=== PATIENT | male | born 1945 | race Two or more races ===

== ENCOUNTER → 2016-12-30 11:37 | Emergency (ER) | payer MEDICARE ==
[2016-12-30 12:09] LABS: Hematocrit 31 % (42-52); Hemoglobin 9.9 g/dl (14.0-18.0); Mean Corpuscular HGB Conc 32 g/dl (31-36); Mean Corpuscular Hemoglobin 28 pg (27-31); Mean Corpuscular Volume 88 fL (80-94); Mean Platelet Volume 11 um3 (7.4-10.4); Red Cell Distribution Width 17 % (10.5-15); White Blood Count 4.7 10^3/ul (3.5-10.8)
[2016-12-30 12:26] LABS: Albumin 3.7 g/dL (3.2-5.2); BUN/Creatinine Ratio 15.7 (8-20); Calcium 8.8 mg/dL (8.6-10.3); EGFR African American 40.1 (>60); EGFR Non-African American 31.2 (>60); Globulin 3.2 g/dL (2-4); Potassium 4.9 mmol/L (3.5-5.0); Total Bilirubin 0.6 mg/dL (0.2-1.0); Total Protein 6.9 g/dL (6.4-8.9)
--- NOTE | 2016-12-30 12:27 | RAD ---
HISTORY: Shortness of breath COMPARISONS: November 06, 2016, CT dated March 24, 2016 VIEWS: 2: Frontal dual-energy and lateral views of the chest. FINDINGS: CARDIOMEDIASTINAL SILHOUETTE: The cardiomediastinal silhouette is normal. MARYBETH: The marybeth are normal. PLEURA: The costophrenic angles are sharp. No pleural abnormalities are noted. LUNG PARENCHYMA: There is hyperinflation with flattening of the diaphragm and expansion of the AP diameter of the chest. ABDOMEN: The upper abdomen is clear. There is no subphrenic gas. BONES AND SOFT TISSUES: No bone or soft tissue abnormalities are noted. OTHER: None. IMPRESSION: HYPERINFLATION, CONSISTENT WITH COPD. NO ACTIVE CARDIOPULMONARY DISEASE.
[2016-12-30 12:54] LABS: C Reactive Protein 11.79 mg/L (< 5.00)
[2016-12-30 15:37] VITALS: BP 132/67
--- NOTE | 2016-12-31 17:51 | ED ---
Nilton Collier Aidan, scribed for Lauri Singh MD on 12/30/16 at 1212 . Shortness of Breath - HPI Summary HPI Summary: 71 y/o male presents to the ED with a complaint of acute, constant moderate SOB on light exertion that began 4-5 days ago and worsened today. Associated symptoms include bilateral lower extremity edema. Additionally, 2 days ago he made many BMs. Pt denies any CP, cough, fevers, chills, abdominal pain, nausea, or vomiting. - History of Current Complaint Chief Complaint: EDShortnessOfBreath Time Seen by Provider: 12/30/16 11:46 Hx Obtained From: Patient Onset/Duration: Sudden Onset, Lasting Days, Still Present, Worse Since - today Timing: Constant - during mild exertion, as light as bending over or standing up Current Severity: Mild Dyspnea At: Exertion - very light exertion Aggrevating Factors: Nothing - unknown Alleviating Factors: Nothing - unknown Associated Signs & Symptoms: Edema - bilateral lower extremity edema, 2 days ago , pt made many BMs - Risk Factors Pulmonary Embolism: Smoking Cardiac: Smoking, Hypertension - Allergy/Home Medications Allergies/Adverse Reactions: Allergies Allergy/AdvReac Type Severity Reaction Status Date / Time Cephalexin [From Keflex] Allergy Mild Rash Verified 12/30/16 11:39 Ciprofloxacin [From Cipro] Allergy Mild Rash Verified 12/30/16 11:39 Oxaprozin [From Daypro] Allergy Rash Verified 12/30/16 11:39 PMH/Surg Hx/FS Hx/Imm Hx Endocrine/Hematology History: Denies: Hx Diabetes, Hx Systemic Lupus Erythematosus Cardiovascular History: Reports: Hx Angina - not currently, Hx Hypercholesterolemia, Hx Hypertension, Hx Valvular Heart Disease, Other Cardiovascular Problems/Disorders - cardiac stents Denies: Hx Congestive Heart Failure, Hx Pacemaker/ICD Respiratory History: Reports: Hx Sleep Apnea, Other Respiratory Problems/ Disorders Denies: Hx Asthma GI History: Reports: Hx Hiatal Hernia, Hx Jaundice, Other GI Disorders - ,hx constipation History: Reports: Hx Renal Disease - VERY LOW GFR/ RENAL INSUFFIENCEY, Other Problems/Disorders - RECENT BLOOD IN URINE Denies: Hx Dialysis Musculoskeletal History: Denies: Hx Rheumatoid Arthritis Sensory History: Reports: Hx Contacts or Glasses - GLASSES Denies: Hx Cataracts, Hx Glaucoma, Hx Hearing Aid Opthamlomology History: Reports: Hx Contacts or Glasses - GLASSES Denies: Hx Cataracts, Hx Glaucoma Psychiatric History: Denies: Hx Panic Disorder - Cancer History Cancer Type, Location and Year: colon ca -dr caban pt. LYMPH NODE - W/ CHEMO & RADIATION Hx Chemotherapy: Yes Hx Radiation Therapy: Yes - Surgical History Surgery Procedure, Year, and Place: colon cancer dx 8 yrs prior with a partial bowel resection,. partial thyroidectomy benign,. cardiac stents AT [facility]- REPORT IN OTHER FACILTY REPORTS ( [id number]/CM) Hx Anesthesia Reactions: No Infectious Disease History: No Infectious Disease History: Denies: Hx Clostridium Difficile, Hx Hepatitis, Hx Human Immunodeficiency Virus (HIV), Hx of Known/Suspected MRSA, Hx Shingles, Hx Tuberculosis, Hx Known/ Suspected VRE, Hx Known/Suspected VRSA, History Other Infectious Disease, Traveled Outside the [place] in Last 30 Days - Family History Known Family History: Positive: Cardiac Disease - CAD - BROTHER, Other - BLADDER CANCER - FATHER - Social History Occupation: Employed Full-time Lives: With Family Alcohol Use: None Alcohol Amount: 12 WINE/SCOTCH MONTH Hx Substance Use: No Substance Use Type: Reports: None Hx Tobacco Use: Yes Smoking Status (MU): Light Every Day Tobacco Smoker Type: Cigarettes Amount Used/How Often: 1/2 PPD FOR 50 YRS Length of Time of Smoking/Using Tobacco: 50 YRS Have You Smoked in the Last Year: Yes Review of Systems Constitutional: Negative Eyes: Negative ENT: Negative Cardiovascular: Negative Positive: Shortness Of Breath. Negative: Cough Gastrointestinal: Negative Genitourinary: Negative Positive: Edema. Negative: Arthralgia, Myalgia, Decreased ROM Skin: Negative Neurological: Negative Psychological: Normal All Other Systems Reviewed And Are Negative: Yes Physical Exam - Summary Physical Exam Summary: VITAL SIGNS: Reviewed. elderly male with no acute distress GENERAL: Patient is a well-developed and nourished (MALE) who is lying comfortable in the stretcher. Patient is not in any acute respiratory distress. HEAD AND FACE: No signs of trauma. No ecchymosis, hematomas or skull depressions. No sinus tenderness. EYES: PERRLA, EOMI x 2, No injected conjunctiva, no nystagmus. EARS: Hearing grossly intact. Ear canals and tympanic membranes are within normal limits. MOUTH: Oropharynx within normal limits. NECK: Supple, trachea is midline, no adenopathy, no JVD, no carotid bruit, no c- spine tenderness, neck with full ROM. CHEST: Symmetric, no tenderness at palpation LUNGS: Clear to auscultation bilaterally. No wheezing or crackles. CVS: Regular rate and rhythm, S1 and S2 present, no murmurs or gallops appreciated. ABDOMEN: Soft, non-tender. No signs of distention. No rebound no guarding, and no masses palpated. Bowel sounds are normal. EXTREMITIES: FROM in all major joints, no edema, no cyanosis or clubbing. NEURO: Alert and oriented x 3. No acute neurological deficits. Speech is normal and follows commands. SKIN: Dry and warm Vital Signs On Initial Exam: Initial Vitals Temp Pulse Resp BP Pulse Ox 97.5 F 62 18 132/68 100 12/30/16 11:39 12/30/16 11:39 12/30/16 11:39 12/30/16 11:39 12/30/16 11:39 Diagnostics - Vital Signs Vital Signs Temp Pulse Resp BP Pulse Ox 12/30/16 11:39 97.5 F 62 18 132/68 100 - Laboratory Result Diagrams: 12/30/16 12:00 12/30/16 12:00 Lab Statement: Any lab studies that have been ordered have been reviewed, and results considered in the medical decision making process. - Radiology CHEST X-RAY Xray Interpretation: Positive (See Comments) - IMPRESSION: HYPERINFLATION, CONSISTENT WITH COPD. NO ACTIVE CARDIOPULMONARY DISEASE. Radiology Interpretation Completed By: Radiologist - EKG EKG 1147 Cardiac Rate: Bradycardia - 61 BPM EKG Rhythm: Sinus Rhythm EKG Interpretation: SINUS RHYTHM, NO ST ELEVATIONS, NO CHANGES FROM PRIOR EKG ON 12/28/16 Course/Dx - Course Course Of Treatment: 71 y/o male presents with SOB on very light exertion. Labs and imaging reviewed. Troponin was 0.00. Tests results within normal limits except for mild chronic anemia, chronic renal failure, and BNP of 378. D-Dimer was 264. At this time, the patient may be having SOB secondary to chronic anemia, secondary to chronic renal failure since SOB is only on exertion. Chest x-ray doesnt show any pneumonia or bronchitis. I discussed the findings and tests results with the patient and patients nephew who is a avionics electronics technician at [employer]. He does not wish to do a VQ scan since he thinks the symptoms are secondary to chronic anemia. Therefore they want to be discharged home and follow up with nephrology. At this time the patient is A&Ox3 and asymptomatic. Therefore, he will be discharged home with follow up to [facility] cho[facility]. The patient will be diagnosed with dehydration and anemia. - Diagnoses Provider Diagnoses: Dehydration, Anemia Discharge - Discharge Plan Condition: Stable Disposition: HOME Discharge Disposition Comment: Please follow up with nephrology within 3 days. Patient Education Materials: Dehydration (ED), Anemia (ED) Referrals: Yuri Moran MD [Primary Care Provider] - The documentation as recorded by the Nilton marin Aidan accurately reflects the service I personally performed and the decisions made by , Lauri Singh MD.
== END | disposition home or self-care (01) ==
LOC: ED 11:37
DX: E86.0 Dehydration (principal); D64.9 Anemia, unspecified; R06.02 Shortness of breath; R60.0 Localized edema
CPT/HCPCS: 36415; 71020; 80053; 82550; 82553; 83605; 83880; 84484; 85025; 85379; 85730; 86140; 87040; 93005; 99283

== ENCOUNTER 2017-01-18 13:04 | Emergency (ER) | payer MEDICARE ==
[2017-01-18] MEDS ORDERED: Clindamycin 600 MG IVPREMIX(* 600 MG/50 ML SDV IV ONE (13:57)
[2017-01-18 14:35] LABS: Hematocrit 36 % (42-52); Hemoglobin 11.8 g/dl (14.0-18.0); Mean Corpuscular HGB Conc 33 g/dl (31-36); Mean Corpuscular Hemoglobin 29 pg (27-31); Mean Corpuscular Volume 89 fL (80-94); Mean Platelet Volume 10 um3 (7.4-10.4); Red Blood Count 4.02 10^6/ul (4.0-5.4); Red Cell Distribution Width 16 % (10.5-15); White Blood Count 9.4 10^3/ul (3.5-10.8)
[2017-01-18 14:52] LABS: BUN/Creatinine Ratio 15.6 (8-20); Calcium 9.6 mg/dL (8.6-10.3); EGFR African American 46.2 (>60); EGFR Non-African American 35.9 (>60); Globulin 4.1 g/dL (2-4); Potassium 3.9 mmol/L (3.5-5.0); Total Bilirubin 1.3 mg/dL (0.2-1.0); Total Protein 8.1 g/dL (6.4-8.9)
[2017-01-18] MEDS ORDERED: NS 0.9% 1000 ML* 1,000 ML IV ONE (15:04)
[2017-01-18] MEDS ORDERED: Iodixanol* (CONTRAST) 320 MG/ML 100 ML SDV IV ONE (15:17)
--- NOTE | 2017-01-18 15:52 | ED ---
Throat Pain/Nasal Congestion - HPI Summary HPI Summary: 71M w/ PMH of renal insufficiency and colon CA presents with left side dental pain for 3 weeks. He has been on PCN for 10 days and the swelling on the left side of his face has been getting worst and is moving down his neck. He has trismus. He denies any fever, chest pain, SOB, or difficulty swallowing. He states pain in his tooth as at 17-18. He was seen by dentist today and transferred here for antibiotic change. He will have his tooth removed when dental infection is done. He has not been taking anything for pain and does not want anything. He did have CA in his lymph nodes and had radiation in his neck with last dose three years ago so he says his bones are weaker in his jaw. His cancer treatment was done at [facility]. - History of Current Complaint Chief Complaint: EDDentalPain Time Seen by Provider: 01/18/17 13:16 - Allergies/Home Medications Allergies/Adverse Reactions: Allergies Allergy/AdvReac Type Severity Reaction Status Date / Time Cephalexin [From Keflex] Allergy Mild Rash Verified 12/30/16 11:39 Ciprofloxacin [From Cipro] Allergy Mild Rash Verified 12/30/16 11:39 Oxaprozin [From Daypro] Allergy Rash Verified 12/30/16 11:39 PMH/Surg Hx/FS Hx/Imm Hx Endocrine/Hematology History: Denies: Hx Diabetes, Hx Systemic Lupus Erythematosus Cardiovascular History: Reports: Hx Angina - not currently, Hx Hypercholesterolemia, Hx Hypertension, Hx Valvular Heart Disease, Other Cardiovascular Problems/Disorders - cardiac stents Denies: Hx Congestive Heart Failure, Hx Pacemaker/ICD Respiratory History: Reports: Hx Sleep Apnea, Other Respiratory Problems/ Disorders Denies: Hx Asthma GI History: Reports: Hx Hiatal Hernia, Hx Jaundice, Other GI Disorders - ,hx constipation History: Reports: Hx Renal Disease - VERY LOW GFR/ RENAL INSUFFIENCEY, Other Problems/Disorders - RECENT BLOOD IN URINE Denies: Hx Dialysis Musculoskeletal History: Denies: Hx Rheumatoid Arthritis Sensory History: Reports: Hx Contacts or Glasses - GLASSES Denies: Hx Cataracts, Hx Glaucoma, Hx Hearing Aid Opthamlomology History: Reports: Hx Contacts or Glasses - GLASSES Denies: Hx Cataracts, Hx Glaucoma Psychiatric History: Denies: Hx Panic Disorder - Cancer History Cancer Type, Location and Year: colon ca -dr caban pt. LYMPH NODE - W/ CHEMO & RADIATION Hx Chemotherapy: Yes Hx Radiation Therapy: Yes - Surgical History Surgery Procedure, Year, and Place: colon cancer dx 8 yrs prior with a partial bowel resection,. partial thyroidectomy benign,. cardiac stents AT [facility]- REPORT IN OTHER FACILTY REPORTS ( [facility]) Hx Anesthesia Reactions: No Infectious Disease History: No Infectious Disease History: Denies: Hx Clostridium Difficile, Hx Hepatitis, Hx Human Immunodeficiency Virus (HIV), Hx of Known/Suspected MRSA, Hx Shingles, Hx Tuberculosis, Hx Known/ Suspected VRE, Hx Known/Suspected VRSA, History Other Infectious Disease, Traveled Outside the [place] in Last 30 Days - Family History Known Family History: Positive: None, Cardiac Disease - CAD - BROTHER, Other - BLADDER CANCER - FATHER - Social History Alcohol Use: None Alcohol Amount: 12 WINE/SCOTCH MONTH Hx Substance Use: No Substance Use Type: Reports: None Hx Tobacco Use: Yes Smoking Status (MU): Light Every Day Tobacco Smoker Type: Cigarettes Amount Used/How Often: 1/2 PPD FOR 50 YRS Length of Time of Smoking/Using Tobacco: 50 YRS Have You Smoked in the Last Year: Yes Review of Systems Negative: Fever Positive: Dental Pain Negative: Chest Pain Negative: Shortness Of Breath All Other Systems Reviewed And Are Negative: Yes Physical Exam Triage Information Reviewed: Yes Vital Signs On Initial Exam: Initial Vitals Temp Pulse Resp BP Pulse Ox 98.8 F 89 18 157/64 99 01/18/17 13:07 01/18/17 13:07 01/18/17 13:07 01/18/17 13:07 01/18/17 13:07 Vital Signs Reviewed: Yes Appearance: Positive: Well-Appearing Skin: Positive: Warm, Dry Head/Face: Positive: Other - swelling noted to left lower jaw that extends half way down neck Eyes: Positive: Normal, EOMI, JOSTIN, Conjunctiva Clear ENT: Positive: TMs normal, Trismus. Negative: Muffled/hoarse voice Dental: Positive: Percussion Tenderness @ - 17-18, Gross Decay/Caries @ Neck: Positive: Other: - tender along left side of neck Respiratory/Lung Sounds: Positive: Clear to Auscultation, Breath Sounds Present Cardiovascular: Positive: Normal, RRR Diagnostics - Vital Signs Vital Signs Temp Pulse Resp BP Pulse Ox 01/18/17 13:30 98.8 F 89 18 157/64 99 01/18/17 13:07 98.8 F 89 18 157/64 99 - Laboratory Lab Results: Lab Results 01/18/17 01/18/17 01/18/17 Range/Units 14:20 14:20 14:20 WBC 9.4 (3.5-10.8) 10^3/ul RBC 4.02 (4.0-5.4) 10^6/ul Hgb 11.8 L (14.0-18.0) g/dl Hct 36 L (42-52) % MCV 89 (80-94) fL MCH 29 (27-31) pg MCHC 33 (31-36) g/dl RDW 16 H (10.5-15) % Plt Count 156 (150-450) 10^3/ul MPV 10 (7.4-10.4) um3 Neut % (Auto) 82.1 (38-83) % Lymph % (Auto) 7.5 L (25-47) % Butler % (Auto) 10.0 H (1-9) % Eos % (Auto) 0.1 (0-6) % Baso % (Auto) 0.3 (0-2) % Absolute Neuts (auto) 7.7 (1.5-7.7) 10^3/ul Absolute Lymphs (auto) 0.7 L (1.0-4.8) 10^3/ul Absolute Monos (auto) 0.9 H (0-0.8) 10^3/ul Absolute Eos (auto) 0 (0-0.6) 10^3/ul Absolute Basos (auto) 0 (0-0.2) 10^3/ul Absolute Nucleated RBC 0 10^3/ul Nucleated RBC % 0 Sodium 135 (133-145) mmol/L Potassium 3.9 (3.5-5.0) mmol/L Chloride 98 L (101-111) mmol/L Carbon Dioxide 28 (22-32) mmol/L Anion Gap 9 (2-11) mmol/L BUN 29 H (6-24) mg/dL Creatinine 1.86 H (0.67-1.17) mg/dL Est GFR ( Amer) 46.2 (>60) Est GFR (Non-Af Amer) 35.9 (>60) BUN/Creatinine Ratio 15.6 (8-20) Glucose 117 H (70-100) mg/dL Lactic Acid 3.0 H* (0.5-2.0) mmol/L Calcium 9.6 (8.6-10.3) mg/dL Total Bilirubin 1.30 H (0.2-1.0) mg/dL AST 15 (13-39) U/L ALT 10 (7-52) U/L Alkaline Phosphatase 84 (34-104) U/L Total Protein 8.1 (6.4-8.9) g/dL Albumin 4.0 (3.2-5.2) g/dL Globulin 4.1 H (2-4) g/dL Albumin/Globulin Ratio 1.0 (1-3) Result Diagrams: 01/18/17 14:20 01/18/17 14:20 Lab Statement: Any lab studies that have been ordered have been reviewed, and results considered in the medical decision making process. - CT neck CT Interpretation: Positive (See Comments) - IMPRESSION: 1. THERE IS ASYMMETRIC ENLARGEMENT OF THE LEFT MASSETER WITH GAS DENSITY NOTED ALONG THE MANDIBLE, CONSISTENT WITH CELLULITIS EXTENDING FROM AN ODONTOGENIC INFECTION. THERE IS NO DEFINITE LOCULATED FLUID COLLECTION TO SUGGEST SOFT TISSUE ABSCESS. THERE IS ASSOCIATED PERIAPICAL LUCENCY OF THE LEFT MANDIBULAR MOLARS 2. ADDITIONALLY, THERE IS A NONDISPLACED FRACTURE OF THE LEFT MANDIBULAR MOLAR WITH EXTENSION TO THE ALVEOLAR PROCESSES OF THE LAST MANDIBULAR MOLARS. 3. AGAIN NOTED IS ASYMMETRIC MUCOSAL THICKENING OF THE LEFT PIRIFORM SINUS. 4. AGAIN NOTED IS HETEROGENEOUS AND ENLARGED RIGHT THYROID IS SUBSTERNAL EXTENSION CT Interpretation Completed By: Radiologist EENT Course/Dx - Course Course Of Treatment: 71M w/ PMH of renal insufficiency and throat CA presents with left side dental pain for 3 weeks. He has been on PCN for 10 days and the swelling on the left side of his face has been getting worst and is moving down his neck. He has trismus. He denies any fever, chest pain, SOB, or difficulty swallowing. He states pain in his lower left jaw. He was seen by dentist today and transferred here for antibiotic change. He did have CA in his lymph nodes and had radiation with last dose three years ago His cancer treatment was done at [facility]. On exam has trismus and extensive swelling of left side of jaw to half way down neck. CT neck shows cellulitis near mandible no definitive osteomyelitis seen but has fracture of mandibular molar with extension to other molars. spoke with dr ruth recommended speak with ENT as no oral surgery. gave clindamycin 900mg. Spoke with Dr Michaels who is familiar with patient and says patient needs to be transfer as will likely need extensive surgery and no oral surgery on. offered to transfer to [place] where had CA treatment and patient would like to go to [facility]. discussed signing out AMA vs ambulance as family brought it up and patient states would like ambulance. called [facility] and dr Blake accepts transfer - Differential Diagnoses Differential Diagnoses: Dental Abscess, Dhruv's Angina, Other - osteomyelitis - Diagnoses Provider Diagnoses: Dental abscess, Osteomyelitis of jaw - Provider Notifications Discussed Care Of Patient With: dr Michaels Time Discussed With Above Provider: 16:15 - patient has extensive CA history and will be too complicated a surgery for [facility] and no oral surgery coverage so recommends transfer Discharge - Discharge Plan Condition: Stable Disposition: TRANS HIGHER LVL OF CARE FAC Referrals: Yuri Moran MD [Primary Care Provider] - Images - Images Dental: 1 - dental pain
--- NOTE | 2017-01-18 15:52 | RAD ---
HISTORY: Left lower dental abscess with swelling down back COMPARISONS: November 03, 2015 TECHNIQUE: Multiple contiguous axial CT scans were obtained of the neck after the administration of nonionic intravenous contrast, with coronal and sagittal multiplanar reformations. FINDINGS: BRAIN AND ORBITS: The visualized brain and orbits are normal. PARANASAL SINUSES: There is mucosal thickening of the left maxillary sinus SALIVARY GLANDS: The parotid glands, submandibular glands, sublingual glands are normal. NASAL CAVITY/NASOPHARYNX: The nasal cavity and nasopharynx are normal. ORAL CAVITY/OROPHARYNX: There is asymmetric enlargement of the left masseter with gas density noted along the angle of the left mandible. Additionally, there is periapical lucency along the last mandibular molar with cortical disruption. Additionally, there is a nondisplaced fracture of the angle of the mandible extending to the alveoli of the left mandibular molars. There is stable asymmetric mucosal thickening of the left piriform sinus LARYNGEAL APPARATUS/HYPOPHARYNX: The laryngeal apparatus and hypopharynx are normal. UPPER AIRWAY/UPPER ESOPHAGUS: The visualized upper airway and esophagus are normal. LUNG APICES: The lung apices are clear. THYROID GLAND: The left thyroid is absent. Again noted is a heterogeneous and enlarged multinodular right thyroid with substernal extension. This is similar to the previous examination LYMPH NODES: There are scattered small, less than 1 cm short axis, lymph nodes noted along the anterior and posterior cervical chain. There is no lymphadenopathy by size criteria. VASCULATURE: There is calcification of the carotid bifurcations. BONES AND SOFT TISSUES: Degenerative changes are noted of the spine. Note is noted above, there is a nondisplaced fracture through the angle of the left mandible with extension to the alveoli of the last mandibular molars OTHER: None. IMPRESSION: 1. THERE IS ASYMMETRIC ENLARGEMENT OF THE LEFT MASSETER WITH GAS DENSITY NOTED ALONG THE MANDIBLE, CONSISTENT WITH CELLULITIS EXTENDING FROM AN ODONTOGENIC INFECTION. THERE IS NO DEFINITE LOCULATED FLUID COLLECTION TO SUGGEST SOFT TISSUE ABSCESS. THERE IS ASSOCIATED PERIAPICAL LUCENCY OF THE LEFT MANDIBULAR MOLARS 2. ADDITIONALLY, THERE IS A NONDISPLACED FRACTURE OF THE LEFT MANDIBULAR MOLAR WITH EXTENSION TO THE ALVEOLAR PROCESSES OF THE LAST MANDIBULAR MOLARS. 3. AGAIN NOTED IS ASYMMETRIC MUCOSAL THICKENING OF THE LEFT PIRIFORM SINUS. 4. AGAIN NOTED IS HETEROGENEOUS AND ENLARGED RIGHT THYROID IS SUBSTERNAL EXTENSION
[2017-01-18] MEDS ORDERED: Clindamycin 300 MG IVPREMIX(* 300 MG/50 ML SDV IV ONE (16:29)
[2017-01-18 16:43] VITALS: BP 156/69
== END 2017-01-18 17:52 | disposition short-term general hospital (02) ==
LOC: ED 13:04
DX: M86.9 Osteomyelitis, unspecified (principal); K04.7 Periapical abscess without sinus; K08.89 Other specified disorders of teeth and supporting structures
CPT/HCPCS: 36415; 70491; 80053; 83605; 85025; 96365; 99283; Q9967

== ENCOUNTER 2017-02-03 09:06 | Emergency (ER) | payer MEDICARE ==
[2017-02-03 09:13] VITALS: BP 171/67
--- NOTE | 2017-02-03 10:34 | RAD ---
Indication: PICC line removal. Comparison is made with previous exam dated December 30, 2016. 2 views of the chest including dual energy PA views demonstrates no mediastinal shift. Heart is of normal size and configuration. Hyperinflated lung lord are noted. Specifically there is no evidence of a residual PICC line fragment. IMPRESSION: Hyperinflated lung lord with no definite pneumonia.
--- NOTE | 2017-02-03 17:38 | ED ---
Genet Collier Auryana, scribed for Lauri Singh MD on 02/03/17 at 1006 . Complex/Multi-Sys Presentation - HPI Summary HPI Summary: 71 year old male presents to the ED with c/o PICC line removal. Patient reports that this morning when he was removing clothes, the PICC line was accidentally pulled out with it. 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 Patient denies any other problems today. PMHx is significant for lymphoma, HTN, cardiac stents, and colon CA with resection. - History Of Current Complaint Chief Complaint: EDGeneral Time Seen by Provider: 02/03/17 09:56 Hx Obtained From: Patient Onset/Duration: Sudden Onset - this morning, Still Present Timing: Constant Severity Currently: Mild Severity Initially: Mild Location: Negative Associated Signs And Symptoms: Positive: Other - no other c/o aside from accidental PICC removal Related History: Recent Illness - see HPI - Allergies/Home Medications Allergies/Adverse Reactions: Allergies Allergy/AdvReac Type Severity Reaction Status Date / Time Cephalexin [From Keflex] Allergy Mild Rash Verified 02/03/17 09:09 Ciprofloxacin [From Cipro] Allergy Mild Rash Verified 02/03/17 09:09 Oxaprozin [From Daypro] Allergy Rash Verified 02/03/17 09:09 PMH/Surg Hx/FS Hx/Imm Hx Endocrine/Hematology History: Denies: Hx Diabetes, Hx Systemic Lupus Erythematosus Cardiovascular History: Reports: Hx Angina - not currently, Hx Hypercholesterolemia, Hx Hypertension, Hx Valvular Heart Disease, Other Cardiovascular Problems/Disorders - cardiac stents Denies: Hx Congestive Heart Failure, Hx Pacemaker/ICD Respiratory History: Reports: Hx Sleep Apnea, Other Respiratory Problems/ Disorders Denies: Hx Asthma GI History: Reports: Hx Hiatal Hernia, Hx Jaundice, Other GI Disorders - ,hx constipation History: Reports: Hx Renal Disease - VERY LOW GFR/ RENAL INSUFFIENCEY, Other Problems/Disorders - RECENT BLOOD IN URINE Denies: Hx Dialysis Musculoskeletal History: Denies: Hx Rheumatoid Arthritis Sensory History: Reports: Hx Contacts or Glasses - GLASSES Denies: Hx Cataracts, Hx Glaucoma, Hx Hearing Aid Opthamlomology History: Reports: Hx Contacts or Glasses - GLASSES Denies: Hx Cataracts, Hx Glaucoma Psychiatric History: Denies: Hx Panic Disorder - Cancer History Cancer Type, Location and Year: colon ca -dr caban pt. LYMPH NODE - W/ CHEMO & RADIATION Hx Chemotherapy: Yes Hx Radiation Therapy: Yes - Surgical History Surgery Procedure, Year, and Place: colon cancer dx 8 yrs prior with a partial bowel resection,. partial thyroidectomy benign,. cardiac stents AT [facility]- REPORT IN OTHER FACILTY REPORTS ( [facility]/CM) Hx Anesthesia Reactions: No Infectious Disease History: No Infectious Disease History: Denies: Hx Clostridium Difficile, Hx Hepatitis, Hx Human Immunodeficiency Virus (HIV), Hx of Known/Suspected MRSA, Hx Shingles, Hx Tuberculosis, Hx Known/ Suspected VRE, Hx Known/Suspected VRSA, History Other Infectious Disease, Traveled Outside the [place] in Last 30 Days - Family History Known Family History: Positive: Cardiac Disease - CAD - BROTHER, Other - BLADDER CANCER - FATHER - Social History Alcohol Use: None Alcohol Amount: 12 WINE/SCOTCH MONTH Hx Substance Use: No Substance Use Type: Reports: None Hx Tobacco Use: Yes Smoking Status (MU): Light Every Day Tobacco Smoker Type: Cigarettes Amount Used/How Often: 1/2 PPD FOR 50 YRS Length of Time of Smoking/Using Tobacco: 50 YRS Have You Smoked in the Last Year: Yes Review of Systems Constitutional: Negative Negative: Fever Eyes: Negative ENT: Negative Cardiovascular: Negative Respiratory: Negative Gastrointestinal: Negative Genitourinary: Negative Musculoskeletal: Negative Positive: Other - removed PICC line Neurological: Negative Psychological: Normal All Other Systems Reviewed And Are Negative: Yes Physical Exam - Summary Physical Exam Summary: VITAL SIGNS: Reviewed. GENERAL: Patient is a well-developed and nourished male who is lying comfortable in the stretcher. Patient is not in any acute respiratory distress. No signs of pain. HEAD AND FACE: No signs of trauma. No ecchymosis, hematomas or skull depressions. No sinus tenderness. EYES: PERRLA, EOMI x 2, No injected conjunctiva, no nystagmus. EARS: Hearing grossly intact. Ear canals and tympanic membranes are within normal limits. MOUTH: Oropharynx within normal limits. NECK: Supple, trachea is midline, no adenopathy, no JVD, no carotid bruit, no c- spine tenderness, neck with full ROM. CHEST: Symmetric, no tenderness at palpation LUNGS: Clear to auscultation bilaterally. No wheezing or crackles. CVS: Regular rate and rhythm, S1 and S2 present, no murmurs or gallops appreciated. ABDOMEN: Soft, non-tender. No signs of distention. No rebound no guarding, and no masses palpated. Bowel sounds are normal. EXTREMITIES: FROM in all major joints, no edema, no cyanosis or clubbing. NEURO: Alert and oriented x 3. No acute neurological deficits. Speech is normal and follows commands. SKIN: Dry and warm. No signs of bleeding. Triage Information Reviewed: Yes Vital Signs On Initial Exam: Initial Vitals Temp Pulse Resp BP Pulse Ox 97.0 F 78 18 171/67 99 02/03/17 09:09 02/03/17 09:09 02/03/17 09:09 02/03/17 09:09 02/03/17 09:09 Vital Signs Reviewed: Yes Diagnostics - Vital Signs Vital Signs Temp Pulse Resp BP Pulse Ox 02/03/17 09:09 97.0 F 78 18 171/67 99 - Laboratory Lab Statement: Any lab studies that have been ordered have been reviewed, and results considered in the medical decision making process. - Radiology CXR Xray Interpretation: No Acute Changes - IMPRESSION: Hyperinflated lung lord with no definite pneumonia. Radiology Interpretation Completed By: Radiologist Complex Multi-Symp Course/Dx Assessment/Plan: 71 year old male presents to the ED with c/o PICC line removal. Patient reports that this morning when he was removing clothes, the PICC line was accidentally pulled out with it. 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 Patient denies any other problems today. PMHx is significant for lymphoma, HTN, cardiac stents, and colon CA with resection. Patient accidentally removed his picc line for which he gets antibiotic infusion 24 hours per day for jaw osteomyelitis. CXR - IMPRESSION: Hyperinflated lung lord with no definite pneumonia. Troy Cerda charge nurse reports there is no IR for picc line placement. I offered peripheral access for continuation of antibiotics or transfer patient to [facility]. However patient and patients daughter declines. They will drive to [facility] where initially the picc line was placed. Patient will be discharged home with f/u of PMD. - Diagnoses Provider Diagnoses: accidental PICC line removal Discharge - Discharge Plan Condition: Stable Disposition: HOME Patient Education Materials: Peripherally Inserted Central Catheters and Midline Catheters (ED) Referrals: Yuri Moran MD [Medical Doctor] - () Additional Instructions: PLEASE FOLLOW UP AT [facility] FOR REPLACEMENT OF PICC LINE. The documentation as recorded by the Genet marin Auryana accurately reflects the service I personally performed and the decisions made by , Lauri Singh MD.
== END 2017-02-03 11:06 | disposition home or self-care (01) ==
LOC: ED 09:06
DX: Z45.2 Encounter for adjustment and management of vascular access device (principal)
CPT/HCPCS: 71020; 99282

== ENCOUNTER 2017-02-03 21:08 | Emergency (ER) | payer MEDICARE ==
[2017-02-04 01:40] LABS: Hematocrit 29 % (42-52); Hemoglobin 9.6 g/dl (14.0-18.0); Mean Corpuscular HGB Conc 33 g/dl (31-36); Mean Corpuscular Hemoglobin 30 pg (27-31); Mean Corpuscular Volume 89 fL (80-94); Mean Platelet Volume 9 um3 (7.4-10.4); Red Blood Count 3.23 10^6/ul (4.0-5.4); Red Cell Distribution Width 17 % (10.5-15); White Blood Count 5.8 10^3/ul (3.5-10.8)
[2017-02-04 02:11] LABS: BUN/Creatinine Ratio 15.9 (8-20); Calcium 9.2 mg/dL (8.6-10.3); EGFR African American 47.3 (>60); EGFR Non-African American 36.8 (>60); Potassium 4.1 mmol/L (3.5-5.0)
[2017-02-04] MEDS ORDERED: Vancomycin(*) 1,000 MG in NS 0.9% 250 ML* 250 ML IVPB ONE (02:20)
--- NOTE | 2017-02-04 03:15 | ED ---
Shante Collier Rebecca, scribed for Matthew Vega MD on 02/04/17 at 0025 . Complex/Multi-Sys Presentation - HPI Summary HPI Summary: Pt is a 71 y/o M who presents to ED after accidentally removing/losing his PICC line this morning. Associated pain is currently mild, ranked 2/10. Sx aggravated and alleviated by nothing. Pt initially had PICC line put in place to receive Abx to treat osteomyelitis of the jaw. Reports that he consulted with Dr. Singh who advised that he come to [facility] ED where an IV could be put in place. Per pt, he was told this would allow him to receive IV Abx for the next 48 hours as an outpatient, with a new PICC line put in place in 2 days. - History Of Current Complaint Chief Complaint: EDGeneral Time Seen by Provider: 02/04/17 00:16 Hx Obtained From: Patient Onset/Duration: Still Present Severity Initially: Mild Location: Pain At: - PICC line location Aggravating Factor(s): Nothing Alleviating Factor(s): Nothing Associated Signs And Symptoms: Positive: Other - PICC line removed - Allergies/Home Medications Allergies/Adverse Reactions: Allergies Allergy/AdvReac Type Severity Reaction Status Date / Time Cephalexin [From Keflex] Allergy Mild Rash Verified 02/03/17 09:09 Ciprofloxacin [From Cipro] Allergy Mild Rash Verified 02/03/17 09:09 Oxaprozin [From Daypro] Allergy Rash Verified 02/03/17 09:09 PMH/Surg Hx/FS Hx/Imm Hx Endocrine/Hematology History: Denies: Hx Diabetes, Hx Systemic Lupus Erythematosus Cardiovascular History: Reports: Hx Angina - not currently, Hx Hypercholesterolemia, Hx Hypertension, Hx Valvular Heart Disease, Other Cardiovascular Problems/Disorders - cardiac stents Denies: Hx Congestive Heart Failure, Hx Pacemaker/ICD Respiratory History: Reports: Hx Sleep Apnea, Other Respiratory Problems/ Disorders Denies: Hx Asthma GI History: Reports: Hx Hiatal Hernia, Hx Jaundice, Other GI Disorders - ,hx constipation History: Reports: Hx Renal Disease - VERY LOW GFR/ RENAL INSUFFIENCEY, Other Problems/Disorders - RECENT BLOOD IN URINE Denies: Hx Dialysis Musculoskeletal History: Denies: Hx Rheumatoid Arthritis Sensory History: Reports: Hx Contacts or Glasses - GLASSES Denies: Hx Cataracts, Hx Glaucoma, Hx Hearing Aid Opthamlomology History: Reports: Hx Contacts or Glasses - GLASSES Denies: Hx Cataracts, Hx Glaucoma Psychiatric History: Denies: Hx Panic Disorder - Cancer History Cancer Type, Location and Year: colon ca -dr caban pt. LYMPH NODE - W/ CHEMO & RADIATION Hx Chemotherapy: Yes Hx Radiation Therapy: Yes - Surgical History Surgery Procedure, Year, and Place: colon cancer dx 8 yrs prior with a partial bowel resection,. partial thyroidectomy benign,. cardiac stents AT [facility]- REPORT IN OTHER FACILTY REPORTS ( [facility]/CM) Hx Anesthesia Reactions: No Infectious Disease History: Denies: Hx Clostridium Difficile, Hx Hepatitis, Hx Human Immunodeficiency Virus (HIV), Hx of Known/Suspected MRSA, Hx Shingles, Hx Tuberculosis, Hx Known/ Suspected VRE, Hx Known/Suspected VRSA, History Other Infectious Disease, Traveled Outside the in Last 30 Days - Family History Known Family History: Positive: Cardiac Disease - CAD - BROTHER, Other - BLADDER CANCER - FATHER - Social History Alcohol Use: None Alcohol Amount: 12 WINE/SCOTCH MONTH Hx Substance Use: No Substance Use Type: Reports: None Hx Tobacco Use: Yes Smoking Status (MU): Light Every Day Tobacco Smoker Type: Cigarettes Amount Used/How Often: 1/2 PPD FOR 50 YRS Length of Time of Smoking/Using Tobacco: 50 YRS Have You Smoked in the Last Year: Yes Review of Systems Negative: Fever Positive: other - PICC line removal All Other Systems Reviewed And Are Negative: Yes Physical Exam Triage Information Reviewed: Yes Vital Signs On Initial Exam: Initial Vitals Temp Pulse Resp BP Pulse Ox 97.6 F 76 20 124/56 98 02/03/17 21:10 02/03/17 21:10 02/03/17 21:10 02/03/17 21:10 02/03/17 21:10 Vital Signs Reviewed: Yes Appearance: Positive: Well-Appearing - anxious Skin: Positive: Warm Head/Face: Positive: Normal Head/Face Inspection Eyes: Positive: JOSTIN ENT: Positive: Hearing grossly normal Neck: Positive: Supple Respiratory/Lung Sounds: Positive: Clear to Auscultation, Breath Sounds Present Cardiovascular: Positive: RRR Abdomen Description: Positive: Nontender, Soft Bowel Sounds: Positive: Present Musculoskeletal: Positive: Strength/ROM Intact Neurological: Positive: Alert, Oriented to Person Place, Time Psychiatric: Positive: Anxious Diagnostics - Vital Signs Vital Signs Temp Pulse Resp BP Pulse Ox 02/03/17 22:38 97.3 F 67 16 147/60 99 02/03/17 21:10 97.6 F 76 20 124/56 98 - Laboratory Result Diagrams: 02/04/17 01:25 02/04/17 01:25 Lab Statement: Any lab studies that have been ordered have been reviewed, and results considered in the medical decision making process. Re-Evaluation - Re-Evaluation First Eval Comment: after discussion with Dr Singh it was recommended to give pt dose of zosyn and vanco in ED pt then to be d/c home with PICC to be replaced tomorrow Complex Multi-Symp Course/Dx Assessment/Plan: Pt is a 71 y/o M who presents to ED after accidentally removing /losing his PICC line this morning. Associated pain is currently mild, ranked 2/ 10. Reports that he consulted with Dr. Singh who advised that he come to [facility] ED where an IV could be put in place. Per pt, he was told this would allow him to receive IV Abx for the next 48 hours as an outpatient, with a new PICC line put in place in 2 days. Discussed care of pt with Dr. Singh, making him aware of the pt. In the ED course, the pt received Vancomycin and Zosyn. He will be D/C to home with Dx of osteomyelitis and a follow up with Dr. Singh. He understands and agrees. Patient's medications reviewed this visit. - Diagnoses Provider Diagnoses: Osteomyelitis - Physician Notifications Discussed Care Of Patient With: Enrique Singh Time Discussed With Above Provider: 00:43 Instructed by Provider To: Other - Made him aware of the pt, discussing the case. Discharge - Discharge Plan Condition: Stable Disposition: HOME Patient Education Materials: Osteomyelitis (ED) Referrals: Enrique Singh MD [Medical Doctor] - 3 Days The documentation as recorded by the Shante marin Rebecca accurately reflects the service I personally performed and the decisions made by me, Matthew Vega MD.
[2017-02-04 06:21] VITALS: BP 152/57
== END 2017-02-04 06:21 | disposition home or self-care (01) ==
LOC: ED 21:08
DX: M86.9 Osteomyelitis, unspecified (principal)
CPT/HCPCS: 36415; 80048; 85025; 96365; 99283; J2543; J3370

== ENCOUNTER 2017-08-25 13:30 | Emergency (ER) | payer MEDICARE ==
[2017-08-25 13:51] VITALS: BP 191/88
--- NOTE | 2017-08-25 15:10 | UC ---
Dizzy HPI HPI Summary: States he woke up and stood up when he felt he had imbalance during the first several steps for several seconds. Denies falling, states he felt he was veering more to his left. He has previous history of BPPV but denies similarities. 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 partial thyroidectomy benign,. cardiac stents AT [facility]- REPORT IN OTHER FACILTY REPORTS ( [facility]/CM) - Family History Known Family History: Positive: None, Cardiac Disease - CAD - BROTHER, Other - BLADDER CANCER - FATHER - Social History Alcohol Use: None Alcohol Amount: 12 WINE/SCOTCH MONTH Substance Use Type: None Smoking Status (MU): Light Every Day Tobacco Smoker Type: Cigarettes Amount Used/How Often: 1/2 PPD FOR 50 YRS Length of Time of Smoking/Using Tobacco: 50 YRS Have You Smoked in the Last Year: Yes When Did the Patient Quit Smoking/Using Tobacco: August 2013 - Immunization History Most Recent Influenza Vaccination: 04/2013 Most Recent Tetanus Shot: WITHIN PAST 10 YRS Most Recent Pneumonia Vaccination: NONE Review of Systems Constitutional: Negative ENT: Nasal Discharge Respiratory: Negative Cardiovascular: Negative Gastrointestinal: Negative Genitourinary: Negative All Other Systems Reviewed And Are Negative: Yes Physical Exam Triage Information Reviewed: Yes Appearance: Well-Appearing, No Pain Distress Vital Signs: Initial Vital Signs Temp 97.2 F 08/25/17 13:48 Pulse 51 08/25/17 13:48 Resp 16 08/25/17 13:48 BP 191/88 08/25/17 13:48 Pulse Ox 100 08/25/17 13:48 Vital Signs Reviewed: Yes Eye Exam: Normal ENT Exam: Normal Dental Exam: Normal Neck exam: Normal Respiratory Exam: Normal Cardiovascular Exam: Normal Abdominal Exam: Normal Bowel Sounds: Positive: Present Musculoskeletal Exam: Normal Musculoskeletal: Positive: Strength Intact, ROM Intact, No Edema Neurological Exam: Other - romberg negative, CN 2-12 grossly intact, tiptoe/ heel walk wnl Neurological: Positive: Alert, Muscle Tone Normal Psychological: Positive: Normal Response To Family, Age Appropriate Behavior Skin Exam: Normal Dizzy Course/Dx - Differential Dx/Diagnosis Provider Diagnoses: Dizziness. Orthostatic hypotension Discharge - Discharge Plan Condition: Stable Disposition: HOME Patient Education Materials: Dizziness (ED), Lightheadedness (ED) Referrals: Jessica Palma MD [Primary Care Provider] -
== END 2017-08-25 15:20 | disposition home or self-care (01) ==
LOC: UCEAST 13:30
DX: R42 Dizziness and giddiness (principal); I95.1 Orthostatic hypotension; R00.1 Bradycardia, unspecified; M83.8 Other adult osteomalacia; E78.5 Hyperlipidemia, unspecified; I11.9 Hypertensive heart disease without heart failure; Z85.818 Personal history of malignant neoplasm of other sites of lip, oral cavity, and pharynx; Z85.038 Personal history of other malignant neoplasm of large intestine; E89.0 Postprocedural hypothyroidism; Z95.5 Presence of coronary angioplasty implant and graft; Z88.1 Allergy status to other antibiotic agents
CPT/HCPCS: 87502; 93005; 99211; G0463

== ENCOUNTER 2018-11-03 10:24 | Inpatient (IN) | payer MEDICARE ==
--- NOTE | 2018-11-03 10:46 | ED ---
Shortness of Breath - HPI Summary HPI Summary: This patient is a 73 year old M presenting to [facility] accompanied by a male with a chief complaint of worsening SOB since last night. The patient rates the pain 4/10 in severity. Patient reports CP and back pain. The patient had some lung fluid drained, which temporarily helped his symptoms, but they came back. He last had CP today, he had 3 nitros, and the pain has not gone away. He has a broken jaw because of radiation. PMHX cardiac problems, HTN. No PMHx diabetes, blood clots in legs or lungs. RX baby aspirin, Metoprolol. Vitals in the room: HR 69 bpm, BP 139/99. - History of Current Complaint Chief Complaint: EDShortnessOfBreath Time Seen by Provider: 11/03/18 10:40 Hx Obtained From: Patient Onset/Duration: Sudden Onset, Lasting Days Dyspnea At: Rest Associated Signs & Symptoms: Chest Pain Unrelated to Cough - Allergy/Home Medications Allergies/Adverse Reactions: Allergies Allergy/AdvReac Type Severity Reaction Status Date / Time cephalexin [From Keflex] Allergy Rash Verified 11/03/18 10:53 ciprofloxacin [From Cipro] Allergy Rash Verified 11/03/18 10:53 oxaprozin [From Daypro] Allergy Rash Verified 11/03/18 10:53 PMH/Surg Hx/FS Hx/Imm Hx Endocrine/Hematology History: Denies: Hx Diabetes, Hx Systemic Lupus Erythematosus Cardiovascular History: Reports: Hx Angina - not currently, Hx Hypercholesterolemia, Hx Hypertension, Hx Valvular Heart Disease, Other Cardiovascular Problems/Disorders - cardiac stents Denies: Hx Congestive Heart Failure, Hx Pacemaker/ICD Respiratory History: Reports: Hx Sleep Apnea, Other Respiratory Problems/ Disorders Denies: Hx Asthma GI History: Reports: Hx Hiatal Hernia, Hx Jaundice, Other GI Disorders - ,hx constipation History: Reports: Hx Renal Disease - VERY LOW GFR/ RENAL INSUFFIENCEY, Other Problems/Disorders - RECENT BLOOD IN URINE Denies: Hx Dialysis Musculoskeletal History: Denies: Hx Rheumatoid Arthritis Sensory History: Reports: Hx Contacts or Glasses - GLASSES Denies: Hx Cataracts, Hx Glaucoma, Hx Hearing Aid Opthamlomology History: Reports: Hx Contacts or Glasses - GLASSES Denies: Hx Cataracts, Hx Glaucoma Psychiatric History: Denies: Hx Panic Disorder - Cancer History Cancer Type, Location and Year: colon ca -dr caban pt. LYMPH NODE - W/ CHEMO & RADIATION Hx Chemotherapy: Yes Hx Radiation Therapy: Yes - Surgical History Surgery Procedure, Year, and Place: colon cancer dx 8 yrs prior with a partial bowel resection,. partial thyroidectomy benign,. cardiac stents AT [facility]- REPORT IN OTHER FACILTY REPORTS ( [id number]) Hx Anesthesia Reactions: No Infectious Disease History: No Infectious Disease History: Denies: Hx Clostridium Difficile, Hx Hepatitis, Hx Human Immunodeficiency Virus (HIV), Hx of Known/Suspected MRSA, Hx Shingles, Hx Tuberculosis, Hx Known/ Suspected VRE, Hx Known/Suspected VRSA, History Other Infectious Disease, Traveled Outside the [place] in Last 30 Days - Family History Known Family History: Positive: Cardiac Disease - CAD - BROTHER, Other - BLADDER CANCER - FATHER - Social History Alcohol Use: None Alcohol Amount: 12 WINE/SCOTCH MONTH Hx Substance Use: No Substance Use Type: Reports: None Hx Tobacco Use: Yes Smoking Status (MU): Light Every Day Tobacco Smoker Type: Cigarettes Amount Used/How Often: 1/2 PPD FOR 50 YRS Length of Time of Smoking/Using Tobacco: 50 YRS Have You Smoked in the Last Year: Yes Review of Systems Positive: Chest Pain Positive: Shortness Of Breath Positive: Myalgia - back All Other Systems Reviewed And Are Negative: Yes Physical Exam - Summary Physical Exam Summary: GENERAL: Patient is a well-developed and nourished male who is lying comfortable in the stretcher. Patient is not in any acute respiratory distress. HEAD AND FACE: Normocephalic EYES: PERRLA, EOMI x 2. EARS: Hearing grossly intact. MOUTH: Oropharynx within normal limits. NECK: Supple, trachea is midline, no adenopathy, no JVD, no carotid bruit. CHEST: Symmetric, no tenderness at palpation LUNGS: Clear to auscultation bilaterally. Crackles present. CVS: Regular rate and rhythm, S1 and S2 present, no murmurs or gallops appreciated. ABDOMEN: Soft, non-tender. Bowel sounds are normal. No abdominal abnormal pulsations. EXTREMITIES: Full ROM in all major joints, no edema, no cyanosis or clubbing. NEURO: Alert and oriented x 3. No acute neurological deficits. Speech is normal and follows commands. SKIN: Dry and warm Triage Information Reviewed: Yes Vital Signs On Initial Exam: Initial Vitals Temp Pulse Resp BP Pulse Ox 97.5 F 73 22 139/99 97 11/03/18 10:36 11/03/18 10:36 11/03/18 10:36 11/03/18 10:36 11/03/18 10:36 Vital Signs Reviewed: Yes Diagnostics - Vital Signs Vital Signs Temp Pulse Resp BP Pulse Ox 11/03/18 10:36 97.5 F 73 22 139/99 97 - Laboratory Result Diagrams: 11/03/18 10:53 11/03/18 10:53 Lab Statement: Any lab studies that have been ordered have been reviewed, and results considered in the medical decision making process. - Radiology CXR Radiology Interpretation Completed By: Radiologist Summary of Radiographic Findings: 1. MODERATE SIZE RIGHT PLEURAL EFFUSION. 2. COPD. ED physician has reviewed this report - EKG 10:29 Cardiac Rate: NL - 76 bpm EKG Rhythm: Sinus Rhythm Ectopy: PVCs EKG Comparison: No Significant Change - 08/25/17 Summary of EKG Findings: Ischemic changes in inferior leads, ventricular bigeminy 10:46 Cardiac Rate: NL - 65 bpm EKG Rhythm: Sinus Rhythm Ectopy: PVCs Summary of EKG Findings: Ischemic changes in inferior leads, ventricular bigeminy Course/Dx - Course Course Of Treatment: This patient is a 73 year old M presenting to [facility] accompanied by a male with a chief complaint of worsening SOB since last night. The patient rates the pain 4/10 in severity. Patient reports CP and back pain. An EKG reveals NSR 76 bpm, ventricular bigeminy, PVCs, similar to 08/25/17. Second EKG reveals NSR 65 bpm, ventricular bigeminy, PVCs. CXR reveals, per radiologist, 1. MODERATE SIZE RIGHT PLEURAL EFFUSION. 2. COPD. ED physician has reviewed this radiology report. Bloodwork/UA obtained. In the ED course the patient was given Furosemide. We discussed patient care with Dr. Awad, hospitalist, and they recommended admission. - Diagnoses Provider Diagnoses: SOB (shortness of breath), Pleural effusion - Physician Notifications Discussed Care of Patient With: Luke Awad Time Discussed With Above Provider: 12:26 Instructed by Provider To: Admit As Inpatient - Critical Care Time Critical Care Time: 30-74 min Discharge - Sign-Out/Discharge Documenting (check all that apply): Patient Departure - admission Patient Received Moderate/Deep Sedation with Procedure: No - Discharge Plan Condition: Fair Disposition: ADMITTED TO [facility] Referrals: Jessica Palma MD [Primary Care Provider] - - Billing Disposition and Condition Condition: FAIR Disposition: Admitted to [facility] - Attestation Statements Document Initiated by Scribe: Yes Documenting Scribe: Sami Carlson Provider For Whom Scribe is Documenting (Include Credential): Henrique Johnston MD Scribe Attestation: Sami Collier, martínibed for Henrique Johnston MD on 11/03/18 at 1523. Scribe Documentation Reviewed: Yes Provider Attestation: The documentation as recorded by the Sami marin accurately reflects the service I personally performed and the decisions made by Henrique singleton MD Status of Scribe Document: Viewed
[2018-11-03 11:02] LABS: ABS Basophils 0 10^3/ul (0-0.2); ABS Eosinophils 0 10^3/ul (0-0.6); ABS Lymphocytes 0.6 10^3/ul (1.0-4.8); ABS Monocytes 0.4 10^3/ul (0-0.8); ABS Neutrophils 3.7 10^3/ul (1.5-7.7); ABS Nucleated RBC 0 10^3/ul; Hematocrit 37 % (36-46); Hemoglobin 12.1 g/dL (14.0-18.0); Lymphocyte % 12.9 %; Mean Corpuscular HGB Conc 33 g/dL (31-36); Mean Corpuscular Hemoglobin 30 pg (27-31); Mean Corpuscular Volume 91 fL (80-94); Mean Platelet Volume 9.6 fL (7.4-10.4); Nucleated Red Blood Cells % 0; Platelet Count 151 10^3/uL (150-450); Red Cell Distribution Width 15 % (10.5-15); White Blood Count 4.8 10^3/uL (3.5-10.8)
[2018-11-03 11:14] LABS: Activated Partial Thrombo Time 33.1 seconds (26.0-36.3); INR 1.1 (0.77-1.02)
[2018-11-03 11:19] LABS: Albumin 3.6 g/dL (3.2-5.2); BUN/Creatinine Ratio 18.5 (8-20); Calcium 8.8 mg/dL (8.6-10.3); EGFR African American 48.6 (>60); EGFR Non-African American 40.1 (>60); Globulin 3.5 g/dL (2-4); Potassium 4.8 mmol/L (3.5-5.0); Total Bilirubin 0.6 mg/dL (0.2-1.0); Total Protein 7.1 g/dL (6.4-8.9)
[2018-11-03 11:21] LABS: Troponin I 0.01 ng/mL (<0.04)
[2018-11-03] MEDS ORDERED: Furosemide IV* 10 MG/ML VIAL (40 MG) IV SLOW PU ONE (11:57)
[2018-11-03 14:12] LABS: Troponin I 0.01 ng/mL (<0.04)
[2018-11-03] MEDS ORDERED: Nitroglycerin TAB 0.4 MG* 0.4 MG TAB SL PRN (14:12)
[2018-11-03] MEDS: Enoxaparin(*) 80 MG/0.8 ML SYR SUBCUT SCH (17:55)
[2018-11-03] MEDS ORDERED: Albuterol/Ipratropium NEB.SOL* Albuterol 2.5 MG/Ipratropium 0.5 MG 3 ML INH SCH (19:00)
[2018-11-03] MEDS ORDERED: Albuterol/Ipratropium NEB.SOL* Albuterol 2.5 MG/Ipratropium 0.5 MG 3 ML INH PRN (19:35)
[2018-11-03] MEDS ORDERED: Furosemide IV* 10 MG/ML 2 ML VIAL (20 MG) IV ONE (20:00)
[2018-11-03] MEDS: Metoprolol Tartrate TAB* 50 mg PO SCH (20:41)
[2018-11-03] MEDS: Amoxicillin PO (*) 500 MG CAP PO SCH (20:41)
--- NOTE | 2018-11-03 21:01 | HP ---
HISTORY AND PHYSICAL: DATE OF ADMISSION: 11/03/18 PROVIDER: Noe Diaz NP. ATTENDING PHYSICIAN: Dr. Awad * (report dictated by Noe Diaz NP). PRIMARY CARE PROVIDER: Dr. Jessica Palma and Dr. Aly who is covering for Dr. Palma while she is on maternity leave. CALENDER LET OFF HELPER: Dr. Aguilar. CHIEF COMPLAINT: Shortness of breath. HISTORY OF PRESENT ILLNESS: Mr. Henning is a 73-year-old male with a past medical history of current tobacco abuse; chronic kidney disease stage 3; history of head and neck cancer, status post surgery, radiation, chemo, and history of right-sided pleural effusion with a history of thoracentesis in 2016 and again on 10/22/18, in which both had negative pathology, who now presents with shortness of breath, found to have a moderate right-sided pleural effusion. The patient reports he went to see Dr. Aly at the end of September for worsening shortness of breath. She sent him for a CAT scan on 10/03/18, which showed a moderate right-sided pleural effusion with atelectasis in the right middle lobe and right lower lobe. The patient was then set up for thoracentesis on 10/22/[address] Nguyen in which 1.65 L of straw color fluid was aspirated in which the pathology showed no infectious or malignant cells. The patient then reports he felt much better for about 4 or 5 days and reports his shortness of breath slowly returned, stating that it has been worsening over the past 2 days with last night being the worst. He does report yesterday , during the day, he felt well enough to go out dinner with friends and when he returned home last evening, he was unable to lie flat in his bed and slept in the chair sitting up all night, stating he barely slept due to feeling shortness of breath. He then came to the emergency department this morning for further evaluation. Again, the chest x-ray is showing a moderate right-sided pleural effusion. In the ER, he was given 40 mg of Lasix IV. On evaluation of the patient in the emergency department, he is found to be sitting up comfortably, alert and oriented x3, visiting with his son. He states that his shortness of breath has greatly improved and feels much better. He reports that he did have chest pain this morning at home, which was midsternal, radiating straight through to his back. He states he took 3 nitro, which did relieve the pressure a little bit but states did return pretty quickly. He currently denies any chest pressure. His first 2 troponins in the ER are 0.01. He is noted to have intermittent bigeminy in the emergency department. Currently, the patient is asymptomatic. The patient does report he has had cough with some sputum production as well as he does report some wheezing. He states he takes no mediations at home for his COPD and does not have nebulizer or inhalers. He continues to smoke approximately 6 cigarettes a day. He denies any fevers or chills, but does report he has had some night sweats for the past 3 weeks, waking up "mildly damp." He denies any history of pulmonary embolism or DVT. Denies history of GI bleed. I discussed with the patient placing him on full strength Lovenox if his stool for occult blood returns negative until he can undergo a V/Q scan tomorrow. The patient is in agreement. PAST MEDICAL HISTORY: 1. Hypertension. 2. Coronary artery disease. 3. History of colon cancer in 2002. 4. 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 5. History of mitral regurgitation. 6. 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 7. Sleep apnea, is noncompliant with CPAP and follows with Dr. Aguilar. 8. Substernal goiter. 9. Cholelithiasis. 10. BPH. 11. History of fractured jaw secondary to radiation, complicated by osteomyelitis in which he is on suppressive amoxicillin and followed with Dr. Garza. 12. Chronic kidney disease stage 3. HOME MEDICATIONS: 1. Nitroglycerin 0.4 mg sublingual q.5 minutes p.r.n. 2. Metoprolol tartrate 50 mg p.o. b.i.d. 3. Avodart 0.5 mg p.o. daily. 4. Aspirin 81 mg p.o. daily. 5. Amoxicillin 500 mg p.o. b.i.d. ALLERGIES: CEPHALEXIN, CIPROFLOXACIN, OXAPROZIN. FAMILY HISTORY: Reviewed and noncontributory. 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 He lives at home with his . He has 3 children. He has been smoking tobacco since age 14 and currently smokes approximately 6 cigarettes a day. He reports occasional alcohol use. Denies excessive use. The patient has a full code. REVIEW OF SYSTEMS: A 14-point review of systems was performed. All the pertinent positives and negatives are mentioned in the history of present illness. Otherwise are negative. PHYSICAL EXAMINATION GENERAL APPEARANCE: Well-developed, 73-year-old male, sitting up in the emergency department stretcher, alert and oriented x3, in no acute distress. VITAL SIGNS: Temperature 97.8, heart rate 67, respirations 20, O2 sat 96% on room air, blood pressure 146/67. HEENT: Head is normocephalic, atraumatic. Pupils are equal and reactive to light. Oropharynx is clear. Moist mucous membranes. NECK: Supple. No JVD. LUNGS: Right middle lower lung are diminished, otherwise clear. No rhonchi, wheeze, rales noted. CARDIAC: S1, S2, regular rate and rhythm, no murmur appreciated. ABDOMEN: Soft, nontender, nondistended. No bowel sounds throughout. EXTREMITIES: No clubbing, cyanosis, or edema noted. NEUROLOGIC: Alert and oriented x3. Strength is 5/5 throughout. Moves all extremities. No focal deficits noted. LABORATORY DATA/DIAGNOSTIC STUDIES: Sodium 136, potassium 4.8, chloride 105, carbon dioxide 27, anion gap 4, BUN 31, creatinine 1.68, glucose 174, hemoglobin A1c 5.7, lactic acid 1.1, calcium 8.8, magnesium 2.0. Total bilirubin 0.60, AST 18, ALT 16, alkaline phosphatase 76. Troponin 0.01, second troponin 0.01, BNP 565. Total protein 7.1, albumin 3.6, B12 470. WBCs 4.8, RBC 4.00, HGB 12.1, HCT 37, MCV 91, MCH 30, MCHC 33, RDW 15, platelet count 151, INR 1.10. EKG, sinus rhythm with a rate of 65, ventricular bigeminy noted. Chest x-ray, impression: 1. Moderate size right pleural effusion. 2. COPD. ASSESSMENT AND PLAN: Mr. Henning is a 73-year-old male with a past medial history of current tobacco abuse, chronic kidney disease stage 3, previous history of head and neck cancer, chronic obstructive pulmonary disease, and history of right pleural effusion, recently undergoing thoracentesis on 10/22/18 , who presents today for worsening shortness of breath. 1. Shortness of breath. The patient's chest x-ray is showing a moderate size pleural effusion. He did respond to 40 mg of IV Lasix given in the emergency department. I will give him another 20 this afternoon. I will order a repeat chest x-ray in the morning. The patient is feeling much better at this time. Pathology of the last 2 thoracenteses have been negative for malignancy or infection. He does follow with Dr. Aguilar as an outpatient. I have spoken with her and she will see the patient tomorrow. I do not think this is a chronic obstructive pulmonary disease exacerbation. The patient does have some sputum, however, appears it is not much above his baseline. On the differential is pulmonary embolism. Due to his chronic kidney disease he cannot undergo a CTA of the chest, and therefore, I have ordered a V/Q scan for tomorrow. I have done rectal exam and have sent stool for occult blood and this is negative. I will place him on Lovenox at 1 mg/kg q.12 hours and if the V/Q scan is negative, this can be discontinued. In regard to the patient's chronic obstructive pulmonary disease, he is currently not on any home medications and should be sent home on ipratropium; however, I will defer this to Dr. Aguilar who may have a specific regimen she would like to place him on due to his COPD. 2. Chest pain. The patient has not had any further chest pain since being in the emergency department. His 2 initial troponins in the emergency department are 0.01. I suspect this is in the setting of his acute shortness of breath. We will monitor on telemetry and will trend the third troponin. The patient does have bigeminy on his telemonitoring, however, at this time, he is asymptomatic and we will continue to monitor at this time. 3. Benign prostatic hypertrophy. Continue Avodart. 4. History of osteomyelitis in the jaw. Continue suppressive therapy with amoxicillin 500 mg b.i.d. 5. History of coronary artery disease. Continue beta owen and aspirin. 6. Hyperlipidemia. Continue statin. 7. DVT prophylaxis: Currently he is on heparin subcu until the results of the stool for occult blood. If this is negative again, I will switch him to Lovenox b.i.d. until we get the V/Q scan results. 8. Code status: Full code. 9. Hospital status: Observation. TIME SPENT: Approximately 60 minutes was spent on this admission. NOE DIAZ, NET MAKING SUPERVISOR [id number]/CPS #: [id number] JANEL
[2018-11-04] MEDS: Enoxaparin(*) 80 MG/0.8 ML SYR SUBCUT SCH (05:52)
[2018-11-04 06:49] LABS: ABS Basophils 0.1 10^3/ul (0-0.2); ABS Eosinophils 0.1 10^3/ul (0-0.6); ABS Lymphocytes 1.1 10^3/ul (1.0-4.8); ABS Monocytes 0.6 10^3/ul (0-0.8); ABS Neutrophils 4.5 10^3/ul (1.5-7.7); ABS Nucleated RBC 0 10^3/ul; Eosinophil % 1.2 %; Hematocrit 37 % (36-46); Hemoglobin 12.5 g/dL (14.0-18.0); Lymphocyte % 17.4 %; Mean Corpuscular HGB Conc 34 g/dL (31-36); Mean Corpuscular Hemoglobin 30 pg (27-31); Mean Corpuscular Volume 90 fL (80-94); Mean Platelet Volume 10.1 fL (7.4-10.4); Nucleated Red Blood Cells % 0; Platelet Count 166 10^3/uL (150-450); Red Blood Count 4.12 10^6 /uL (4.18-5.48); Red Cell Distribution Width 15 % (10.5-15); White Blood Count 6.4 10^3/uL (3.5-10.8)
[2018-11-04 07:06] LABS: Calcium 9.1 mg/dL (8.6-10.3); Potassium 4.2 mmol/L (3.5-5.0)
[2018-11-04] MEDS: Metoprolol Tartrate TAB* 50 mg PO SCH ×2 (09:59→20:13)
[2018-11-04] MEDS: Aspirin EC TAB* 81 MG TAB.EC PO SCH (09:59)
[2018-11-04] MEDS: Finasteride TAB* 5 MG PO SCH (09:59)
[2018-11-04] MEDS: Amoxicillin PO (*) 500 MG CAP PO SCH ×2 (09:59→20:13)
--- NOTE | 2018-11-04 13:06 | ECHO ---
Patient: JANINE LAL [facility] Rec#: [id number] : 1945 Date: 11/04/2018 Age: 73y Height: 178 cm / 70.1 in Weight: 78 kg / 171.9 lbs Sex: M BSA: 1.96 Room#: 451 Admit Date#: 11/03/2018 Type: Inpatient Referring: NOE JIANG T BURCH Reading: Andrew Klein DO Environmental Inspector: Renetta Bean,RDCS,RDMS CC: Jessica Palma MD Transthoracic Echocardiogram Indication: CHF BP: 114/41 HR: 76 Rhythm: NSR with PVCs Findings History: Smoker, COPD, CKD, HTN, CAD, pleural effusion, thoracentesis. Technical Comments: The study is technically limited due to poor parasternal windows. The study is technically limited due to the patient's history of COPD. Left Ventricle: The left ventricular chamber size is normal. Mild concentric left ventricular hypertrophy is observed. Global left ventricular wall motion and contractility are within normal limits. There is normal left ventricular systolic function. The estimated ejection fraction is greater than 65%. The assessment of diastolic function is non-diagnostic. Left Atrium: The left atrium is severely dilated. Right Ventricle: The right ventricular chamber size and systolic function are within normal limits. Right Atrium: The right atrial cavity size is normal. Aortic Valve: The aortic valve leaflets are mildly thickened. There is mild aortic regurgitation. There is mild aortic stenosis. The mean gradient of the aortic valve is 15 mmHg. The aortic valve area, by VTI's, is calculated at 1.3 cm2. Mitral Valve: The mitral valve leaflets are mildly thickened. There is mild to moderate mitral regurgitation. The mitral regurgitant jet is eccentric. There is no evidence of mitral stenosis. Tricuspid Valve: The tricuspid valve leaflets are normal. There is mild tricuspid regurgitation. No pulmonary hypertension is noted. Pulmonic Valve: The pulmonic valve appears normal. Pericardium: There is no significant pericardial effusion., minimal amount of excess pericardial fluid noted adjacent to right atrium Aorta: The aortic root appears normal. The aortic arch is not well visualized. Pulmonary Artery: The main pulmonary artery is not well visualized. Venous: The inferior vena cava appears normal in size. There is less than 50% respiratory change in the inferior vena cava dimension. Conclusions The left ventricular chamber size is normal. Mild concentric left ventricular hypertrophy is observed. Global left ventricular wall motion and contractility are within normal limits. There is normal left ventricular systolic function. The estimated ejection fraction is 65-70% The left atrium is severely dilated. The right ventricular chamber size and systolic function are within normal limits. There is mild aortic stenosis. There is mild to moderate mitral regurgitation that is eccentric and could be underestimated in severity (could be more severe). There is no significant pericardial effusion., minimal amount of excess pericardial fluid noted adjacent to right atrium Compared to prior echo from 08/2017, no significant changes noted Measurements Name Value Normal Range RVDdMajor (2D) 2.4 cm (2.2 - 4.4) RAd ISD 4CH 4.6 cm (3.4 - 4.9) RA (A4C)W 4 cm (2.9 - 4.6) Aortic Annulus 1.8 cm (1.4 - 2.6) Ao root diameter (2D) 2.7 cm (2.1 - 3.5) Ascending Ao 2.7 cm (2.1 - 3.4) LA dimension (AP) 2D 5.4 cm (2.3 - 3.8) LAd ISD 4CH 5.2 cm (2.9 - 5.3) LA ISD 4CH W 4.9 cm (2.5 - 4.5) Name Value Normal Range LA ESV BP (A/L) index 52 ml/m2 - Name Value Normal Range MV E-wave Vmax 0.9 m/sec - MV deceleration time 238 msec - MV A-wave Vmax 0.7 m/sec - MV E:A ratio 1.3 ratio - LV septal e' Vmax 0.08 m/sec - LV lateral e' Vmax 0.1 m/sec - LV E:e' septal ratio 11 ratio - LV E:e' lateral ratio 9 ratio - Name Value Normal Range AV Vmax 2.7 m/sec - AV VTI 51 cm - AV peak gradient 29 mmHg - AV mean gradient 15 mmHg - LVOT diameter 1.9 cm - LVOT Vmax 1.5 m/sec - LVOT VTI 24 cm - LVOT peak gradient 9 mmHg - LVOT mean gradient 3 mmHg - DOI (VTI) 0.5 ratio - MINDA (continuity Vmax) 1.6 cm2 - MINDA (continuity VTI) 1.3 cm2 - AR PHT 397 msec - Name Value Normal Range MR Vmax 5.7 m/sec - MR VTI 178 cm - Name Value Normal Range TR Vmax 2.4 m/sec - TR peak gradient 23 mmHg - RAP 3 mmHg - RVSP 26 mmHg - IVC diameter 1.8 cm - Name Value Normal Range PV Vmax 0.8 m/sec - PV peak gradient 2.65 mmHg -
[2018-11-04] MEDS ORDERED: NS 0.9% 1000 ML** 1,000 ML IV ONE (14:52)
--- NOTE | 2018-11-04 15:09 | PN ---
Subjective Date of Service: 11/04/18 Interval History: Patient reports shortness of breath which started at approx 5:30 AM today. He didn't alert nursing staff until approx 7 AM. During this time he reports he was burping frequently and experiencing chest pain and back pain. He additionally reports diaphoresis overnight. At time of evaluation he is without this pain and has no respiratory complaints. Denies fever/chills, abd pain, nausea, vomiting, tachycardia, and palpitations. Objective Active Medications: Albuterol/Ipratropium (Duoneb (Albuterol 2.5 Mg/Ipratropium 0.5 Mg)) 1 neb INH Q2H PRN PRN Reason: SOB/WHEEZING Amoxicillin (Amoxicillin Po (*)) 500 mg PO BID [facility] Last Admin: 11/04/18 09:59 Dose: 500 mg Aspirin (Aspirin Ec Tab*) 81 mg PO DAILY [facility] Last Admin: 11/04/18 09:59 Dose: 81 mg Enoxaparin Sodium (Lovenox(*)) 75 mg SUBCUT Q12H [facility] Last Admin: 11/04/18 05:52 Dose: 75 mg Finasteride (Proscar Tab*) 5 mg PO DAILY [facility]; Protocol Last Admin: 11/04/18 09:59 Dose: 5 mg Sodium Chloride (Ns 0.9% 1000 Ml) 1,000 mls @ 1,000 mls/hr IV .PER RATE ONE Stop: 11/04/18 15:51 Metoprolol Tartrate (Lopressor Tab*) 50 mg PO BID [facility] Last Admin: 11/04/18 09:59 Dose: 50 mg Nitroglycerin (Nitroglycerin Tab 0.4 Mg*) 0.4 mg SL Q5M PRN PRN Reason: PAIN - CHEST Vital Signs - 8 hr 11/04/18 11/04/18 11/04/18 07:24 07:51 09:04 Temperature 97.4 F Pulse Rate 86 40 Respiratory 16 16 Rate Blood Pressure 152/57 119/55 (mmHg) O2 Sat by Pulse 94 90 Oximetry 11/04/18 11/04/18 11/04/18 09:22 11:51 12:18 Temperature 97.4 F Pulse Rate 42 67 Respiratory 18 Rate Blood Pressure 128/68 131/43 (mmHg) O2 Sat by Pulse 97 Oximetry Oxygen Devices in Use Now: None Appearance: Elderly male, appears younger than stated age, laying upright in hospital bed appearing comfortable, appearing in NAD; daughter at bedside Eyes: No Scleral Icterus, PERRLA Ears/Nose/Mouth/Throat: Mucous Membranes Moist Neck: NL Appearance and Movements; NL JVP, Trachea Midline Respiratory: Symmetrical Chest Expansion and Respiratory Effort, - - diminished breath sounds in right lower lung field, otherwise clear to auscultation Cardiovascular: NL Sounds; No Murmurs; No JVD, - - irregular rhythm, regular rate Abdominal: - - abdomen soft, nontender, nondistesnded Extremities: No Edema, No Clubbing, Cyanosis Skin: No Rash or Ulcers, - - skin is warm, dry, intact Neurological: Alert and Oriented x 3, NL Muscle Strength and Tone Result Diagrams: 11/04/18 06:33 11/04/18 06:33 Microbiology and Other Data: Microbiology 11/03/18 16:00 Stool Occult Blood (SUJATHA) - Final Stool Assess/Plan/Problems-Billing Assessment: 73 yo male with PMHx significant for CAD, CKD, COPD, hx of head/neck CA and hx of colon CA presents with shortness of breath and found to have a right pleural effusion. Patient recently s/p right thoracentesis on 10/22/18 and found to be cytology negative. - Patient Problems (1) Recurrent right pleural effusion Code(s): J90 - PLEURAL EFFUSION, NOT ELSEWHERE CLASSIFIED SNOMED Code(s): 89262578 Comment: - recent thoracentesis of right pleural effusion on 10/22/18 demonstrated negative cytology, however no LDH/protein of serum so unable to determine if exudative vs transudative; pt does have hx of head/neck CA and colon CA - right pleural effusion has reaccumulated at admission CXR on 11/03/18 - CXR today with little change despite pt receiving IV lasix in ED - O2 saturation wnl, patient intermittently short of breath but asymptomatic at time of evaluation - Dr. Aguilar consulted, appreciate recommendations - holding lovenox for possible thoracentesis tomorrow - V/Q scan today with intermediate risk, CTA contraindicated due to CKD; ordered d-dimer. If positive, Dr. Aguilar recommends against starting heparin at this time (2) Bigeminy Code(s): I49.9 - CARDIAC ARRHYTHMIA, UNSPECIFIED SNOMED Code(s): 21466393 Comment: -mostly persistent bigeminal rhythm -electrolytes are within normal limits -likely due to right heart strain from pleural effusion -rate wnl; will continue to monitor and consider cardio consult (3) CAD (coronary artery disease) Code(s): I25.10 - ATHSCL HEART DISEASE OF [place] CORONARY ARTERY W/O ANG PCTRS SNOMED Code(s): 11951262 Comment: - s/p 3 stents - continue home ASA (4) COPD (chronic obstructive pulmonary disease) Code(s): J44.9 - CHRONIC OBSTRUCTIVE PULMONARY DISEASE, UNSPECIFIED SNOMED Code(s): 89297658 Comment: -it appears pt does not take any medications at home (5) CKD (chronic kidney disease) Code(s): N18.9 - CHRONIC KIDNEY DISEASE, UNSPECIFIED SNOMED Code(s): 524951165 Comment: -baseline Cr is ~1.5 -Cr today 1.76, likely due to receiving lasix in ED -1 L NS today and continue to monitor (6) HTN (hypertension) Code(s): I10 - ESSENTIAL (PRIMARY) HYPERTENSION SNOMED Code(s): 63636883 Comment: -normotensive since yesterday -continue home metoprolol (7) Osteomyelitis, jaw chronic Code(s): M27.2 - INFLAMMATORY CONDITIONS OF JAWS SNOMED Code(s): 70497710 Comment: - complication of head/neck CA XRT - follows with Dr. Garza, receives amoxicillin daily (8) Full code status Code(s): Z78.9 - OTHER SPECIFIED HEALTH STATUS SNOMED Code(s): 915239315 (9) DVT prophylaxis Code(s): SXU7356 - SNOMED Code(s): 276732708 Comment: -holding for thoracentesis tomorrow
--- NOTE | 2018-11-04 20:59 | CONS ---
PULMONARY CONSULTATION REPORT: DATE OF CONSULT: 11/04/18 CONSULTATION REQUESTED BY: GEMA Hazel REASON FOR CONSULTATION: Evaluation of pleural effusion. HISTORY OF PRESENT ILLNESS: The patient is a 73-year-old male, current smoker with history of COPD, obstructive sleep apnea, chronic kidney disease stage 3, head and neck cancer status post surgery, radiation, chemo and history of right pleural effusion in the past, underwent thoracentesis in 2015 with recurrence again, had thoracentesis in October 2018. Cytology is negative for malignancy. The patient presents for evaluation of worsening shortness of breath over the past few days prior to admission. He followed up with his primary care end of September for evaluation of shortness of breath. He was noted to have moderate pleural effusion on the right side, underwent thoracentesis on 10/22/18 with removal of 1.6 L of pleural fluid. Fluid showed increased protein suggestive of exudative effusion. Shortness of breath improved; however, has gotten worse few days prior to admission. The patient denies significant cough or sputum production. The patient reports having trouble lying flat because of the shortness of breath. The patient presented to the ED for further evaluation. The patient denied fevers or chills. He denied palpitations. He did have chest pain, was radiating to his back prior to presentation. The patient was seen and examined at bedside. The patient denies any other symptoms other than shortness of breath. The patient reports that shortness of breath is slightly improved after he had diuresis. He continues to smoke at home. He was noted to have negative troponins in the ED. Chest x-ray was done for further evaluation. I personally reviewed chest x-ray, evidence of moderate-sized right pleural effusion. The patient had V/Q scan today, which was negative for mismatches; however, it was indeterminate secondary to underlying pleural effusion. His echocardiogram showed [id number] mitral regurgitation, no pericardial effusion, EF of 65% to 70% with mild aortic stenosis. PAST MEDICAL HISTORY: 1. Hypertension. 2. Coronary artery disease. 3. Colon cancer in 2002. 4. Squamous cell cancer of left tonsil, treated with surgery, radiation and chemotherapy. 5. Mitral regurgitation. 6. COPD. 7. Sleep apnea, not compliant with CPAP. 8. Substernal goiter. 9. Cholelithiasis. 10. BPH. 11. Fractured jaw secondary to radiation, complicated by osteomyelitis, has been on suppressive amoxicillin. 12. Chronic kidney disease, stage III. MEDICATIONS: At home: 1. Nitroglycerin. 2. Metoprolol. 3. Avodart. 4. Aspirin. 5. Amoxicillin. ALLERGIES: CEPHALEXIN, CIPROFLOXACIN, OXAPROZIN. FAMILY HISTORY: Reviewed and noncontributory to current complaint. SOCIAL HISTORY: Continues to smoke, smokes about 6 cigarettes per day. No drug abuse. Occasional alcohol abuse. REVIEW OF SYSTEMS: A 14-point review of systems as per HPI. PHYSICAL EXAM: The patient is in no apparent distress. Vital Signs: Temperature 97.8, pulse 55 beats per minute, respiratory rate 22, O2 sat 96% on room air, blood pressure 114/45. HEENT: Pupils equal, reactive to light. Mucous membranes moist. Lungs: Diminished air entry at right base. No wheeze. Cardiovascular: S1, S2 present. Murmur present. Abdomen: Soft, nontender, nondistended. Bowel sounds present. Extremities: Normal range of motion. Neuro: Alert, awake, oriented x3. No focal deficits. Skin: No rash or bruises. Lymphatic: No palpable supraclavicular or cervical adenopathy. DIAGNOSTIC STUDIES/LAB DATA: WBC count 6.4, hemoglobin 12.5, hematocrit 37, platelet count 166. Sodium 137, potassium 4.2, chloride 102, bicarb 26, BUN 30 , creatinine 1.76. BNP elevated at 684. Chest x-ray as described above in HPI. IMPRESSION AND RECOMMENDATIONS: 73-year-old male, smoker with significant smoking history, with history of squamous cell carcinoma of head and neck, colon cancer, presents with recurrent pleural effusions and shortness of breath secondary to effusion. Pleural effusion was drained 2 weeks ago. Pathology negative for malignancy. He does have a history of mitral regurgitation, which could be contributing to pleural effusion given the right sided effusion. Given symptomatic effusion, would benefit from thoracentesis. Procedure was discussed in detail with pt, associated risks including risk for PTX was discussed. Pt agreeeable to procedure. He received anticoagulation today with Lovenox. We will hold the Lovenox and we will perform thoracentesis in the morning. He is not in any kind of distress at this time. He has been receiving diuresis. He is on empiric coverage with antibiotics for jaw osteomyelitis. Continue with nebs as needed. Thank you for allowing us to participate in the care of your patient. Will follow up with you. [id number]/[facility] #: [id number] JANEL
[2018-11-05 07:06] LABS: ABS Basophils 0 10^3/ul (0-0.2); ABS Eosinophils 0.1 10^3/ul (0-0.6); ABS Lymphocytes 0.8 10^3/ul (1.0-4.8); ABS Monocytes 0.6 10^3/ul (0-0.8); ABS Neutrophils 3.4 10^3/ul (1.5-7.7); ABS Nucleated RBC 0 10^3/ul; Eosinophil % 1.9 %; Hematocrit 34 % (36-46); Hemoglobin 11.5 g/dL (14.0-18.0); Lymphocyte % 17.2 %; Mean Corpuscular HGB Conc 34 g/dL (31-36); Mean Corpuscular Hemoglobin 30 pg (27-31); Mean Corpuscular Volume 90 fL (80-94); Mean Platelet Volume 10.1 fL (7.4-10.4); Nucleated Red Blood Cells % 0.2; Platelet Count 135 10^3/uL (150-450); Red Cell Distribution Width 15 % (10.5-15); White Blood Count 4.9 10^3/uL (3.5-10.8)
[2018-11-05 07:35] LABS: BUN/Creatinine Ratio 18.2 (8-20); Calcium 8.6 mg/dL (8.6-10.3); EGFR African American 47.9 (>60); EGFR Non-African American 39.6 (>60); Potassium 4.3 mmol/L (3.5-5.0); Total Protein 6.3 g/dL (6.4-8.9)
[2018-11-05] MEDS: Amoxicillin PO (*) 500 MG CAP PO SCH ×2 (07:59→21:19)
[2018-11-05] MEDS: Metoprolol Tartrate TAB* 50 mg PO SCH ×2 (08:00→21:19)
[2018-11-05] MEDS: Finasteride TAB* 5 MG PO SCH (08:00)
[2018-11-05] MEDS: Aspirin EC TAB* 81 MG TAB.EC PO SCH (08:00)
--- NOTE | 2018-11-05 09:22 | PN ---
Subjective Date of Service: 11/05/18 Interval History: Patient reports he felt well overnight, but around 7:30 AM felt shortness of breath suddenly that lasted for less than 5 minutes. During this time he experienced back pain, which is similar to what he reported yesterday. He otherwise is without chest pain and is feeling comfortable during evaluation. Denies abd pain, headache, nausea, vomiting, diarrhea. Objective Active Medications: Albuterol/Ipratropium (Duoneb (Albuterol 2.5 Mg/Ipratropium 0.5 Mg)) 1 neb INH Q2H PRN PRN Reason: SOB/WHEEZING Amoxicillin (Amoxicillin Po (*)) 500 mg PO BID [facility] Last Admin: 11/05/18 07:59 Dose: 500 mg Aspirin (Aspirin Ec Tab*) 81 mg PO DAILY [facility] Last Admin: 11/05/18 08:00 Dose: 81 mg Finasteride (Proscar Tab*) 5 mg PO DAILY [facility]; Protocol Last Admin: 11/05/18 08:00 Dose: 5 mg Metoprolol Tartrate (Lopressor Tab*) 50 mg PO BID [facility] Last Admin: 11/05/18 08:00 Dose: 50 mg Nitroglycerin (Nitroglycerin Tab 0.4 Mg*) 0.4 mg SL Q5M PRN PRN Reason: PAIN - CHEST Vital Signs - 8 hr 11/05/18 11/05/18 03:31 08:17 Temperature 97.4 F 97.6 F Pulse Rate 59 Respiratory 20 16 Rate Blood Pressure 119/73 142/67 (mmHg) O2 Sat by Pulse 95 94 Oximetry Oxygen Devices in Use Now: None Appearance: Thin, elderly man, appears younger than stated age, appearing in NAD Eyes: No Scleral Icterus, PERRLA Ears/Nose/Mouth/Throat: Mucous Membranes Moist Neck: - - neck is supple, without JVD Respiratory: Symmetrical Chest Expansion and Respiratory Effort, - - diminished breath sounds on right side, no crackes/rhonchi/wheezes Cardiovascular: - - regular rate, regular rhythm, grade I systolic murmur Abdominal: - - abdomen soft, nondistended, nontender Extremities: No Edema, No Clubbing, Cyanosis, - - neg calf tenderness Skin: No Rash or Ulcers, - - skin is warm, dry, intact Neurological: Alert and Oriented x 3, NL Muscle Strength and Tone Result Diagrams: 11/05/18 06:46 11/05/18 06:46 Microbiology and Other Data: Microbiology 11/03/18 16:00 Stool Occult Blood (SUJATHA) - Final Stool Assess/Plan/Problems-Billing Assessment: 73 yo male with PMHx significant for CAD, CKD, COPD, hx of head/neck CA and hx of colon CA presents with shortness of breath and found to have a right pleural effusion. Patient recently s/p right thoracentesis on 10/22/18 and found to be cytology negative. - Patient Problems (1) Recurrent right pleural effusion Code(s): J90 - PLEURAL EFFUSION, NOT ELSEWHERE CLASSIFIED SNOMED Code(s): 42845854 Comment: - recent thoracentesis of right pleural effusion on 10/22/18 demonstrated negative cytology, however no LDH/protein of serum so unable to determine if exudative vs transudative; pt does have hx of head/neck CA and colon CA - right pleural effusion has reaccumulated at admission CXR on 11/03/18 - O2 saturation wnl, patient intermittently short of breath but asymptomatic at time of evaluation - Dr. Aguilar consulted, thoracentesis performed today, awaiting the analysis of pleural fluid - V/Q scan yesterdaywith intermediate risk, CTA contraindicated due to CKD; d- dimer positive with age adjustment; Dr. Aguilar recommends against starting heparin at this time as intermediate V/Q scan is likely due to pleural effusion. - Cardiology consulted to evaluate cardiogenic etiology of recurrent pleural effusion (2) Bigeminy Code(s): I49.9 - CARDIAC ARRHYTHMIA, UNSPECIFIED SNOMED Code(s): 66067911 Comment: -mostly persistent bigeminal rhythm; now resolved s/p thoracentesis -likely due to right heart strain from pleural effusion -obtained EKG from PCP which demonstrated NSR, thus this arrhythmia was new to this admission -electrolytes are within normal limits (3) CAD (coronary artery disease) Code(s): I25.10 - ATHSCL HEART DISEASE OF [place] CORONARY ARTERY W/O ANG PCTRS SNOMED Code(s): 84512832 Comment: - s/p 3 stents - continue home ASA (4) COPD (chronic obstructive pulmonary disease) Code(s): J44.9 - CHRONIC OBSTRUCTIVE PULMONARY DISEASE, UNSPECIFIED SNOMED Code(s): 92208233 Comment: -it appears pt does not take any medications at home (5) CKD (chronic kidney disease) Code(s): N18.9 - CHRONIC KIDNEY DISEASE, UNSPECIFIED SNOMED Code(s): 006454385 Comment: -baseline Cr is ~1.5 -Cr today 1.70, continue to monitor -per PCP record, patient had hyperkalemia on lisinopril in the past (6) HTN (hypertension) Code(s): I10 - ESSENTIAL (PRIMARY) HYPERTENSION SNOMED Code(s): 96105666 Comment: -normotensive -continue home metoprolol (7) Osteomyelitis, jaw chronic Code(s): M27.2 - INFLAMMATORY CONDITIONS OF JAWS SNOMED Code(s): 25491490 Comment: - complication of head/neck CA XRT - follows with Dr. Garza, receives amoxicillin daily, will continue (8) Full code status Code(s): Z78.9 - OTHER SPECIFIED HEALTH STATUS SNOMED Code(s): 237550626 (9) DVT prophylaxis Code(s): BOM6780 - SNOMED Code(s): 469780079 Comment: -held for thoracentesis yesterday evening and this morning; will start heparin subQ TID 3 hours after thoracentesis
[2018-11-05 10:39] LABS: Body Fluid Source Pleural Fluid
[2018-11-05 11:47] LABS: Body Fluid Mono 23 %
--- NOTE | 2018-11-05 15:38 | PRO ---
THORACENTESIS REPORT: DATE OF PROCEDURE: 11/05/18 ANESTHESIA: Local anesthesia with 1% lidocaine, 4 mL. INDICATIONS FOR THE PROCEDURE: Large right-sided effusion for therapeutic benefit. DESCRIPTION OF PROCEDURE: Informed consent was obtained from the patient prior to the procedure after all the risks and benefits were thoroughly explained including risk of pneumothorax. Strict aseptic precautions and barrier techniques were followed. Appropriate time-out was agreed on by attending staff prior to the procedure. The patient was sitting up and leaning forward during the procedure. A portable ultrasound was utilized at the bedside to localize large amounts of right pleural fluid. Appropriate images of ultrasound were captured and saved into patient's medical record. Area was disinfected with chlorhexidine. Sterile drape was placed. A 1% lidocaine was inserted in between the pleural space, intradermally down into the pleural space , taking precautions. A #11 scalpel blade was used to make a stab incision. [employer]usion 8-[place] thoracentesis catheter was then inserted under manual suction. Catheter was left in place and needle was removed. 1800 mL of light yellow straw color fluid was aspirated on manual suction. The patient tolerated the procedure well. The fluid was sent into lab for biochemical and hematological and cytological examination. Catheter was then removed and sterile band-aid was applied. Postprocedure chest x-ray was ordered and is pending at the time of dictation. [id number]/[facility] #: [id number] JANEL
[2018-11-05] MEDS: Nitroglycerin 0.2 MG/HR PATCH* (5 MG) TRANSDERM SCH (16:28)
[2018-11-05] MEDS: Atorvastatin* 10 MG TAB PO SCH (16:31)
--- NOTE | 2018-11-05 16:57 | PN ---
Progress Note - Progress Note Date of Service: 11/05/18 - Pulm f/u note Note: Pt seen and examined at bedside. Pt reports feeling SOB with any movement prior to thoracentesis. Denies cough Active Medications Generic Name Dose Route Start Last Admin Trade Name Freq PRN Reason Stop Dose Admin Albuterol/Ipratropium 1 neb 11/03/18 19:35 Duoneb (Albuterol 2.5 Mg/Ipratropium 0.5 Mg) INH Q2H PRN SOB/WHEEZING Amoxicillin 500 mg 11/03/18 21:00 11/05/18 07:59 Amoxicillin Po (*) PO 500 mg BID [facility] Administration Aspirin 81 mg 11/04/18 09:00 11/05/18 08:00 Aspirin Ec Tab* PO 81 mg DAILY [facility] Administration Atorvastatin Calcium 10 mg 11/05/18 17:00 11/05/18 16:31 Lipitor* PO 10 mg DAILY [facility] Administration Finasteride 5 mg 11/04/18 09:00 11/05/18 08:00 Proscar Tab* PO 5 mg DAILY [facility] Administration Protocol Heparin Sodium (Porcine) 5,000 units 11/05/18 22:00 Heparin Vial(*) SUBCUT Q8HR [facility] Metoprolol Tartrate 50 mg 11/03/18 21:00 11/05/18 08:00 Lopressor Tab* PO 50 mg BID [facility] Administration Nitroglycerin 0.4 mg 11/03/18 14:12 Nitroglycerin Tab 0.4 Mg* SL Q5M PRN PAIN - CHEST Nitroglycerin 1 patch 11/05/18 16:00 11/05/18 16:28 Nitroglycerin 5 Mg Patch* TRANSDERM 1 patch DAILY@0900 [facility] Administration Pharmacy Profile Note 1 note 11/05/18 21:00 Nitro Patch/Oint Remove* PATCH OFF 2100 [facility] Vital Signs Temp Pulse Resp BP Pulse Ox 98.4 F 84 24 155/56 94 11/05/18 15:57 11/05/18 15:57 11/05/18 15:57 11/05/18 15:57 11/05/18 15:57 O/E: Pt in NAD HEENT: PERRLA, no JVD Lungs: Dimnished air entry at rt base CVS: S1, S2+, regular Abd: Soft, BS+ Ext: NOrmal ROM, no edema Skin: No rash Neuro: nO focal deficits Laboratory Results - last 24 hr 11/04/18 11/05/18 11/05/18 18:09 06:46 06:46 WBC 4.9 RBC 3.80 L Hgb 11.5 L Hct 34 L MCV 90 MCH 30 MCHC 34 RDW 15 Plt Count 135 L MPV 10.1 Neut % (Auto) 68.7 Lymph % (Auto) 17.2 Zavala % (Auto) 11.3 Eos % (Auto) 1.9 Baso % (Auto) 0.9 Absolute Neuts (auto) 3.4 Absolute Lymphs (auto) 0.8 L Absolute Monos (auto) 0.6 Absolute Eos (auto) 0.1 Absolute Basos (auto) 0 Absolute Nucleated RBC 0 Nucleated RBC % 0.2 D-Dimer, Quantitative 772 H Sodium 138 Potassium 4.3 Chloride 105 Carbon Dioxide 25 Anion Gap 8 BUN 31 H Creatinine 1.70 H Est GFR ( Amer) 47.9 Est GFR (Non-Af Amer) 39.6 BUN/Creatinine Ratio 18.2 Glucose 92 Calcium 8.6 Lactate Dehydrogenase 131 L Total Protein 6.3 L Fluid Source Fluid Volume Fluid Color Fluid Appearance Fluid WBC Fluid RBC Fluid Tot Cell Count Fluid Neutrophils Fluid Lymphocytes Fluid Monocytes Fluid Eosinophils Fluid Cell Count Rvw By 11/05/18 09:55 WBC RBC Hgb Hct MCV MCH MCHC RDW Plt Count MPV Neut % (Auto) Lymph % (Auto) Zavala % (Auto) Eos % (Auto) Baso % (Auto) Absolute Neuts (auto) Absolute Lymphs (auto) Absolute Monos (auto) Absolute Eos (auto) Absolute Basos (auto) Absolute Nucleated RBC Nucleated RBC % D-Dimer, Quantitative Sodium Potassium Chloride Carbon Dioxide Anion Gap BUN Creatinine Est GFR ( Amer) Est GFR (Non-Af Amer) BUN/Creatinine Ratio Glucose Calcium Lactate Dehydrogenase Total Protein Fluid Source Pleural fluid Fluid Volume 8 Fluid Color Yellow Fluid Appearance Clear Fluid WBC 815 Fluid RBC 460 Fluid Tot Cell Count 100 Fluid Neutrophils 8 Fluid Lymphocytes 68 Fluid Monocytes 23 Fluid Eosinophils 1 Fluid Cell Count Rvw By I/R: 73 yo male with PMHx significant for CAD, CKD, COPD, hx of head/neck CA and hx of colon CA presents with shortness of breath and found to have a right pleural effusion. Patient recently s/p right thoracentesis on 10/22/18 and found to be cytology negative. Pt with large rt effusion Had thoracentesis at bedside with removal of 1.8L of straw colored fluid Pt tolerated procedure well Post procedure CXR didnot show PTX Cell count showed lymphocyte predominant fluid Fluid likely sec to heart failure Pt reported symptomatic benefit Might need pleurex cathter if fluid recurs Rest of management as per primary team
--- NOTE | 2018-11-05 20:24 | CONS ---
CC: Dr. Awad; Dr. Blair; Dr. Last * CARDIOLOGY CONSULTATION: DATE OF CONSULT: 11/05/18 REQUESTING PROVIDER: Dr. Awad. REASON FOR EVALUATION: Bigeminy and chest pain. HISTORY OF PRESENT ILLNESS: This is a very pleasant 73-year-old gentleman with a history of coronary artery disease. Over the last 2 months, he has had more shortness of breath with exertion and some orthopnea. He said he also has had intermittent chest discomfort, sometimes beginning as a pressure in his central chest radiating to his back. He said he does not notice it when he is at work and is occupied, but he says it can come and go and last up to 50 minutes at other times. Because of worsening shortness of breath through September, he went to see his primary care doctor, Dr. Palma, for chest pain and shortness of breath. He was diagnosed with a pleural effusion, underwent thoracentesis with improvement in his symptoms for 4 to 5 days, but his symptoms returned and because of progressive symptoms, he decided to come to the emergency room. He was found to have a reaccumulation of his right pleural effusion and had 1.65 L of pleural fluid aspirated by Dr. Nguyen on 10/22/18 that was negative for infectious and malignant cells. He had orthopnea and could barely sleep due to shortness of breath, came to the emergency room on 11/03/18, and he had a recurrent moderate pleural effusion. He was given 40 of Lasix and his shortness of breath had improved and he was feeling better. His troponins were negative. He underwent thoracentesis at 11 o'clock today and says he is feeling somewhat better, but still has a low-grade pressure in his chest. He denies palpitations, syncope, or near syncope, but has been noted to have frequent PVCs and occasional bigeminy and a consultation was requested. He did have a cardiac catheterization on 11/30/08. He had a previous stenting of his right coronary artery and left circumflex in the past. A repeat cath on 11/30/08 was performed for acute coronary syndrome. At that time, he had a 30% plaque in the LAD, left main had no significant disease, stents in the distal portion of the circumflex were intact; however, the proximal portion extending into the proximal sigmoid vessel had a critical 99% disease with reduced ANALI grade flow across the lesion, felt to be the culprit. RCA, the stents in the mid portion were intact, there was proximal 40% disease. He received a 2.5 x 13 mm CYPHER stent to the circumflex lesion. PAST MEDICAL HISTORY: Included an [place] in 2008 and he underwent 2 or 3 stents at [facility]. He has a history of hypertension, hyperlipidemia, and tobacco use. He denies any history of aortic stenosis. He denies syncope or near syncope. 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 Garza, and he has renal insufficiency stage 3. PAST SURGICAL HISTORY: Includes as listed above, the cancer surgery for left tonsil and colon surgery. MEDICATIONS: As an inpatient include: 1. Albuterol. 2. Amoxicillin 500 mg b.i.d. 3. Aspirin 81 mg a day. 4. Heparin 5000 subcu q.8. 5. Metoprolol tartrate 50 mg b.i.d. 6. Nitroglycerin tabs p.r.n. ALLERGIES: His allergies in the chart are also listed as OXAPROZIN and CEPHALEXIN in addition to CIPRO. FAMILY HISTORY: He has a brother who has coronary artery disease and pacemaker , another brother who is alive and well and is older, and a sister who had PCI at age 70. SOCIAL HISTORY: He continues to smoke 6 cigarettes a day. He drinks 1 cup of caffeinated coffee a day. He has rare alcohol use about once every 3 months. He is and has 3 children. He works as a jeweler. REVIEW OF SYSTEMS: Review of systems x12 was negative, except as above. PHYSICAL EXAM: He is a well-developed, well-nourished gentleman, in no apparent distress. Blood pressure 139/64, pulse of 59, O2 sats 99% on room air. No significant JVD. Carotids 2+ with bruits or transmitted murmurs bilaterally. No cervical adenopathy or thyromegaly. Extraocular muscles intact. Sclerae anicteric. Cardiac Exam: S1, S2 with a 2/6 systolic ejection murmur at the base and 3/6 holosystolic murmur at the apex. Chest: There were decreased breath sounds at the right base and prolonged expiratory phase, increased resonance to percussion. No CVAT. Abdomen: Bowel sounds present, nontender, no hepatosplenomegaly. Femoral pulses intact with right femoral bruit. Distal pulses were present. Negative Homans sign. Deep tendon reflexes 1/4 in the lower extremities, 2/4 in the upper extremities. Motor strength is 5/5 bilaterally. DIAGNOSTIC STUDIES/LAB DATA: His EKG from 08/25/17 revealed sinus bradycardia with first-degree AV block and inferolateral ST-T changes, poor R-wave progression, left atrial enlargement. His EKG from 11/03/18 revealed sinus sinus rhythm with first- degree AV block and frequent PVCs and more pronounced inferolateral ST-T changes. An EKG from 11/04/18 revealed sinus rhythm with first-degree AV block and bigeminy and inferolateral ST-T changes. Chest x-ray from today revealed improvement in the right pleural effusion after thoracentesis. Labs include anemia with hematocrit of 34, hemoglobin 11.5 from today. Sodium 138, potassium of 4.3, BUN of 31, creatinine of 1.7. BNP elevated at 684 yesterday. Troponins of 0.01 and 0.01 on 11/03/18. Total protein low at 6.3. D-dimer elevated at 772. An echocardiogram was performed on 11/03/18 which revealed mild concentric LVH, EF of greater than 65%, [id number] MR, moderate with a valve area of 1.3 cm2. No significant pericardial effusion. Mild aortic stenosis by 2D and moderate bivalve area, mild TR. No pulmonary hypertension. IMPRESSION AND PLAN: My impression is that Mr. Henning has EKG changes, premature ventricular contractions, bigeminy, and chest pain of unclear etiology and also had a recent pleural effusion. It is unclear whether his ectopy, bigeminy, and EKG changes are due to progression of his underlying coronary disease or due to pleural effusion. I did discuss this with the patient and recommended the followin. I suggest that we arrange for a pharmacologic stress test to evaluate for progression of his ischemia. 2. If indeed he has progression of ischemia, cardiac catheterization could be entertained. 3. I strongly advised him to discontinue tobacco use. 4. We will continue his beta owen. 5. If his ischemia workup is negative, I would consider the possibility that his frequent premature ventricular contractions and bigeminy could be compromising cardiac output, especially in light of his mitral regurgitation and aortic stenosis . At some point, further evaluation of his mitral regurgitation with transesophageal echo and/or suppression of his premature ventricular contractions may improve his cardiac output. 6. He also appears to have vascular disease and I would consider an outpatient evaluation for his right femoral bruit and intermittent tingling in his lower extremities. 7. Would also recommend maintaining his electrolytes in the normal range with potassium of 4 or more and we will check his magnesium. Further recommendations will depend on his clinical course. [id number]/[facility] #: [id number] JANEL
[2018-11-05] MEDS: Heparin VIAL(*) 5000 UNITS/ML VIAL (FIVE THOUSAND) SUBCUT SCH (21:19)
[2018-11-05] MEDS: Nitro Patch/OINT Remove PATCH OFF SCH (21:19)
[2018-11-06] MEDS: Heparin VIAL(*) 5000 UNITS/ML VIAL (FIVE THOUSAND) SUBCUT SCH ×3 (05:05→21:16)
[2018-11-06 07:20] LABS: ABS Basophils 0 10^3/ul (0-0.2); ABS Eosinophils 0.1 10^3/ul (0-0.6); ABS Lymphocytes 0.8 10^3/ul (1.0-4.8); ABS Monocytes 0.6 10^3/ul (0-0.8); ABS Neutrophils 3.9 10^3/ul (1.5-7.7); ABS Nucleated RBC 0 10^3/ul; Eosinophil % 1.5 %; Hematocrit 35 % (36-46); Hemoglobin 12.1 g/dL (14.0-18.0); Lymphocyte % 14.5 %; Mean Corpuscular HGB Conc 35 g/dL (31-36); Mean Corpuscular Hemoglobin 31 pg (27-31); Mean Corpuscular Volume 89 fL (80-94); Mean Platelet Volume 9.7 fL (7.4-10.4); Nucleated Red Blood Cells % 0; Platelet Count 149 10^3/uL (150-450); Red Blood Count 3.94 10^6 /uL (4.18-5.48); Red Cell Distribution Width 15 % (10.5-15); White Blood Count 5.3 10^3/uL (3.5-10.8)
[2018-11-06 07:37] LABS: Calcium 8.6 mg/dL (8.6-10.3); EGFR African American 48.9 (>60); EGFR Non-African American 40.4 (>60); Potassium 4.3 mmol/L (3.5-5.0)
[2018-11-06] MEDS ORDERED: Regadenoson* 0.4 MG/5 ML SYRINGE ONE (10:38)
--- NOTE | 2018-11-06 11:21 | PN ---
Subjective Date of Service: 11/06/18 Interval History: Patient reports that his shortness of breath at rest has improved. He was experiencing some shortness of breath with exertion today. He notes a "catch of breath" occasionally at breath, but without persistent dyspnea. He reports an intermittent dry cough, which did occur after his last thoracentesis. He otherwise denies chest pain, palpitations, tachycardia, abd pain, n/v. Objective Active Medications: Albuterol/Ipratropium (Duoneb (Albuterol 2.5 Mg/Ipratropium 0.5 Mg)) 1 neb INH Q2H PRN PRN Reason: SOB/WHEEZING Amoxicillin (Amoxicillin Po (*)) 500 mg PO BID [facility] Last Admin: 11/05/18 21:19 Dose: 500 mg Aspirin (Aspirin Ec Tab*) 81 mg PO DAILY [facility] Last Admin: 11/05/18 08:00 Dose: 81 mg Atorvastatin Calcium (Lipitor*) 10 mg PO DAILY [facility] Last Admin: 11/05/18 16:31 Dose: 10 mg Finasteride (Proscar Tab*) 5 mg PO DAILY [facility]; Protocol Last Admin: 11/05/18 08:00 Dose: 5 mg Heparin Sodium (Porcine) (Heparin Vial(*)) 5,000 units SUBCUT Q8HR [facility] Last Admin: 11/06/18 05:05 Dose: 5,000 units Metoprolol Tartrate (Lopressor Tab*) 50 mg PO BID [facility] Last Admin: 11/05/18 21:19 Dose: 50 mg Nitroglycerin (Nitroglycerin Tab 0.4 Mg*) 0.4 mg SL Q5M PRN PRN Reason: PAIN - CHEST Nitroglycerin (Nitroglycerin 5 Mg Patch*) 1 patch TRANSDERM DAILY@0900 [facility] Last Admin: 11/05/18 16:28 Dose: 1 patch Pharmacy Profile Note (Nitro Patch/Oint Remove*) 1 note PATCH OFF 2100 [facility] Last Admin: 11/05/18 21:19 Dose: 1 note Vital Signs - 8 hr 11/06/18 11/06/18 03:18 06:57 Temperature 98.5 F Pulse Rate 57 Respiratory 18 16 Rate Blood Pressure 146/51 (mmHg) O2 Sat by Pulse 96 Oximetry Oxygen Devices in Use Now: None Appearance: Elderly, thin male, appears stated age, appearing in NAD; at bedside Eyes: No Scleral Icterus, PERRLA Ears/Nose/Mouth/Throat: Mucous Membranes Moist Neck: - - neck is supple, without JVD Respiratory: - - Rhales in right lung base, otherwise clear to auscultation Cardiovascular: - - irregular rhythm, regular rate, grade I systolic murmur auscultated Abdominal: - - abdomen is soft, nontender, nondistended Extremities: No Edema, No Clubbing, Cyanosis Skin: No Rash or Ulcers, - - Skin is warm, dry, intact Neurological: Alert and Oriented x 3, NL Muscle Strength and Tone Result Diagrams: 11/06/18 06:54 11/06/18 06:54 Microbiology and Other Data: Microbiology 11/03/18 16:00 Stool Occult Blood (SUJATHA) - Final Stool Assess/Plan/Problems-Billing Assessment: 73 yo male with PMHx significant for CAD, CKD, COPD, hx of head/neck CA and hx of colon CA presents with shortness of breath and found to have a right pleural effusion. Patient recently s/p right thoracentesis on 10/22/18 and found to be cytology negative. - Patient Problems (1) Recurrent right pleural effusion Code(s): J90 - PLEURAL EFFUSION, NOT ELSEWHERE CLASSIFIED SNOMED Code(s): 47495158 Comment: -SOB improved, O2 sat wnl; rhales in RLL new today, ordered CXR; cough today likely related to lung reexpansion s/p thoracentesis - recurrent right pleural effusion starting 11/03/18 s/p thoracentesis for right pleural effusion on 10/22/18 - thoracentesis performed 11/05, pleural fluid LDH and protein are sendouts and awaiting results - Cardiology consulted, appreciate recommendations; stress test today per rec - V/Q scan with intermediate risk, CTA contraindicated due to CKD; d-dimer positive with age adjustment; Dr. Aguilar recommends against starting heparin at this time as intermediate V/Q scan is likely due to pleural effusion. (2) Bigeminy Code(s): I49.9 - CARDIAC ARRHYTHMIA, UNSPECIFIED SNOMED Code(s): 57908865 Comment: -resolved s/p thoracentesis, but returned on tele today; patient is asymptomatic -obtained EKG from PCP which demonstrated NSR, thus this arrhythmia was new to this admission -will keep K>4 and Mg>2 -cardiology consulted, as discussed above (3) CAD (coronary artery disease) Code(s): I25.10 - ATHSCL HEART DISEASE OF [place] CORONARY ARTERY W/O ANG PCTRS SNOMED Code(s): 71089038 Comment: - s/p 3 stents - continue home ASA (4) COPD (chronic obstructive pulmonary disease) Code(s): J44.9 - CHRONIC OBSTRUCTIVE PULMONARY DISEASE, UNSPECIFIED SNOMED Code(s): 37940759 Comment: -it appears pt does not take any medications at home -to discuss smoking cessation at discharge (5) CKD (chronic kidney disease) Code(s): N18.9 - CHRONIC KIDNEY DISEASE, UNSPECIFIED SNOMED Code(s): 893631452 Comment: -baseline Cr is ~1.5 -Cr today 1.67 today, at baseline -per PCP record, patient had hyperkalemia on lisinopril in the past (6) HTN (hypertension) Code(s): I10 - ESSENTIAL (PRIMARY) HYPERTENSION SNOMED Code(s): 45758795 Comment: -normotensive -continue home metoprolol (7) Osteomyelitis, jaw chronic Code(s): M27.2 - INFLAMMATORY CONDITIONS OF JAWS SNOMED Code(s): 71730018 Comment: - complication of head/neck CA XRT - follows with Dr. Garza, receives amoxicillin daily, will continue (8) Full code status Code(s): Z78.9 - OTHER SPECIFIED HEALTH STATUS SNOMED Code(s): 976923796 (9) DVT prophylaxis Code(s): AAB4551 - SNOMED Code(s): 070831782 Comment: -heparin subQ TID
[2018-11-06 11:36] LABS: Magnesium 1.9 mg/dL (1.9-2.7)
[2018-11-06] MEDS ORDERED: Magnesium Sulfate 1 GM IV* 1 GM/100 ML BAG IV ONE (15:10)
[2018-11-06] MEDS: Metoprolol Tartrate TAB* 50 mg PO SCH ×2 (15:39→21:16)
[2018-11-06] MEDS: Atorvastatin* 10 MG TAB PO SCH (15:40)
[2018-11-06] MEDS: Nitroglycerin 0.2 MG/HR PATCH* (5 MG) TRANSDERM SCH (15:41)
[2018-11-06] MEDS: Finasteride TAB* 5 MG PO SCH (15:41)
[2018-11-06] MEDS: Aspirin EC TAB* 81 MG TAB.EC PO SCH (15:41)
[2018-11-06] MEDS: Amoxicillin PO (*) 500 MG CAP PO SCH ×2 (15:43→21:16)
[2018-11-06 16:12] LABS: Lactate Dehydrogenase, BF 96 U/L
--- NOTE | 2018-11-06 19:53 | PN ---
Subjective Date of Service: 11/06/18 - CC: SOB Interval History: The patient states his breathing has improved c/w admission. Medications Active Medications: Albuterol/Ipratropium (Duoneb (Albuterol 2.5 Mg/Ipratropium 0.5 Mg)) 1 neb INH Q2H PRN PRN Reason: SOB/WHEEZING Amoxicillin (Amoxicillin Po (*)) 500 mg PO BID [facility] Last Admin: 11/06/18 15:43 Dose: 500 mg Aspirin (Aspirin Ec Tab*) 81 mg PO DAILY [facility] Last Admin: 11/06/18 15:41 Dose: 81 mg Atorvastatin Calcium (Lipitor*) 10 mg PO DAILY [facility] Last Admin: 11/06/18 15:40 Dose: 10 mg Finasteride (Proscar Tab*) 5 mg PO DAILY [facility]; Protocol Last Admin: 11/06/18 15:41 Dose: 5 mg Heparin Sodium (Porcine) (Heparin Vial(*)) 5,000 units SUBCUT Q8HR [facility] Last Admin: 11/06/18 16:01 Dose: Not Given Metoprolol Tartrate (Lopressor Tab*) 50 mg PO BID [facility] Last Admin: 11/06/18 15:39 Dose: 50 mg Nitroglycerin (Nitroglycerin Tab 0.4 Mg*) 0.4 mg SL Q5M PRN PRN Reason: PAIN - CHEST Nitroglycerin (Nitroglycerin 5 Mg Patch*) 1 patch TRANSDERM DAILY@0900 [facility] Last Admin: 11/06/18 15:41 Dose: Not Given Pharmacy Profile Note (Nitro Patch/Oint Remove*) 1 note PATCH OFF 2100 [facility] Last Admin: 11/05/18 21:19 Dose: 1 note Objective Vital Signs: Temp Pulse Resp BP Pulse Ox 98.2 F 71 20 128/60 97 11/06/18 16:26 11/06/18 16:26 11/06/18 19:45 11/06/18 16:26 11/06/18 16:26 Oxygen Devices in Use Now: None Appearance: older man, lying at 30 degrees, comfortable appearing. Eyes: No Scleral Icterus, PERRLA Ears/Nose/Mouth/Throat: Mucous Membranes Moist Neck: NL Appearance and Movements; NL JVP, No Thyroid Enlargement, Masses Respiratory: - - Diminished BS bases bilaterally, right worse than left. Cardiovascular: RRR - soft mid peaking murmur RUSB/LUSB Abdominal: No Hepatosplenomegaly Extremities: No Edema - 2+ DPP Skin: No Rash or Ulcers Neurological: Alert and Oriented x 3 Lines/Tubes/Other Access: Clean, Dry and Intact Peripheral IV Laboratory Results: 11/06/18 06:54 11/06/18 06:54 INR (Anticoag Therapy) 1.10 (0.77-1.02) H 11/03/18 10:53 APTT 33.1 seconds (26.0-36.3) 11/03/18 10:53 Total Bilirubin 0.60 mg/dL (0.2-1.0) 11/03/18 10:53 AST 18 U/L (13-39) 11/03/18 10:53 ALT 16 U/L (7-52) 11/03/18 10:53 Alkaline Phosphatase 76 U/L (34-104) 11/03/18 10:53 B-Natriuretic Peptide 684 pg/mL (<=100) H 11/04/18 06:33 Total Protein 6.3 g/dL (6.4-8.9) L 11/05/18 06:46 Albumin 3.6 g/dL (3.2-5.2) 11/03/18 10:53 Globulin 3.5 g/dL (2-4) 11/03/18 10:53 Albumin/Globulin Ratio 1.0 (1-3) 11/03/18 10:53 11/03/18 11/03/18 11/03/18 10:53 13:47 16:47 Troponin I 0.01 0.01 0.01 Diagnostic Imaging: Patient Name: JANINE LAL Medical Record#: [id number] Ordering Physician: GEMA Hu Acct.#: [id number] : 1945 Age: 73 Sex: M Location: [address] [place] [address]/TELEMETRY Exam Date: 11/06/18 101 ADM Status: ADM IN Order Information: NUCLEAR CARDIAC STRESS TEST Accession Number: [id number] CPT: 19408 INDICATION: Shortness of breath. COMPARISON: Comparison is made with a prior chest x-ray study from November 05, 2018. Technique: A single day myocardial perfusion stress study was performed. Initially the resting study was performed. The patient was given an intravenous injection of 10.6 mCi of technetium 99m tetrofosmin and and the heart was imaged in multiple projections. The patient returned later in the day and under the direction of Dr. Keith, the patient was given intervenous injection of Lexiscan. Subsequently the patient was given intravenous injection of 25.5 mCi of technetium 99m tetrofosmin and the heart was imaged in multiple projections. Images were reconstructed in the axial, sagittal and coronal planes and in a 3- D format. FINDINGS: There appears to be normal wall motion and myocardial thickening. The left ventricular ejection fraction was calculated to be 68%. No significant focal myocardial perfusion defects are seen after pharmacologic stress or rest. On the CT attenuation corrected images note is made of a small hydropneumothorax on the right side. There is also a right lower lobe infiltrate. The results of this exam were called to the referring clinician. IMPRESSION: 1. NO EVIDENCE FOR INFARCT OR ISCHEMIA. 2. SMALL RIGHT HYDROPNEUMOTHORAX AND RIGHT LOWER LOBE INFILTRATE RECOMMEND A FOLLOW-UP CHEST X-RAY FOR FURTHER EVALUATION. ASSESSMENT: Low risk Based on imaging criteria from ACC/AHA 2002 Guideline Update for the Management of Patients With Chronic Stable Angina Table 23. Noninvasive Risk Stratification. <Electronically signed by Stevan Alba MD in [place]> 11/06/18 1121 Dictated By: Stevan Alba MD Dictated Date/Time: 11/06/18 1121 Transcribed Date/Time: 11/06/18 1111 Copy to: Patient Name: JANINE LAL Medical Record#: [id number] Ordering Physician: GEMA Hu Acct.#: [id number] : 1945 Age: 73 Sex: M Location: [address] [place] [address] MEDICAL/TELEMETRY Exam Date: 11/06/18 1451 ADM Status: ADM IN Order Information: CHEST PA & LAT 2 VWS Accession Number: [id number] CPT: 28967 INDICATION: Recurrent pleural effusion COMPARISON: Most recent comparison chest x-rays dated November 05, 2018 TECHNIQUE: PA and lateral views of the chest were obtained. FINDINGS: The heart and mediastinum are normal in size and contour. There is stable calcification overlying the arch of the aorta. Again seen is density obscuring the right lung base. More superiorly the lungs are well aerated and the left lung base is well-aerated. On the lateral view there is a small degree of costophrenic angle blunting as well as the appearance of fluid in the right minor fissure. There is questionable interval appearance of a small right apical pneumothorax. Visualized bones are normal for the patient's age. There is no radiographic evidence of free air beneath the diaphragm IMPRESSION: 1. QUESTIONABLE APPEARANCE OF SMALL RIGHT APICAL PNEUMOTHORAX RELATIVE TO THE MOST RECENT CHEST X-RAY ACQUIRED NOVEMBER 05, 2018. IF IT WILL INFLUENCE CLINICAL MANAGEMENT ADDITIONAL CHEST X-RAYS IN THE RIGHT LATERAL AND LEFT LATERAL DECUBITUS POSITION COULD BE ACQUIRED. 2. PERSISTENT SMALL RIGHT LUNG BASE PLEURAL EFFUSION BUT REDUCED COMPARED TO THE PREVIOUS DAY CHEST X-RAY WITH AN OVERALL IMPROVED DEGREE OF AERATION OF THE RIGHT LUNG. ECHO The left ventricular chamber size is normal. Mild concentric left ventricular hypertrophy is observed. Global left ventricular wall motion and contractility are within normal limits. There is normal left ventricular systolic function. The estimated ejection fraction is 65-70% The left atrium is severely dilated. The right ventricular chamber size and systolic function are within normal limits. There is mild aortic stenosis. Mild to moderate MR, possibly greater PA pressure 26 mmHg. EKG Data: Telemetry: PVC's, occ V bigeminy. Improving. Assessment/Plan 73 yo male with PMHx CAD admitted after awakening with severe SOB, tachypnea, pleuritic discomfort. He has been actively treated for recurrent RIGHT pleural effusion, is clinically better s/p thoracentesis. PMHx includes CAD, , MR, COLON CA, SCC TONSIL (RT, CHEMO), COPD, MARIA DOLORES, OSTEO L JAW, CKD STG 3. The patient's stress test is reassuring and there is no evidence of significant progression in CAD. Pneumothorax noted on CXR today. Ectopy improving. CAD: No intervention/cath indicated, continue with medical management. Continue metoprolol, ASA, statin. Smoking cessation discussed. May not need nitrates for CAD, but may help breathing. PVC's Continue metoprolol Likely reactive to respiratory issues. Pleural effusion: Out of proportion to ventricular and valvular abnormalities on recent echo. The patient did eat out the night before, discussed minimizing salt. If concern cardiac in origin (MR greater than estimated, see echo report), consider LIVAN. Malignancy and infectious etiology negative to day. Etiology appears unclear based on review of studies and pulmonary evaluation. Pneumothorax: Post thoracentesis, small, might be a factor in ectopy, follow. Cardiology will follow distantly.
[2018-11-06] MEDS: Nitro Patch/OINT Remove PATCH OFF SCH (21:17)
--- NOTE | 2018-11-06 22:04 | PN ---
Hospitalist Progress Note Date of Service: 11/06/18 Messaged by Mckenzie to check CXR. Questionable R. PTX reported and seem to be the case upon review of rotated CXR film. Placed pt on O2 at 2L for goal of sats >90%. Discussed case w/Dr. Jordan of Sx and pt to be followed in AM. D/W JAY.
[2018-11-07] MEDS: Heparin VIAL(*) 5000 UNITS/ML VIAL (FIVE THOUSAND) SUBCUT SCH ×2 (04:57→15:30)
[2018-11-07 06:51] LABS: ABS Basophils 0 10^3/ul (0-0.2); ABS Eosinophils 0.2 10^3/ul (0-0.6); ABS Monocytes 0.8 10^3/ul (0-0.8); ABS Neutrophils 3.5 10^3/ul (1.5-7.7); ABS Nucleated RBC 0 10^3/ul; Hematocrit 34 % (36-46); Lymphocyte % 17.9 %; Mean Corpuscular HGB Conc 35 g/dL (31-36); Mean Corpuscular Hemoglobin 31 pg (27-31); Mean Corpuscular Volume 89 fL (80-94); Mean Platelet Volume 9.9 fL (7.4-10.4); Nucleated Red Blood Cells % 0.1; Platelet Count 142 10^3/uL (150-450); Red Blood Count 3.82 10^6 /uL (4.18-5.48); Red Cell Distribution Width 15 % (10.5-15); White Blood Count 5.4 10^3/uL (3.5-10.8)
[2018-11-07 07:13] LABS: BUN/Creatinine Ratio 18.1 (8-20); Calcium 8.4 mg/dL (8.6-10.3); EGFR African American 47.6 (>60); EGFR Non-African American 39.3 (>60); Potassium 4.7 mmol/L (3.5-5.0)
[2018-11-07] MEDS: Atorvastatin* 10 MG TAB PO SCH (10:14)
[2018-11-07] MEDS: Aspirin EC TAB* 81 MG TAB.EC PO SCH (10:14)
[2018-11-07] MEDS: Metoprolol Tartrate TAB* 50 mg PO SCH (10:15)
[2018-11-07] MEDS: Finasteride TAB* 5 MG PO SCH (10:15)
[2018-11-07] MEDS: Nitroglycerin 0.2 MG/HR PATCH* (5 MG) TRANSDERM SCH (10:15)
[2018-11-07] MEDS: Amoxicillin PO (*) 500 MG CAP PO SCH (10:23)
--- NOTE | 2018-11-07 11:15 | PN ---
Progress Note - Progress Note Date of Service: 11/07/18 Note: cxr reviewed, stable small apical pneumothorax after thoracentesis by Dr Roberts , no need for surgical intervention/chest tube at this time.
[2018-11-07 11:26] VITALS: BP 111/59
--- NOTE | 2018-11-08 00:27 | DS ---
Amended report to attach addendum to report. CC: Dr. Jessica Palma; Dr. Phong Last * DISCHARGE SUMMARY: DATE OF ADMISSION: 11/03/18 DATE OF DISCHARGE: 11/07/18 ATTENDING PHYSICIAN: Dr. Bhakti Vee * (dictated by GEMA Hazel). PRIMARY CARE PROVIDER: Dr. Jessica Palma. MANAGER FINANCIAL SERVICES: Dr. Phong Last. CONSULTING INTERNET SPECIALIST: Dr. Alma Aguilar. CONSULTING MANAGER FINANCIAL SERVICES: Dr. Pompa. PRIMARY DIAGNOSES: 1. Recurrent pleural effusion, unknown etiology. 2. Bigeminy. SECONDARY DIAGNOSES: 1. Hypertension. 2. Chronic obstructive pulmonary disease. 3. History of colon cancer. 4. History of tonsillar cancer status post surgery, radiation, and chemotherapy. 5. History of mitral regurgitation. 6. Coronary artery disease. 7. Sleep apnea, noncompliant with CPAP. 8. Cholelithiasis. 9. Benign prostatic hypertrophy. 10. History of fractured jaw complicated by osteomyelitis, taking chronic amoxicillin. 11. Chronic kidney disease stage 3. PROCEDURES: Thoracentesis on 11/05/[address] Aguilar, 1800 mL of white -yellow straw-colored fluid aspirated. Tolerated procedure well. STUDIES: Chest x-ray on 11/03/18, impression: Moderate-sized right pleural effusion. COPD. Chest x-ray on 11/04/18, impression: Moderate-sized right pleural effusion is noted. Chest x-ray on 11/05/18 after thoracentesis, impression: Decreased right pleural effusion. No appreciable pneumothorax. Chest x-ray on 11/06/18, impression: 1. Questionable appearance of small right apical pneumothorax relative to the most recent chest x-ray acquired 11/05/18. If it will influence clinical management, additional chest x-ray in the right lateral and left lateral decubitus position will be acquired. 2. Persistent small right lung base pleural effusion but reduced compared to previous day's chest x-ray with overall improved degree of aeration of right lung. Chest x-ray on 11/07/18, impression: 1. COPD. 2. Again noted is a small right apical pneumothorax, stable. 3. Layering right pleural effusion, unchanged. Chest ultrasound on 11/05/18, impression: Moderate right pleural effusion, site marked for thoracentesis. Nuclear stress test on 11/06/18, impression: 1. No evidence for infarct or ischemia. 2. Small right hydropneumothorax and right lower lobe infiltrate. Recommended a follow-up chest x-ray for further evaluation. Assessment: Low risk. EKG on 11/03/18: Bigeminy; rate 76 beats per minute; normal axis with ST depressions in V1, V2, and V3 and T-wave inversions in lead 2 and lead 3 and aVF , which are new compared to EKG on 08/25/17. Transthoracic echocardiogram on 11/03/18, conclusions: Left ventricular chamber size is normal. Mild concentric left ventricular hypertrophy is observed. Global left ventricular wall motion and contractility are within normal limits. There is normal left ventricular systolic function. The estimated ejection fraction is 65% to 70%. The left atrium is severely dilated. The right ventricular chamber size and systolic function are within normal limits. There is mild aortic stenosis. There is [id number] mitral regurgitation that is eccentric (there is no significant pericardial effusion, minimal amount of excess pericardial fluid noted adjacent to right atrium). Lung V/Q scan on 11/04/18, impression: There is an indeterminate probability for pulmonary embolus matched defects in the right lung, it is likely felt to represent pleural effusion with underlying chest x-ray abnormality. SIGNIFICANT LABORATORY DATA: D-dimer on 11/04/18 was 772. Troponins on were 0.01 x3. BNP 565 on 11/03/18 and 684 on 11/04/18. White blood cell count 4.8 on admission and 5.4 at discharge. DISCHARGE MEDICATIONS: 1. Nicotine inhaler 10 mg inhaled q.2 hours p.r.n. cravings. 2. Lipitor 10 mg p.o. daily. Continued home medications: 1. Nitroglycerin 0.4 mg sublingual q.4 hours p.r.n. chest pain. 2. Metoprolol 50 mg p.o. b.i.d. 3. Dutasteride 0.5 mg p.o. daily. 4. Aspirin 81 mg p.o. daily. 5. Amoxicillin 500 mg p.o. b.i.d. HISTORY OF PRESENT ILLNESS/HOSPITAL COURSE: Alessandro Henning is a 73-year-old male with past medical history significant for tobacco use, COPD, coronary artery disease, history of tonsillar cancer, history of colon cancer, and chronic kidney disease stage 3 who presented to the emergency department with shortness of breath and found to have a right-sided pleural effusion on and it is of note that he had a pleural effusion in 2016 and more recently had a thoracentesis on 10/22/18. At the time of that thoracentesis, the analysis of the pleural fluid was not ordered and therefore, exudative versus transudative properties were not analyzed. During his hospital stay, his shortness of breath was not consistent, only intermittent. He did not experience any palpitations, tachycardia, or chest pain despite nearly consistent bigeminy. The patient had a thoracentesis with Dr. Aguilar on and did experience relief of the shortness of breath, though he did note an increased cough, increased from his baseline. He did note that this occurred after his last thoracentesis 2 weeks prior as well. After his thoracentesis, a repeat chest x-ray did find a very small pneumothorax in the right apex and the patient was started on oxygen to help reduce the pneumothorax. On repeat chest x-ray, the pneumothorax was stable and the patient was stable for discharge. During his hospital stay, Dr. Aguilar did have high suspicion that the underlying cause of his recurrent pleural effusion is due to cardiac cause. Dr. Blair was the table operator initially consulted and suggested a stress test , which was determined to be low risk, though given his history of coronary artery disease, he suggested starting Lipitor. Following this day, Dr. Pompa was the table operator who saw the patient and did not have any recommendations in regards to the bigeminy due to the patient being asymptomatic and with controlled rate and he is already on metoprolol. Dr. Pompa suggested a transesophageal echocardiogram to further estimate the mitral regurgitation that was underestimated on TTE. Finally, of note, the pleural fluid determined no inflammation or infection or malignancy. The pattern of the pleural effusion is exudative given Light's criteria. For treatment of the patient's coronary artery disease in addition to starting Lipitor, his home metoprolol and aspirin were continued. 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 As the patient does not have medication for his COPD, this was untreated during his stay. For treatment of the patient's hypertension, his home metoprolol was continued and he was normotensive throughout his stay. On day of discharge, the patient is feeling well, his cough is improved, he does not experience intermittent shortness of breath as he did prior to thoracentesis. He denied chest pain, palpitations, tachycardia, abdominal pain, nausea, vomiting, and diarrhea. Given the patient's new atrial bigeminy, V/Q scan was ordered to rule out pulmonary embolism; however, this was complicated by the underlying pleural effusion. Although D-dimer was elevated, Dr. Aguilar suggested against starting a heparin drip at that time. She suspected that the elevated D-dimer in addition to the V/Q scan abnormality were due to the pleural effusion. REVIEW OF SYSTEMS: All pertinent positives and negatives are in the HPI. All other systems are negative. PHYSICAL EXAMINATION: Thin elderly male appears younger than stated age, lying upright in hospital bed, appearing comfortable, in no acute distress. Head: Normocephalic, atraumatic. Eyes: PERRL. Sclerae anicteric. EOMI. ENT: Mucous membranes are moist. Neck: Trachea midline and neck is supple without JVD. Cardio: Irregular rhythm. Regular rate. Grade 1 systolic murmur auscultated. Respiratory: Lungs are clear to auscultation throughout without diminished breath sounds. No rales, rhonchi, or wheezes. Abdomen: Soft, nontender, and nondistended. Extremities: No cyanosis or edema or calf tenderness. Neuro: Alert and oriented x3. Sensation intact. No neuro focal deficits. Skin: Warm, dry, and intact. Psych: Pleasant and cooperative. DISCHARGE PLAN: The patient is to follow up with his primary provider within 1 week and at this time he should have a repeat chest x-ray to assess the stability of his small pneumothorax and small pleural effusion. The patient should follow up with his table operator, Dr. Last within 1 to 2 weeks. At this time, Dr. Last's office can schedule a transesophageal echocardiogram to further assess the extent of his mitral regurgitation in order to establish if this is the cause of his recurrent pleural effusion. Dr. Last may also want to reevaluate his bigeminal rhythm, although it is suspected due to right heart strain caused by pleural effusion. It is of note that Dr. Aguilar suggested if the patient requires further additional thoracentesis, it would be beneficial to order pleural fluid, albumin in addition to additional studies to rule out asbestosis and tuberculosis. The patient was advised to quit smoking and provided with nicotine replacement therapy on discharge. For treatment of his coronary artery disease, a statin was added by Dr. Blair and a prescription was provided at discharge. The patient was advised to return to the hospital if he is experiencing shortness of breath, other difficulty breathing, chest pain, or cyanosis. For treatment of his osteomyelitis of jaw, his home amoxicillin can be continued. For treatment of his hypertension, his home metoprolol can be continued. For treatment of his COPD, his primary care provider may wish to evaluate, when the patient is stable, with PFTs CONDITION ON DISCHARGE: Stable. TIME SPENT: Approximately 50 minutes were spent on this discharge, approximately half of this time was spent at bedside. GEMA HAZEL ADDENDUM TO DISCHARGE SUMMARY: DISPOSITION: Home. GEMA HAZEL [id number]/CPS #: [id number]/CPS #: [id number] JANEL
--- NOTE | 2018-11-12 11:48 | DS ---
DISCHARGE SUMMARY: ADDENDUM: DISPOSITION: Home. GEMA MONTIEL [id number]/[facility] #: [id number]
== END 2018-11-07 16:30 | disposition home or self-care (01) | DRG 187 ==
LOC: ED 10:24 → MEDTELE 14:10 → OBSVTOIN 11-04 14:00 → INTOOBSV 11-05 14:00 → OBSVTOIN 11-05 14:00
PROVIDERS: ADMIT Student in an Organized Health Care Education/Training Program; ATTEND Internal Medicine
PROC: 0W993ZZ Drainage of Right Pleural Cavity, Percutaneous Approach (ICD-10-PCS; principal; 2018-11-05)
PROC: 4A12XM4 Monitoring of Cardiac Stress, External Approach (ICD-10-PCS; 2018-11-05)
DX: J90 Pleural effusion, not elsewhere classified (principal); M86.68 Other chronic osteomyelitis, other site; J93.9 Pneumothorax, unspecified; R00.8 Other abnormalities of heart beat; I12.9 Hypertensive chronic kidney disease with stage 1 through stage 4 chronic kidney disease, or unspecified chronic kidney disease; E78.00 Pure hypercholesterolemia, unspecified; K44.9 Diaphragmatic hernia without obstruction or gangrene; F17.210 Nicotine dependence, cigarettes, uncomplicated; N18.3 Chronic kidney disease, stage 3 (moderate); J44.9 Chronic obstructive pulmonary disease, unspecified; I25.10 Atherosclerotic heart disease of native coronary artery without angina pectoris; N40.0 Benign prostatic hyperplasia without lower urinary tract symptoms; K80.20 Calculus of gallbladder without cholecystitis without obstruction; E04.8 Other specified nontoxic goiter; E78.5 Hyperlipidemia, unspecified; I49.3 Ventricular premature depolarization; G47.33 Obstructive sleep apnea (adult) (pediatric); I08.0 Rheumatic disorders of both mitral and aortic valves; Z92.3 Personal history of irradiation; Z92.21 Personal history of antineoplastic chemotherapy; Z85.038 Personal history of other malignant neoplasm of large intestine; Z82.49 Family history of ischemic heart disease and other diseases of the circulatory system; Z80.52 Family history of malignant neoplasm of bladder; Z95.5 Presence of coronary angioplasty implant and graft; Z72.89 Other problems related to lifestyle; Z91.19 Patient's noncompliance with other medical treatment and regimen; Z88.1 Allergy status to other antibiotic agents; Z88.8 Allergy status to other drugs, medicaments and biological substances; Z85.818 Personal history of malignant neoplasm of other sites of lip, oral cavity, and pharynx; I25.2 Old myocardial infarction; Z79.82 Long term (current) use of aspirin
CPT/HCPCS: 36415; 71045; 71046; 71048; 76604; 78452; 78582; 80048; 80053; 82270; 82607; 82945; 83036; 83605; 83615; 83735; 83880; 84155; 84157; 84484; 85025; 85379; 85610; 85730; 87040; 87205; 88112; 88305; 88341; 88342; 89051; 93005; 93017; 93306; 94640; 99284; A9270-GY; A9502; A9540; A9558; G0378; J1644; J1650; J1940; J2785; J3475

== ENCOUNTER → 2019-02-26 | Day surgery (SDC) | payer MEDICARE ==
[2019-02-26 14:12] LABS: Body Fluid Source Pleural Fluid
[2019-02-26 14:56] LABS: Body Fluid Mono 22 %; Body Fluid Other Cells 4
--- NOTE | 2019-02-26 15:32 | PRO ---
THORACENTESIS REPORT: DATE OF PROCEDURE: 02/26/19 - [facility] PROCEDURE PERFORMED: Ultrasound-guided thoracentesis on the right side. PRE-PROCEDURAL DIAGNOSIS: Large right pleural effusion for symptomatic benefit. ANESTHESIA: Local anesthesia with 1% lidocaine. DESCRIPTION OF PROCEDURE: Informed consent was obtained from the patient prior to the procedure after all the risks and benefits were thoroughly explained. The patient has been having worsening shortness of breath. He has been having recurrent pleural effusion, which is being worked up. He has appointment to see Thoracic Surgery next week for pleural biopsy. Time-out was performed and agreed on by attending staff prior to the procedure. A portable ultrasound was utilized at bedside to localize the fluid. Appropriate measures were captured. All barrier techniques and aseptic precautions were followed up. The patient was sitting up and leaning forward during the procedure. A CareFusion 8-Maltese thoracentesis catheter was then utilized for the procedure. The area was disinfected with chlorhexidine. Sterile drape was placed. 1% lidocaine was then instilled intradermally subcutaneously down into the pleural space taking precautions. A #11 scalpel blade was used to make stab incision. CareFusion 8- [place]ese thoracentesis catheter was subsequently inserted under manual suction taking precautions. Catheter was left in place and needle was removed. Two litres of dark yellow fluid was removed under manual suction. Catheter was then removed and sterile Band-Aid was applied. The patient tolerated the procedure well. He had mild coughing at the end of the procedure. Specimen was sent to the lab for cytological, biochemical, and microbiological testing. [id number]/CPS #: [id number] MTDD
[2019-02-27 13:24] LABS: Lactate Dehydrogenase, BF 167 U/L
--- NOTE | 2019-03-14 08:04 | HP ---
H&P (Free Text) History and Physical: Updated history and physical for procedure-thoracentesis 73-year-old male, current smoker with history of COPD, obstructive sleep apnea, chronic kidney, history of head and neck cancer status post surgery, radiation and chemotherapy with recurrent pleural effusion since 2016. Patient underwent thoracentesis on 10/22/2018 with removal of 1.6 L of pleural fluid, pleural fluid characteristics consistent with exudative effusion, cytology was negative. Patient was readmitted to the hospital on 11/04/2018 for recurrent pleural effusion, underwent thoracentesis again, cytology negative for malignancy. Patient had exudative effusion. Pt had recurrence, underwent thoracentesis again. Pt was referred to thoracic surgery for biopsy of pleura given recurrent effusion. Pt continued to have worsening effusion and while awaiting surgical procedure and was scheduled for therapeutic thoracentesis. Pt reported worsening WEST. No cough, also reported wt loss PMHx: Heart Disease [place] Colon Cancer Hypothyroidism SCC tonsil 2013 Surgical Hx: Tonsillectomy, Thryoidectomy, bowel resection for colon cancer Meds: Amoxicillin 500 mg 1 by mouth three times a day Saline Nasal [place] 0.65 % i squirt into both nostrils daily or as needed Nitroglycerin Lingual 0.4 MG/[place] as needed Metoprolol Tartrate 50 mg 1 po bid Aspirin 81 mg 1 po qd Atorvastatin Calcium 10 mg daily Dutasteride 0.5 mg 1 by mouth every day Allergies: Cipro 06/30/14 Cyproheptadine 09/06/16 Spironolactone 09/06/16 - hyperkalemia Lisinopril 09/06/16 - hyperkalemia FH: Mother- CHF Brother-CAD . Father: Bladder Cancer, Prostate Cancer, . Mother: NH, 64years ago. SH: Marital: .Lives With: .Occupation: Jeweler. Personal Habits: Smoking: Light tobacco smoker (10 or fewer cigarettes/day) - 4 -5 per day all his life.Cigarette Use: smokes about 1/3 ppd..Alcohol: Occasionally consumes alcohol - 1 drink a week .Drug Use: Denies Drug Use.Daily Caffeine: Consumes on average 1 cup of regular coffee per day.Exercise Type: Does not exercise. O/E: Pt in NADHEENT: PERRLA Lungs: Decreased breath sounds on right CVS: S1, S2+, tachycardic Abd: Soft, BS+ Ext: No edema Skin: NO rash Neuro: No focal deficits Labs: no new labs I/R; 73 y o m with recurrent pleural effusion Pt scheduled for therapeutic thoracentesis Procedure was discussed in detail Associated risks including risk of PTX was discussed Pt agreeable to procedure
== END | disposition home or self-care (01) ==
LOC: OR 12:08
PROVIDERS: ATTEND Internal Medicine
DX: J90 Pleural effusion, not elsewhere classified (principal); R06.02 Shortness of breath
CPT/HCPCS: 32554; 36415; 76604; 82945; 83615; 83986; 84157; 87070; 87116; 87205; 87206; 88112; 88305; 89051

== ENCOUNTER 2021-10-25 09:14 | Inpatient (IN) ==
[2021-10-25 10:51] LABS: ABS Lymphocytes 0.3 10^3/ul (1.0-4.8); ABS Monocytes 0.5 10^3/ul (0-0.8); ABS Neutrophils 5.4 10^3/ul (1.5-7.7); Eosinophil % 0.2 %; Hematocrit 26 % (42-52); Hemoglobin 8.7 g/dL (14.0-18.0); Lymphocyte % 4.9 %; Mean Corpuscular HGB Conc 33 g/dL (31-36); Mean Corpuscular Hemoglobin 29 pg (27-31); Mean Corpuscular Volume 87 fL (80-94); Mean Platelet Volume 8.8 fL (7.4-10.4); Platelet Count 220 10^3/uL (150-450); Red Blood Count 3.03 10^6 /uL (4.18-5.48); Red Cell Distribution Width 19 % (10-15); White Blood Count 6.2 10^3/uL (3.5-10.8)
[2021-10-25 11:18] LABS: Calcium 8.5 mg/dL (8.6-10.3); Magnesium 1.7 mg/dL (1.9-2.7); eGFR CKD-EPI 55.1 (>60)
[2021-10-25 11:19] LABS: Potassium 5.1 mmol/L (3.5-5.0)
[2021-10-25] MEDS ORDERED: Levalbuterol 1.25MG/0.5ML NEB.SOL INH ONE (12:07)
[2021-10-25 12:24] LABS: High Sensitivity Troponin 1 Hr 9 pg/mL (<20)
[2021-10-25] MEDS ORDERED: Iodixanol (CONTRAST) 320 MG/ML 100 ML SDV IV ONE (12:25)
[2021-10-25 12:30] LABS: PCO2 Arterial 44 mmHg (35-45)
[2021-10-25 12:35] LABS: PO2 Arterial 54 mmHg (80-100)
[2021-10-25 12:46] LABS: Phosphorus 3.2 mg/dL (2.5-5.0); Uric Acid 9.2 mg/dL (4.4-7.6)
[2021-10-25 13:21] LABS: C Reactive Protein 80.03 mg/L (<8.01)
[2021-10-25 13:31] LABS: TSH Ultra Thyroid Stim Horm 0.55 mcIU/mL (0.34-5.60)
[2021-10-25] MEDS ORDERED: Piperacillin/Tazobac ADVAN 3.375 GM in NS 0.9% 100 ml BAG 100 ML IV ONE (13:53)
[2021-10-25] MEDS ORDERED: Albuterol/Ipratropium NEB.SOL (2.5/0.5 MG) 3 ML NEB.SOLN INH PRN (13:55)
[2021-10-25] MEDS ORDERED: Zosyn per Pharmacy NOTE FOLLOW UP SCH (14:00)
[2021-10-25] MEDS ORDERED: Azithromycin 500 mg/250 ml NS 500 MG/250 ML BAG IVPB SCH (16:00)
[2021-10-25 16:45] LABS: INR 1.42 (0.86-1.15)
[2021-10-25] MEDS ORDERED: Magnesium Sulfate 2 gm BAG 2 GM/50 ML BAG IVPB ONE (16:55)
[2021-10-25] MEDS: Heparin 5000 UNITS/ML 1 mL VIAL SUBCUT SCH ×2 (16:57→22:46)
[2021-10-25 17:04] LABS: ALT 7 U/L (7-52); Albumin 2.5 g/dL (3.2-5.2); Albumin/Globulin Ratio 0.6 (1-3); Alkaline Phosphatase 43 U/L (35-149); Globulin 3.9 g/dL (2-4); Total Protein 6.4 g/dL (6.4-8.9)
[2021-10-25 17:49] LABS: Direct Bilirubin Redraw 0.1 mg/dL (0.03-0.18)
[2021-10-25] MEDS: Linezolid 600 MG IVPREMIX(*) 600 MG/300 ML BAG IVPB SCH (18:17)
[2021-10-25] MEDS: ZOSYN 3.375 GM Q8H per EXTENDED INFUSION IV SCH (19:05)
[2021-10-25] MEDS: methylPREDNISolone SOD SUCC 125 mg 2 ML VIAL IV SCH (19:37)
[2021-10-26] MEDS: ZOSYN 3.375 GM Q8H per EXTENDED INFUSION IV SCH ×3 (02:21→17:46)
[2021-10-26] MEDS: Linezolid 600 MG IVPREMIX(*) 600 MG/300 ML BAG IVPB SCH (04:08)
[2021-10-26 05:19] LABS: Hematocrit 24 % (42-52); Hemoglobin 7.8 g/dL (14.0-18.0); Mean Corpuscular HGB Conc 33 g/dL (31-36); Mean Corpuscular Hemoglobin 28 pg (27-31); Mean Corpuscular Volume 86 fL (80-94); Mean Platelet Volume 8.7 fL (7.4-10.4); Platelet Count 168 10^3/uL (150-450); Red Blood Count 2.75 10^6 /uL (4.18-5.48); Red Cell Distribution Width 18 % (10-15)
[2021-10-26 05:30] LABS: Fibrinogen 417.3 mg/dL (110.8-404.3); INR 1.45 (0.86-1.15)
[2021-10-26 05:53] LABS: ABS Lymphocytes 0.2 10^3/ul (1.0-4.8); ABS Monocytes 0.1 10^3/ul (0-0.8); ABS Neutrophils 7.6 10^3/ul (1.5-7.7); Lymphocyte % 2.3 %
[2021-10-26 05:53] LABS: Magnesium 2.3 mg/dL (1.9-2.7)
[2021-10-26] MEDS: Heparin 5000 UNITS/ML 1 mL VIAL SUBCUT SCH ×3 (05:56→22:00)
[2021-10-26 06:43] LABS: eGFR CKD-EPI 43.4 (>60)
[2021-10-26 06:46] LABS: Potassium 5.6 mmol/L (3.5-5.0)
[2021-10-26 08:08] LABS: Phosphorus 4.4 mg/dL (2.5-5.0); Uric Acid 7.3 mg/dL (4.4-7.6)
[2021-10-26] MEDS ORDERED: SODIUM ZIRCONIUM CYCLOSILICATE 10 GM PACKET PO ONE (08:19)
[2021-10-26] MEDS: methylPREDNISolone SOD SUCC 125 mg 2 ML VIAL IV SCH (09:26)
[2021-10-26 13:58] LABS: ABS Lymphocytes 0.2 10^3/ul (1.0-4.8); ABS Monocytes 0.2 10^3/ul (0-0.8); ABS Neutrophils 8.3 10^3/ul (1.5-7.7); Hematocrit 24 % (42-52); Hemoglobin 7.9 g/dL (14.0-18.0); Lymphocyte % 1.9 %; Mean Corpuscular HGB Conc 33 g/dL (31-36); Mean Corpuscular Hemoglobin 29 pg (27-31); Mean Corpuscular Volume 88 fL (80-94); Mean Platelet Volume 9.1 fL (7.4-10.4); Platelet Count 192 10^3/uL (150-450); Red Blood Count 2.72 10^6 /uL (4.18-5.48); Red Cell Distribution Width 19 % (10-15); White Blood Count 8.6 10^3/uL (3.5-10.8)
[2021-10-26 14:27] LABS: Albumin 2.7 g/dL (3.2-5.2); Albumin/Globulin Ratio 0.7 (1-3); Calcium 7.8 mg/dL (8.6-10.3); Globulin 4.1 g/dL (2-4); Potassium 4.8 mmol/L (3.5-5.0); Total Bilirubin 0.4 mg/dL (0.2-1.0); Total Protein 6.8 g/dL (6.4-8.9); eGFR CKD-EPI 40.2 (>60)
[2021-10-26] MEDS ORDERED: Ondansetron 4 mg VIAL 2 MG/ML 2 ml VIAL ONE (18:26)
[2021-10-26] MEDS: Ondansetron 4 mg VIAL 2 MG/ML 2 ml VIAL IV PRN (18:33)
[2021-10-27] MEDS: ZOSYN 3.375 GM Q8H per EXTENDED INFUSION IV SCH ×3 (02:12→18:28)
[2021-10-27] MEDS: Heparin 5000 UNITS/ML 1 mL VIAL SUBCUT SCH ×3 (05:29→20:36)
[2021-10-27 05:31] LABS: ABS Lymphocytes 0.2 10^3/ul (1.0-4.8); ABS Monocytes 0.3 10^3/ul (0-0.8); ABS Neutrophils 9.3 10^3/ul (1.5-7.7); Hematocrit 23 % (42-52); Hemoglobin 7.4 g/dL (14.0-18.0); Lymphocyte % 1.7 %; Mean Corpuscular HGB Conc 33 g/dL (31-36); Mean Corpuscular Hemoglobin 29 pg (27-31); Mean Corpuscular Volume 88 fL (80-94); Mean Platelet Volume 8.5 fL (7.4-10.4); Platelet Count 193 10^3/uL (150-450); Red Blood Count 2.59 10^6 /uL (4.18-5.48); Red Cell Distribution Width 19 % (10-15); White Blood Count 9.7 10^3/uL (3.5-10.8)
[2021-10-27 05:36] LABS: INR 1.27 (0.86-1.15)
[2021-10-27 05:55] LABS: Magnesium 2.3 mg/dL (1.9-2.7); Phosphorus 5.7 mg/dL (2.5-5.0); Uric Acid 6.7 mg/dL (4.4-7.6)
[2021-10-27 14:06] LABS: Calcium 7.5 mg/dL (8.6-10.3)
[2021-10-27 14:11] LABS: eGFR CKD-EPI 29.6 (>60)
[2021-10-28] MEDS: ZOSYN 3.375 GM Q8H per EXTENDED INFUSION IV SCH ×3 (03:16→18:35)
[2021-10-28] MEDS: Heparin 5000 UNITS/ML 1 mL VIAL SUBCUT SCH ×3 (06:01→20:33)
[2021-10-28 08:04] LABS: ABS Lymphocytes 0.3 10^3/ul (1.0-4.8); ABS Monocytes 0.6 10^3/ul (0-0.8); ABS Neutrophils 9.5 10^3/ul (1.5-7.7); Hematocrit 24 % (42-52); Hemoglobin 7.9 g/dL (14.0-18.0); Lymphocyte % 3.3 %; Mean Corpuscular HGB Conc 33 g/dL (31-36); Mean Corpuscular Hemoglobin 29 pg (27-31); Mean Corpuscular Volume 89 fL (80-94); Platelet Count 221 10^3/uL (150-450); Red Blood Count 2.72 10^6 /uL (4.18-5.48); Red Cell Distribution Width 19 % (10-15); White Blood Count 10.5 10^3/uL (3.5-10.8)
[2021-10-28 08:39] LABS: Calcium 7.8 mg/dL (8.6-10.3); Magnesium 2.2 mg/dL (1.9-2.7); Phosphorus 4.6 mg/dL (2.5-5.0); Uric Acid 6.6 mg/dL (4.4-7.6); eGFR CKD-EPI 24.3 (>60)
[2021-10-28 08:42] LABS: Potassium 5.1 mmol/L (3.5-5.0)
[2021-10-28] MEDS ORDERED: Lactated Ringers 1000 ml BAG 1,000 ML IV SCH (10:00)
[2021-10-28] MEDS ORDERED: NS 0.9% 100 ml BAG 100 ML ONE (20:27)
[2021-10-28] MEDS: Lactated Ringers 1000 ml BAG 1,000 ML IV SCH (23:03)
[2021-10-29 07:48] LABS: ABS Lymphocytes 0.3 10^3/ul (1.0-4.8); ABS Monocytes 0.3 10^3/ul (0-0.8); ABS Neutrophils 6.2 10^3/ul (1.5-7.7); Hematocrit 26 % (42-52); Hemoglobin 8.3 g/dL (14.0-18.0); Lymphocyte % 4.4 %; Mean Corpuscular HGB Conc 32 g/dL (31-36); Mean Corpuscular Hemoglobin 29 pg (27-31); Mean Corpuscular Volume 89 fL (80-94); Mean Platelet Volume 8.4 fL (7.4-10.4); Platelet Count 215 10^3/uL (150-450); Red Blood Count 2.89 10^6 /uL (4.18-5.48); Red Cell Distribution Width 18 % (10-15); White Blood Count 6.9 10^3/uL (3.5-10.8)
[2021-10-29 08:08] LABS: Calcium 8.2 mg/dL (8.6-10.3); Phosphorus 3.4 mg/dL (2.5-5.0); Potassium 5.1 mmol/L (3.5-5.0); Uric Acid 5.7 mg/dL (4.4-7.6); eGFR CKD-EPI 30.1 (>60)
[2021-10-29] MEDS: Aztreonam 1 GM in NS 0.9% 50 ML 50 ML IV SCH ×2 (09:31→16:53)
[2021-10-29 13:32] LABS: Lactate Dehydrogenase, BF 46 U/L
[2021-10-29] MEDS: Lactated Ringers 1000 ml BAG 1,000 ML IV SCH (14:38)
[2021-10-29] MEDS ORDERED: Albuterol HFA INHALER 8 gm MDI INH PRN (15:17)
[2021-10-30] MEDS: Aztreonam 1 GM in NS 0.9% 50 ML 50 ML IV SCH ×2 (01:40→10:51)
[2021-10-30 06:08] LABS: ABS Lymphocytes 0.2 10^3/ul (1.0-4.8); ABS Monocytes 0.2 10^3/ul (0-0.8); Hematocrit 24 % (42-52); Hemoglobin 7.6 g/dL (14.0-18.0); Lymphocyte % 3.3 %; Mean Corpuscular HGB Conc 32 g/dL (31-36); Mean Corpuscular Hemoglobin 28 pg (27-31); Mean Corpuscular Volume 88 fL (80-94); Mean Platelet Volume 8.4 fL (7.4-10.4); Platelet Count 196 10^3/uL (150-450); Red Blood Count 2.68 10^6 /uL (4.18-5.48); Red Cell Distribution Width 19 % (10-15); White Blood Count 5.4 10^3/uL (3.5-10.8)
[2021-10-30 06:44] LABS: Calcium 8.3 mg/dL (8.6-10.3); Magnesium 1.8 mg/dL (1.9-2.7); Phosphorus 3.1 mg/dL (2.5-5.0); Uric Acid 5.6 mg/dL (4.4-7.6); eGFR CKD-EPI 43.4 (>60)
[2021-10-30 06:45] LABS: Potassium 5.2 mmol/L (3.5-5.0)
[2021-10-30] MEDS ORDERED: Magnesium Sulfate IV 3 GM in NS 0.9% 100 ml BAG 100 ML IVPB ONE (08:26)
[2021-10-30] MEDS ORDERED: Magnesium Sulfate 2 GM IV (Premix) IVPB ONE (09:00)
[2021-10-30] MEDS ORDERED: Magnesium Sulfate 1 GM IV 1 GM/100 ML BAG IV ONE (10:00)
[2021-10-30] MEDS ORDERED: Piperacillin/Tazobac ADVAN 3.375 GM in NS 0.9% 100 ml BAG 100 ML IV ONE (10:23)
[2021-10-30] MEDS ORDERED: Zosyn per Pharmacy NOTE FOLLOW UP SCH (11:00)
[2021-10-30] MEDS ORDERED: Iodixanol (CONTRAST) 320 MG/ML 100 ML SDV IV ONE (16:55)
[2021-10-30 17:22] LABS: Activated Partial Thrombo Time 29.4 seconds (26.0-38.0); INR 1.2 (0.86-1.15)
[2021-10-30] MEDS: ZOSYN 3.375 GM Q8H per EXTENDED INFUSION IV SCH (18:06)
[2021-10-30] MEDS: Heparin 5000 UNITS/ML 1 mL VIAL SUBCUT SCH (21:58)
[2021-10-31] MEDS: ZOSYN 3.375 GM Q8H per EXTENDED INFUSION IV SCH ×3 (01:53→18:33)
[2021-10-31] MEDS: Heparin 5000 UNITS/ML 1 mL VIAL SUBCUT SCH ×3 (05:18→21:44)
[2021-10-31 05:43] LABS: ABS Lymphocytes 0.3 10^3/ul (1.0-4.8); ABS Monocytes 0.3 10^3/ul (0-0.8); ABS Neutrophils 4.4 10^3/ul (1.5-7.7); Eosinophil % 0.1 %; Hematocrit 22 % (42-52); Hemoglobin 7.3 g/dL (14.0-18.0); Mean Corpuscular HGB Conc 33 g/dL (31-36); Mean Corpuscular Hemoglobin 29 pg (27-31); Mean Corpuscular Volume 88 fL (80-94); Mean Platelet Volume 8.6 fL (7.4-10.4); Platelet Count 171 10^3/uL (150-450); Red Blood Count 2.56 10^6 /uL (4.18-5.48); Red Cell Distribution Width 18 % (10-15)
[2021-10-31 06:00] LABS: Blood Urea Nitrogen 45 mg/dL (6-24); CO2 Carbon Dioxide 36 mmol/L (22-32); Chloride 103 mmol/L (101-111); Glucose 122 mg/dL (70-100); Magnesium 2.3 mg/dL (1.9-2.7); Phosphorus 3.2 mg/dL (2.5-5.0); Sodium 138 mmol/L (135-145); Uric Acid 5.2 mg/dL (4.4-7.6); eGFR CKD-EPI 41.3 (>60)
[2021-10-31 06:01] LABS: Potassium 5.3 mmol/L (3.5-5.0)
[2021-10-31 18:14] LABS: PCO2 Arterial 70 mmHg (35-45); PO2 Arterial 112 mmHg (80-100)
[2021-10-31 18:54] LABS: Albumin 2.8 g/dL (3.2-5.2); Albumin/Globulin Ratio 0.7 (1-3); Calcium 8.2 mg/dL (8.6-10.3); Globulin 4.1 g/dL (2-4); Magnesium 2.3 mg/dL (1.9-2.7); Total Bilirubin 0.3 mg/dL (0.2-1.0); Total Protein 6.9 g/dL (6.4-8.9); eGFR CKD-EPI 38.3 (>60)
[2021-10-31 18:57] LABS: Potassium 5.1 mmol/L (3.5-5.0)
[2021-10-31 22:34] LABS: PCO2 Arterial 62 mmHg (35-45); PO2 Arterial 65 mmHg (80-100)
[2021-11-01] MEDS: ZOSYN 3.375 GM Q8H per EXTENDED INFUSION IV SCH ×3 (02:15→17:20)
[2021-11-01 05:34] LABS: ABS Lymphocytes 0.3 10^3/ul (1.0-4.8); ABS Monocytes 0.3 10^3/ul (0-0.8); ABS Neutrophils 4.9 10^3/ul (1.5-7.7); Eosinophil % 0.2 %; Hematocrit 23 % (42-52); Hemoglobin 7.3 g/dL (14.0-18.0); Lymphocyte % 5.6 %; Mean Corpuscular HGB Conc 33 g/dL (31-36); Mean Corpuscular Hemoglobin 28 pg (27-31); Mean Corpuscular Volume 87 fL (80-94); Mean Platelet Volume 8.3 fL (7.4-10.4); Platelet Count 167 10^3/uL (150-450); Red Cell Distribution Width 18 % (10-15); White Blood Count 5.6 10^3/uL (3.5-10.8)
[2021-11-01 06:31] LABS: Calcium 8.3 mg/dL (8.6-10.3); Magnesium 2.1 mg/dL (1.9-2.7); eGFR CKD-EPI 40.4 (>60)
[2021-11-01 06:33] LABS: Potassium 5.1 mmol/L (3.5-5.0)
[2021-11-01] MEDS: Heparin 5000 UNITS/ML 1 mL VIAL SUBCUT SCH ×3 (07:13→21:35)
[2021-11-01] MEDS ORDERED: Furosemide 40 mg/4 ml IV VIAL IV SLOW PU ONE (09:51)
[2021-11-01 11:52] LABS: Phosphorus 2.9 mg/dL (2.5-5.0); Uric Acid 5.1 mg/dL (4.4-7.6)
[2021-11-01] MEDS: methylPREDNISolone SOD SUCC 40 mg/ml 1 ml VIAL IV SCH (17:20)
[2021-11-02] MEDS: ZOSYN 3.375 GM Q8H per EXTENDED INFUSION IV SCH ×3 (01:34→17:52)
[2021-11-02 04:54] LABS: ABS Lymphocytes 0.2 10^3/ul (1.0-4.8); ABS Monocytes 0.1 10^3/ul (0-0.8); ABS Neutrophils 2.9 10^3/ul (1.5-7.7); Eosinophil % 0.1 %; Hematocrit 21 % (42-52); Hemoglobin 7.1 g/dL (14.0-18.0); Lymphocyte % 5.6 %; Mean Corpuscular HGB Conc 33 g/dL (31-36); Mean Corpuscular Hemoglobin 29 pg (27-31); Mean Corpuscular Volume 87 fL (80-94); Mean Platelet Volume 8.8 fL (7.4-10.4); Platelet Count 149 10^3/uL (150-450); Red Blood Count 2.44 10^6 /uL (4.18-5.48); Red Cell Distribution Width 19 % (10-15); White Blood Count 3.1 10^3/uL (3.5-10.8)
[2021-11-02 05:14] LABS: Calcium 8.2 mg/dL (8.6-10.3); Magnesium 1.9 mg/dL (1.9-2.7); eGFR CKD-EPI 34.6 (>60)
[2021-11-02 05:19] LABS: Potassium 5.3 mmol/L (3.5-5.0)
[2021-11-02] MEDS: Heparin 5000 UNITS/ML 1 mL VIAL SUBCUT SCH ×3 (05:44→20:11)
[2021-11-02] MEDS ORDERED: Magnesium Sulfate IV 1GM/100ML 1 GM/100 ML BAG IV ONE (07:40)
[2021-11-02] MEDS: methylPREDNISolone SOD SUCC 40 mg/ml 1 ml VIAL IV SCH (08:09)
[2021-11-02] MEDS ORDERED: Furosemide 40 mg/4 ml IV VIAL IV SLOW PU ONE (09:51)
[2021-11-02 11:39] LABS: PO2 Arterial 88 mmHg (80-100)
[2021-11-02 11:42] LABS: PCO2 Arterial 77 mmHg (35-45)
[2021-11-02] MEDS ORDERED: Lactated Ringers 500 ml BAG 500 ML IV SCH (19:00)
[2021-11-02] MEDS ORDERED: NS 0.9% 100 ml BAG 100 ML ONE (20:03)
[2021-11-02 21:50] LABS: PO2 Arterial 106 mmHg (80-100)
[2021-11-02 21:51] LABS: PCO2 Arterial 78 mmHg (35-45)
[2021-11-03] MEDS: ZOSYN 3.375 GM Q8H per EXTENDED INFUSION IV SCH ×3 (01:58→17:58)
[2021-11-03] MEDS ORDERED: NS 0.9% 100 ml BAG 100 ML ONE (03:06)
[2021-11-03 04:38] LABS: ABS Lymphocytes 0.3 10^3/ul (1.0-4.8); ABS Monocytes 0.4 10^3/ul (0-0.8); Hematocrit 23 % (42-52); Hemoglobin 7.4 g/dL (14.0-18.0); Lymphocyte % 7.4 %; Mean Corpuscular HGB Conc 32 g/dL (31-36); Mean Corpuscular Hemoglobin 29 pg (27-31); Mean Corpuscular Volume 88 fL (80-94); Mean Platelet Volume 8.7 fL (7.4-10.4); Nucleated Red Blood Cells % 0.1; Platelet Count 143 10^3/uL (150-450); Red Cell Distribution Width 19 % (10-15); White Blood Count 3.8 10^3/uL (3.5-10.8)
[2021-11-03 04:44] LABS: PO2 Arterial 117 mmHg (80-100)
[2021-11-03 04:48] LABS: PCO2 Arterial 72 mmHg (35-45)
[2021-11-03 05:08] LABS: Calcium 8.2 mg/dL (8.6-10.3); Magnesium 2.1 mg/dL (1.9-2.7); eGFR CKD-EPI 31.5 (>60)
[2021-11-03 05:16] LABS: Potassium 5.2 mmol/L (3.5-5.0)
[2021-11-03] MEDS: Heparin 5000 UNITS/ML 1 mL VIAL SUBCUT SCH ×2 (05:49→16:49)
[2021-11-03] MEDS ORDERED: Lactated Ringers 500 ml BAG 500 ML IV SCH (09:00)
[2021-11-03 10:08] LABS: C Reactive Protein 19.84 mg/L (<8.01)
[2021-11-03] MEDS: methylPREDNISolone SOD SUCC 40 mg/ml 1 ml VIAL IV SCH (10:20)
[2021-11-03] MEDS ORDERED: NS 0.9% 500 ml BAG 500 ML IV ONE (12:05)
[2021-11-04] MEDS: ZOSYN 3.375 GM Q8H per EXTENDED INFUSION IV SCH ×3 (04:22→18:38)
[2021-11-04 05:05] LABS: ABS Lymphocytes 0.2 10^3/ul (1.0-4.8); ABS Monocytes 0.3 10^3/ul (0-0.8); ABS Neutrophils 2.1 10^3/ul (1.5-7.7); Hematocrit 21 % (42-52); Hemoglobin 6.5 g/dL (14.0-18.0); Lymphocyte % 7.9 %; Mean Corpuscular HGB Conc 32 g/dL (31-36); Mean Corpuscular Hemoglobin 28 pg (27-31); Mean Corpuscular Volume 89 fL (80-94); Mean Platelet Volume 8.5 fL (7.4-10.4); Nucleated Red Blood Cells % 0.2; Platelet Count 122 10^3/uL (150-450); Red Cell Distribution Width 19 % (10-15); White Blood Count 2.6 10^3/uL (3.5-10.8)
[2021-11-04 05:22] LABS: INR 1.22 (0.86-1.15)
[2021-11-04 05:39] LABS: eGFR CKD-EPI 32.9 (>60)
[2021-11-04] MEDS ORDERED: Lactated Ringers 1000 ml BAG 1,000 ML IV SCH ×2 (06:00)
[2021-11-04] MEDS ORDERED: Buffered Lidocaine 1% SYRIN 1 ml INTRADERM ONE ×2 (06:00)
[2021-11-04] MEDS: methylPREDNISolone SOD SUCC 40 mg/ml 1 ml VIAL IV SCH (09:15)
[2021-11-04] MEDS ORDERED: Ondansetron 4 mg VIAL 2 MG/ML 2 ml VIAL ONE (11:37)
[2021-11-04] MEDS ORDERED: Propofol 10 MG/ML 20 ML BTL ONE (11:37)
[2021-11-04] MEDS ORDERED: Dexamethasone IV 4 MG/ML VIAL 1 ml VIAL ONE (11:37)
[2021-11-04] MEDS ORDERED: Metoclopramide 5 MG/ML VIAL (10 mg) ONE (11:37)
[2021-11-04] MEDS ORDERED: fentaNYL 100 mcg/2 ml 50 MCG/ML VIAL ONE (11:37)
[2021-11-04] MEDS ORDERED: Lidocaine 2% PF 5 ML VIAL ONE (11:37)
[2021-11-04] MEDS ORDERED: Benzocaine/Butamben/Tetracain (CETACAINE - SINGLE USE) 5 gm TOPICAL ONE (11:42)
[2021-11-04] MEDS ORDERED: Esmolol 10 MG/ML 10 ML (100 mg) ONE (13:21)
[2021-11-04] MEDS ORDERED: EPHEDrine (Pressors) 50 MG/ML VIAL ONE (13:21)
[2021-11-04 15:15] LABS: Hematocrit 25 % (42-52)
[2021-11-04] MEDS: Heparin 5000 UNITS/ML 1 mL VIAL SUBCUT SCH (21:35)
[2021-11-05] MEDS: ZOSYN 3.375 GM Q8H per EXTENDED INFUSION IV SCH ×2 (01:42→11:00)
[2021-11-05 04:17] LABS: ABS Lymphocytes 0.2 10^3/ul (1.0-4.8); ABS Monocytes 0.3 10^3/ul (0-0.8); ABS Neutrophils 4.1 10^3/ul (1.5-7.7); Eosinophil % 0.1 %; Hematocrit 29 % (42-52); Hemoglobin 9.1 g/dL (14.0-18.0); Lymphocyte % 3.8 %; Mean Corpuscular HGB Conc 31 g/dL (31-36); Mean Corpuscular Hemoglobin 29 pg (27-31); Mean Corpuscular Volume 91 fL (80-94); Mean Platelet Volume 9.3 fL (7.4-10.4); Nucleated Red Blood Cells % 0.1; Platelet Count 172 10^3/uL (150-450); Red Cell Distribution Width 19 % (10-15); White Blood Count 4.6 10^3/uL (3.5-10.8)
[2021-11-05 04:49] LABS: Magnesium 2.2 mg/dL (1.9-2.7); eGFR CKD-EPI 23.1 (>60)
[2021-11-05 04:52] LABS: Potassium 5.9 mmol/L (3.5-5.0)
[2021-11-05] MEDS: Heparin 5000 UNITS/ML 1 mL VIAL SUBCUT SCH ×3 (05:58→21:07)
[2021-11-05] MEDS ORDERED: Lactated Ringers 500 ml BAG 500 ML IV ONE (06:16)
[2021-11-05] MEDS ORDERED: SODIUM ZIRCONIUM CYCLOSILICATE 10 GM PACKET PO ONE ×2 (08:00→17:30)
[2021-11-05 09:26] LABS: PO2 Arterial 154 mmHg (80-100)
[2021-11-05 09:43] LABS: PCO2 Arterial 110 mmHg (35-45)
[2021-11-05] MEDS: methylPREDNISolone SOD SUCC 40 mg/ml 1 ml VIAL IV SCH (11:00)
[2021-11-05 12:56] LABS: PCO2 Arterial 81 mmHg (35-45)
[2021-11-05 12:57] LABS: PO2 Arterial < 38 mmHg (80-100)
[2021-11-05 16:56] LABS: Calcium 7.5 mg/dL (8.6-10.3); eGFR CKD-EPI 18.7 (>60)
[2021-11-05 16:57] LABS: Potassium 5.5 mmol/L (3.5-5.0)
[2021-11-05] MEDS ORDERED: Furosemide 40 mg/4 ml IV VIAL IV SLOW PU ONE (17:40)
[2021-11-06 04:29] LABS: ABS Lymphocytes 0.2 10^3/ul (1.0-4.8); ABS Monocytes 0.4 10^3/ul (0-0.8); ABS Neutrophils 3.3 10^3/ul (1.5-7.7); Hematocrit 23 % (42-52); Hemoglobin 7.5 g/dL (14.0-18.0); Lymphocyte % 6.4 %; Mean Corpuscular HGB Conc 32 g/dL (31-36); Mean Corpuscular Hemoglobin 29 pg (27-31); Mean Corpuscular Volume 90 fL (80-94); Mean Platelet Volume 9.9 fL (7.4-10.4); Nucleated Red Blood Cells % 0.1; Platelet Count 139 10^3/uL (150-450); Red Blood Count 2.61 10^6 /uL (4.18-5.48); Red Cell Distribution Width 19 % (10-15); White Blood Count 3.9 10^3/uL (3.5-10.8)
[2021-11-06 04:54] LABS: Blood Urea Nitrogen 81 mg/dL (6-24); CO2 Carbon Dioxide 32 mmol/L (22-32); Calcium 7.5 mg/dL (8.6-10.3); Chloride 103 mmol/L (101-111); Glucose 120 mg/dL (70-100); Sodium 139 mmol/L (135-145); Uric Acid 7.8 mg/dL (4.4-7.6); eGFR CKD-EPI 18.5 (>60)
[2021-11-06 05:01] LABS: Anion Gap 4 mmol/L (2-11)
[2021-11-06 06:09] LABS: PCO2 Arterial 63 mmHg (35-45); PO2 Arterial 139 mmHg (80-100)
[2021-11-06] MEDS: Heparin 5000 UNITS/ML 1 mL VIAL SUBCUT SCH ×2 (06:16→14:18)
[2021-11-06 07:30] LABS: Potassium Redraw 4.9 mmol/L (3.5-5.0)
[2021-11-06] MEDS: NORMOSOL-R pH 7.4 1000 mL BAG 1,000 ML IV SCH ×2 (13:30→23:12)
[2021-11-06] MEDS ORDERED: Haloperidol 5 mg/ml SDV IV/IM 5 MG/ML AMP IV SLOW PU PRN (15:44)
[2021-11-07] MEDS: Heparin 5000 UNITS/ML 1 mL VIAL SUBCUT SCH ×4 (02:12→20:28)
[2021-11-07 06:46] LABS: ABS Lymphocytes 0.3 10^3/ul (1.0-4.8); ABS Monocytes 0.2 10^3/ul (0-0.8); ABS Neutrophils 2.7 10^3/ul (1.5-7.7); Eosinophil % 0.1 %; Hematocrit 22 % (42-52); Hemoglobin 7.3 g/dL (14.0-18.0); Lymphocyte % 9.3 %; Mean Corpuscular HGB Conc 33 g/dL (31-36); Mean Corpuscular Hemoglobin 29 pg (27-31); Mean Corpuscular Volume 88 fL (80-94); Mean Platelet Volume 9.4 fL (7.4-10.4); Nucleated Red Blood Cells % 0.1; Platelet Count 107 10^3/uL (150-450); Red Blood Count 2.49 10^6 /uL (4.18-5.48); Red Cell Distribution Width 19 % (10-15); White Blood Count 3.2 10^3/uL (3.5-10.8)
[2021-11-07 07:04] LABS: Calcium 7.3 mg/dL (8.6-10.3); Magnesium 1.9 mg/dL (1.9-2.7); Potassium 4.7 mmol/L (3.5-5.0); eGFR CKD-EPI 19.1 (>60)
[2021-11-07 15:39] LABS: Hematocrit 26 % (42-52); Hemoglobin 8.4 g/dL (14.0-18.0)
[2021-11-07] MEDS: NORMOSOL-R pH 7.4 1000 mL BAG 1,000 ML IV SCH (17:07)
[2021-11-08] MEDS: NORMOSOL-R pH 7.4 1000 mL BAG 1,000 ML IV SCH (03:54)
[2021-11-08 05:16] LABS: ABS Lymphocytes 0.2 10^3/ul (1.0-4.8); ABS Monocytes 0.2 10^3/ul (0-0.8); ABS Neutrophils 2.9 10^3/ul (1.5-7.7); Eosinophil % 0.1 %; Hematocrit 21 % (42-52); Hemoglobin 7.2 g/dL (14.0-18.0); Mean Corpuscular HGB Conc 34 g/dL (31-36); Mean Corpuscular Hemoglobin 29 pg (27-31); Mean Corpuscular Volume 87 fL (80-94); Mean Platelet Volume 9.3 fL (7.4-10.4); Nucleated Red Blood Cells % 0.1; Platelet Count 100 10^3/uL (150-450); Red Blood Count 2.45 10^6 /uL (4.18-5.48); Red Cell Distribution Width 18 % (10-15); White Blood Count 3.3 10^3/uL (3.5-10.8)
[2021-11-08] MEDS: Heparin 5000 UNITS/ML 1 mL VIAL SUBCUT SCH ×3 (05:33→22:49)
[2021-11-08 06:16] LABS: Albumin 2.4 g/dL (3.2-5.2); Albumin/Globulin Ratio 0.7 (1-3); Calcium 7.4 mg/dL (8.6-10.3); Globulin 3.5 g/dL (2-4); Magnesium 1.9 mg/dL (1.9-2.7); Total Bilirubin 0.4 mg/dL (0.2-1.0); Total Protein 5.9 g/dL (6.4-8.9); eGFR CKD-EPI 21.8 (>60)
[2021-11-08 06:23] LABS: Potassium 5.6 mmol/L (3.5-5.0)
[2021-11-08] MEDS ORDERED: SODIUM ZIRCONIUM CYCLOSILICATE 10 GM PACKET PO ONE (08:00)
[2021-11-08] MEDS ORDERED: Magnesium Sulfate 2 gm BAG 2 GM/50 ML BAG IVPB ONE (08:39)
[2021-11-08 09:37] LABS: PCO2 Arterial 59 mmHg (35-45)
[2021-11-08 09:38] LABS: PO2 Arterial 131 mmHg (80-100)
[2021-11-09 01:20] LABS: Calcium 7.4 mg/dL (8.6-10.3); Magnesium 2.2 mg/dL (1.9-2.7); eGFR CKD-EPI 23.9 (>60)
[2021-11-09 01:26] LABS: Potassium 5.1 mmol/L (3.5-5.0)
[2021-11-09 04:52] LABS: ABS Lymphocytes 0.3 10^3/ul (1.0-4.8); ABS Monocytes 0.4 10^3/ul (0-0.8); ABS Neutrophils 4.4 10^3/ul (1.5-7.7); Eosinophil % 0.1 %; Hematocrit 23 % (42-52); Hemoglobin 7.6 g/dL (14.0-18.0); Lymphocyte % 6.1 %; Mean Corpuscular HGB Conc 32 g/dL (31-36); Mean Corpuscular Hemoglobin 29 pg (27-31); Mean Corpuscular Volume 89 fL (80-94); Mean Platelet Volume 9.7 fL (7.4-10.4); Platelet Count 114 10^3/uL (150-450); Red Blood Count 2.62 10^6 /uL (4.18-5.48); Red Cell Distribution Width 19 % (10-15); White Blood Count 5.1 10^3/uL (3.5-10.8)
[2021-11-09 05:13] LABS: Albumin 2.5 g/dL (3.2-5.2); Albumin/Globulin Ratio 0.7 (1-3); Calcium 7.5 mg/dL (8.6-10.3); Globulin 3.7 g/dL (2-4); Magnesium 2.2 mg/dL (1.9-2.7); Phosphorus 2.1 mg/dL (2.5-5.0); Total Bilirubin 0.4 mg/dL (0.2-1.0); Total Protein 6.2 g/dL (6.4-8.9); eGFR CKD-EPI 25.2 (>60)
[2021-11-09 05:18] LABS: Potassium 5.1 mmol/L (3.5-5.0)
[2021-11-09] MEDS: Heparin 5000 UNITS/ML 1 mL VIAL SUBCUT SCH ×3 (06:10→21:39)
[2021-11-10] MEDS: Heparin 5000 UNITS/ML 1 mL VIAL SUBCUT SCH ×3 (05:47→21:43)
[2021-11-10] MEDS ORDERED: Furosemide 20 mg/2 ml IV VIAL IV ONE (11:24)
[2021-11-10 21:16] LABS: HIT ELISA 0.063 OD (<0.400); Heparin PF4 Antibody Interp Negative (Negative)
[2021-11-11] MEDS: Heparin 5000 UNITS/ML 1 mL VIAL SUBCUT SCH ×3 (05:29→20:16)
[2021-11-12] MEDS: Heparin 5000 UNITS/ML 1 mL VIAL SUBCUT SCH ×3 (05:47→20:45)
[2021-11-13] MEDS: Heparin 5000 UNITS/ML 1 mL VIAL SUBCUT SCH ×3 (06:05→20:55)
[2021-11-13 07:42] LABS: ABS Lymphocytes 0.4 10^3/ul (1.0-4.8); ABS Monocytes 0.4 10^3/ul (0-0.8); ABS Neutrophils 2.1 10^3/ul (1.5-7.7); Eosinophil % 0.5 %; Hematocrit 22 % (42-52); Lymphocyte % 13.2 %; Mean Corpuscular HGB Conc 32 g/dL (31-36); Mean Corpuscular Hemoglobin 29 pg (27-31); Mean Corpuscular Volume 91 fL (80-94); Mean Platelet Volume 10.6 fL (7.4-10.4); Nucleated Red Blood Cells % 0.1; Platelet Count 100 10^3/uL (150-450); Red Cell Distribution Width 19 % (10-15); White Blood Count 2.9 10^3/uL (3.5-10.8)
[2021-11-13 07:57] LABS: eGFR CKD-EPI 27.7 (>60)
[2021-11-13 08:00] LABS: Potassium 5.8 mmol/L (3.5-5.0)
[2021-11-13] MEDS ORDERED: Furosemide 20 mg/2 ml IV VIAL IV ONE (12:55)
[2021-11-13 19:04] LABS: Calcium 7.8 mg/dL (8.6-10.3); eGFR CKD-EPI 26.3 (>60)
[2021-11-13 19:12] LABS: Potassium 6.2 mmol/L (3.5-5.0)
[2021-11-13] MEDS ORDERED: Patiromer POWDER 8.4 GM PAK PO ONE (20:00)
[2021-11-14 01:45] LABS: Calcium 7.8 mg/dL (8.6-10.3)
[2021-11-14 01:48] LABS: Potassium 6.1 mmol/L (3.5-5.0)
[2021-11-14 01:50] LABS: eGFR CKD-EPI 24.2 (>60)
[2021-11-14] MEDS: Heparin 5000 UNITS/ML 1 mL VIAL SUBCUT SCH ×3 (04:16→21:49)
[2021-11-14 06:19] LABS: ABS Lymphocytes 0.3 10^3/ul (1.0-4.8); ABS Monocytes 0.5 10^3/ul (0-0.8); Eosinophil % 0.4 %; Hematocrit 22 % (42-52); Lymphocyte % 7.4 %; Mean Corpuscular HGB Conc 32 g/dL (31-36); Mean Corpuscular Hemoglobin 29 pg (27-31); Mean Corpuscular Volume 91 fL (80-94); Mean Platelet Volume 10.6 fL (7.4-10.4); Nucleated Red Blood Cells % 0.3; Platelet Count 103 10^3/uL (150-450); Red Blood Count 2.39 10^6 /uL (4.18-5.48); Red Cell Distribution Width 20 % (10-15); White Blood Count 3.7 10^3/uL (3.5-10.8)
[2021-11-14 06:36] LABS: Calcium 8.1 mg/dL (8.6-10.3); eGFR CKD-EPI 25.4 (>60)
[2021-11-14] MEDS ORDERED: Furosemide 40 mg/4 ml IV VIAL IV SLOW PU ONE (10:13)
[2021-11-14 12:57] LABS: Calcium 8.3 mg/dL (8.6-10.3); eGFR CKD-EPI 25.2 (>60)
[2021-11-14 12:59] LABS: Potassium 5.9 mmol/L (3.5-5.0)
[2021-11-14 16:58] LABS: PCO2 Arterial 64 mmHg (35-45); PO2 Arterial 96 mmHg (80-100)
[2021-11-14] MEDS: Furosemide 100 mg/10 ml IV 100 MG in NS 0.9% 100 ml BAG 90 ML IV SCH ×2 (18:46→19:45)
[2021-11-14] MEDS ORDERED: Furosemide IV 100 MG in NS 0.9% 100 ML TOTAL IV ONE (19:00)
[2021-11-14 19:17] LABS: Urine Appearance Clear; Urine Bilirubin Negative (Negative); Urine Blood 2+ (Negative); Urine Color Straw; Urine Glucose Negative (Negative); Urine Ketones Negative (Negative); Urine Nitrite Negative (Negative); Urine Protein Negative (Negative); Urine Urobilinogen Negative (Negative)
[2021-11-14 19:24] LABS: Urine Bacteria Absent (Absent); Urine Red Blood Cell 1+(3-5/hpf) (Absent); Urine Squamous Epithelial Cell Present (Absent); Urine White Blood Cell Absent (Absent)
[2021-11-14] MEDS ORDERED: Furosemide 40 mg/4 ml IV VIAL IV SCH (21:00)
[2021-11-15 05:00] LABS: ABS Lymphocytes 0.4 10^3/ul (1.0-4.8); ABS Monocytes 0.5 10^3/ul (0-0.8); ABS Neutrophils 2.4 10^3/ul (1.5-7.7); Eosinophil % 0.2 %; Hematocrit 20 % (42-52); Hemoglobin 6.6 g/dL (14.0-18.0); Lymphocyte % 11.7 %; Mean Corpuscular HGB Conc 33 g/dL (31-36); Mean Corpuscular Hemoglobin 30 pg (27-31); Mean Corpuscular Volume 89 fL (80-94); Mean Platelet Volume 9.8 fL (7.4-10.4); Nucleated Red Blood Cells % 0.1; Platelet Count 101 10^3/uL (150-450); Red Blood Count 2.24 10^6 /uL (4.18-5.48); Red Cell Distribution Width 19 % (10-15); White Blood Count 3.3 10^3/uL (3.5-10.8)
[2021-11-15] MEDS: Heparin 5000 UNITS/ML 1 mL VIAL SUBCUT SCH ×3 (05:31→20:14)
[2021-11-15 05:58] LABS: Calcium 8.3 mg/dL (8.6-10.3); eGFR CKD-EPI 25.8 (>60)
[2021-11-15 06:01] LABS: Potassium 5.7 mmol/L (3.5-5.0)
[2021-11-15] MEDS ORDERED: SODIUM ZIRCONIUM CYCLOSILICATE 5 GM PACKET PO ONE ×2 (09:31→11:22)
[2021-11-15 16:27] LABS: ABS Lymphocytes 0.2 10^3/ul (1.0-4.8); ABS Monocytes 0.2 10^3/ul (0-0.8); ABS Neutrophils 3.3 10^3/ul (1.5-7.7); Eosinophil % 0.1 %; Hematocrit 24 % (42-52); Lymphocyte % 6.1 %; Mean Corpuscular HGB Conc 33 g/dL (31-36); Mean Corpuscular Hemoglobin 30 pg (27-31); Mean Corpuscular Volume 90 fL (80-94); Mean Platelet Volume 10.4 fL (7.4-10.4); Platelet Count 102 10^3/uL (150-450); Red Blood Count 2.69 10^6 /uL (4.18-5.48); Red Cell Distribution Width 19 % (10-15); White Blood Count 3.8 10^3/uL (3.5-10.8)
[2021-11-15 17:06] LABS: Calcium 8.3 mg/dL (8.6-10.3); eGFR CKD-EPI 26.1 (>60)
[2021-11-15 17:07] LABS: Potassium 5.9 mmol/L (3.5-5.0)
[2021-11-15] MEDS: Furosemide 40 mg/4 ml IV VIAL IV SCH (17:07)
[2021-11-15] MEDS: SODIUM ZIRCONIUM CYCLOSILICATE 10 GM PACKET PO SCH ×2 (17:10→22:59)
[2021-11-16] MEDS: Furosemide 40 mg/4 ml IV VIAL IV SCH ×2 (06:04→16:56)
[2021-11-16] MEDS: Heparin 5000 UNITS/ML 1 mL VIAL SUBCUT SCH ×3 (06:04→21:30)
[2021-11-16 08:59] LABS: ABS Lymphocytes 0.5 10^3/ul (1.0-4.8); ABS Monocytes 0.4 10^3/ul (0-0.8); ABS Neutrophils 2.2 10^3/ul (1.5-7.7); Eosinophil % 0.7 %; Hematocrit 24 % (42-52); Lymphocyte % 15.6 %; Mean Corpuscular HGB Conc 33 g/dL (31-36); Mean Corpuscular Hemoglobin 30 pg (27-31); Mean Corpuscular Volume 90 fL (80-94); Mean Platelet Volume 10.1 fL (7.4-10.4); Nucleated Red Blood Cells % 0.4; Platelet Count 109 10^3/uL (150-450); Red Blood Count 2.69 10^6 /uL (4.18-5.48); Red Cell Distribution Width 19 % (10-15); White Blood Count 3.1 10^3/uL (3.5-10.8)
[2021-11-16 09:22] LABS: Albumin 2.7 g/dL (3.2-5.2); Albumin/Globulin Ratio 0.7 (1-3); Calcium 8.4 mg/dL (8.6-10.3); Globulin 3.8 g/dL (2-4); Potassium 4.4 mmol/L (3.5-5.0); Total Bilirubin 0.8 mg/dL (0.2-1.0); Total Protein 6.5 g/dL (6.4-8.9); eGFR CKD-EPI 28.1 (>60)
[2021-11-16] MEDS: SODIUM ZIRCONIUM CYCLOSILICATE 10 GM PACKET PO SCH (11:47)
[2021-11-17] MEDS: Furosemide 40 mg/4 ml IV VIAL IV SCH ×2 (05:39→17:56)
[2021-11-17] MEDS: Heparin 5000 UNITS/ML 1 mL VIAL SUBCUT SCH ×3 (05:39→21:46)
[2021-11-17] MEDS: Ondansetron 4 mg VIAL 2 MG/ML 2 ml VIAL IV PRN (14:11)
[2021-11-18] MEDS: Furosemide 40 mg/4 ml IV VIAL IV SCH (04:55)
[2021-11-18] MEDS: Heparin 5000 UNITS/ML 1 mL VIAL SUBCUT SCH ×3 (04:55→21:55)
[2021-11-18 06:28] LABS: ABS Lymphocytes 0.5 10^3/ul (1.0-4.8); ABS Monocytes 0.4 10^3/ul (0-0.8); ABS Neutrophils 2.5 10^3/ul (1.5-7.7); Eosinophil % 0.4 %; Hematocrit 24 % (42-52); Hemoglobin 7.7 g/dL (14.0-18.0); Lymphocyte % 15.9 %; Mean Corpuscular HGB Conc 33 g/dL (31-36); Mean Corpuscular Hemoglobin 29 pg (27-31); Mean Corpuscular Volume 89 fL (80-94); Mean Platelet Volume 9.8 fL (7.4-10.4); Nucleated Red Blood Cells % 0.1; Platelet Count 125 10^3/uL (150-450); Red Blood Count 2.66 10^6 /uL (4.18-5.48); Red Cell Distribution Width 19 % (10-15); White Blood Count 3.4 10^3/uL (3.5-10.8)
[2021-11-18 07:03] LABS: Albumin 2.7 g/dL (3.2-5.2); Albumin/Globulin Ratio 0.7 (1-3); Calcium 8.1 mg/dL (8.6-10.3); Globulin 3.8 g/dL (2-4); Magnesium 1.2 mg/dL (1.9-2.7); Potassium 4.7 mmol/L (3.5-5.0); Total Bilirubin 0.6 mg/dL (0.2-1.0); Total Protein 6.5 g/dL (6.4-8.9); eGFR CKD-EPI 24.7 (>60)
[2021-11-19] MEDS: Heparin 5000 UNITS/ML 1 mL VIAL SUBCUT SCH ×3 (05:31→22:09)
[2021-11-19 07:01] LABS: ABS Lymphocytes 0.6 10^3/ul (1.0-4.8); ABS Monocytes 0.4 10^3/ul (0-0.8); ABS Neutrophils 2.2 10^3/ul (1.5-7.7); Eosinophil % 0.7 %; Hematocrit 23 % (42-52); Hemoglobin 7.4 g/dL (14.0-18.0); Lymphocyte % 17.3 %; Mean Corpuscular HGB Conc 33 g/dL (31-36); Mean Corpuscular Hemoglobin 30 pg (27-31); Mean Corpuscular Volume 91 fL (80-94); Platelet Count 108 10^3/uL (150-450); Red Blood Count 2.48 10^6 /uL (4.18-5.48); Red Cell Distribution Width 20 % (10-15); White Blood Count 3.2 10^3/uL (3.5-10.8)
[2021-11-19 07:16] LABS: Potassium 4.3 mmol/L (3.5-5.0); eGFR CKD-EPI 25.2 (>60)
[2021-11-19 07:29] LABS: TSH Ultra Thyroid Stim Horm 0.78 mcIU/mL (0.34-5.60)
[2021-11-19 07:31] LABS: Free T4 0.97 ng/dL (0.61-1.12)
[2021-11-19 07:36] LABS: Ferritin 64.6 ng/mL (24-336)
[2021-11-19] MEDS ORDERED: Furosemide 40 mg/4 ml IV VIAL IV SCH (09:00)
[2021-11-19] MEDS: Ferric Gluconate IV 125 MG in NS 0.9% 100 ml BAG 100 ML IVPB SCH (11:39)
[2021-11-20] MEDS: Heparin 5000 UNITS/ML 1 mL VIAL SUBCUT SCH ×3 (05:54→20:10)
[2021-11-20 06:07] LABS: ABS Lymphocytes 0.7 10^3/ul (1.0-4.8); ABS Monocytes 0.4 10^3/ul (0-0.8); ABS Neutrophils 2.2 10^3/ul (1.5-7.7); Eosinophil % 0.6 %; Hematocrit 24 % (42-52); Hemoglobin 7.7 g/dL (14.0-18.0); Lymphocyte % 20.4 %; Mean Corpuscular HGB Conc 32 g/dL (31-36); Mean Corpuscular Hemoglobin 29 pg (27-31); Mean Corpuscular Volume 91 fL (80-94); Mean Platelet Volume 9.3 fL (7.4-10.4); Nucleated Red Blood Cells % 0.2; Platelet Count 100 10^3/uL (150-450); Red Blood Count 2.65 10^6 /uL (4.18-5.48); Red Cell Distribution Width 20 % (10-15); White Blood Count 3.3 10^3/uL (3.5-10.8)
[2021-11-20 06:30] LABS: Albumin 2.7 g/dL (3.2-5.2); Albumin/Globulin Ratio 0.8 (1-3); Calcium 8.3 mg/dL (8.6-10.3); Globulin 3.6 g/dL (2-4); Magnesium 1.4 mg/dL (1.9-2.7); Potassium 4.1 mmol/L (3.5-5.0); Total Bilirubin 0.6 mg/dL (0.2-1.0); Total Protein 6.3 g/dL (6.4-8.9); eGFR CKD-EPI 22.1 (>60)
[2021-11-20] MEDS ORDERED: Magnesium Sulfate IV 3 GM in NS 0.9% 100 ml BAG 100 ML IVPB ONE (08:09)
[2021-11-20] MEDS ORDERED: Magnesium Sulfate 2 GM IV (Premix) IVPB ONE (09:00)
[2021-11-20] MEDS: Ferric Gluconate IV 125 MG in NS 0.9% 100 ml BAG 100 ML IVPB SCH (09:08)
[2021-11-20] MEDS ORDERED: Magnesium Sulfate 1 GM IV 1 GM/100 ML BAG IV ONE (10:00)
[2021-11-21 05:41] LABS: ABS Lymphocytes 0.7 10^3/ul (1.0-4.8); ABS Monocytes 0.5 10^3/ul (0-0.8); ABS Neutrophils 2.4 10^3/ul (1.5-7.7); Eosinophil % 0.7 %; Hematocrit 23 % (42-52); Hemoglobin 7.5 g/dL (14.0-18.0); Lymphocyte % 18.9 %; Mean Corpuscular HGB Conc 32 g/dL (31-36); Mean Corpuscular Hemoglobin 29 pg (27-31); Mean Corpuscular Volume 91 fL (80-94); Platelet Count 107 10^3/uL (150-450); Red Blood Count 2.56 10^6 /uL (4.18-5.48); Red Cell Distribution Width 20 % (10-15); White Blood Count 3.6 10^3/uL (3.5-10.8)
[2021-11-21] MEDS: Heparin 5000 UNITS/ML 1 mL VIAL SUBCUT SCH ×3 (05:42→21:51)
[2021-11-21 06:09] LABS: Albumin 2.7 g/dL (3.2-5.2); Magnesium 2.2 mg/dL (1.9-2.7)
[2021-11-21 06:14] LABS: Calcium 8.4 mg/dL (8.6-10.3); Total Bilirubin 0.5 mg/dL (0.2-1.0)
[2021-11-21 06:15] LABS: Albumin/Globulin Ratio 0.7 (1-3); Globulin 3.7 g/dL (2-4); Total Protein 6.4 g/dL (6.4-8.9)
[2021-11-21 06:16] LABS: eGFR CKD-EPI 18.8 (>60)
[2021-11-21] MEDS: Ferric Gluconate IV 125 MG in NS 0.9% 100 ml BAG 100 ML IVPB SCH (09:49)
[2021-11-21 15:27] LABS: Case Number CR-22-23745
[2021-11-22] MEDS: Heparin 5000 UNITS/ML 1 mL VIAL SUBCUT SCH ×3 (06:01→21:20)
[2021-11-22 06:34] LABS: ABS Lymphocytes 0.6 10^3/ul (1.0-4.8); ABS Monocytes 0.4 10^3/ul (0-0.8); ABS Neutrophils 2.1 10^3/ul (1.5-7.7); Hematocrit 23 % (42-52); Hemoglobin 7.4 g/dL (14.0-18.0); Lymphocyte % 18.7 %; Mean Corpuscular HGB Conc 32 g/dL (31-36); Mean Corpuscular Hemoglobin 30 pg (27-31); Mean Corpuscular Volume 92 fL (80-94); Mean Platelet Volume 9.7 fL (7.4-10.4); Nucleated Red Blood Cells % 0.1; Platelet Count 112 10^3/uL (150-450); Red Blood Count 2.49 10^6 /uL (4.18-5.48); Red Cell Distribution Width 21 % (10-15); White Blood Count 3.2 10^3/uL (3.5-10.8)
[2021-11-22 07:00] LABS: Calcium 8.6 mg/dL (8.6-10.3); Magnesium 2.1 mg/dL (1.9-2.7); Potassium 3.9 mmol/L (3.5-5.0); eGFR CKD-EPI 20.3 (>60)
[2021-11-22] MEDS: Ferric Gluconate IV 125 MG in NS 0.9% 100 ml BAG 100 ML IVPB SCH (10:31)
[2021-11-23 06:11] LABS: ABS Lymphocytes 0.7 10^3/ul (1.0-4.8); ABS Monocytes 0.5 10^3/ul (0-0.8); ABS Neutrophils 2.5 10^3/ul (1.5-7.7); Eosinophil % 0.6 %; Hematocrit 22 % (42-52); Hemoglobin 6.9 g/dL (14.0-18.0); Lymphocyte % 19.4 %; Mean Corpuscular HGB Conc 32 g/dL (31-36); Mean Corpuscular Hemoglobin 30 pg (27-31); Mean Corpuscular Volume 93 fL (80-94); Mean Platelet Volume 9.8 fL (7.4-10.4); Nucleated Red Blood Cells % 0.1; Platelet Count 122 10^3/uL (150-450); Red Blood Count 2.34 10^6 /uL (4.18-5.48); Red Cell Distribution Width 21 % (10-15); White Blood Count 3.7 10^3/uL (3.5-10.8)
[2021-11-23 06:41] LABS: Calcium 8.4 mg/dL (8.6-10.3); Potassium 3.9 mmol/L (3.5-5.0)
[2021-11-23 06:46] LABS: eGFR CKD-EPI 21.5 (>60)
[2021-11-23] MEDS: Heparin 5000 UNITS/ML 1 mL VIAL SUBCUT SCH ×3 (09:06→21:07)
[2021-11-23] MEDS: Ferric Gluconate IV 125 MG in NS 0.9% 100 ml BAG 100 ML IVPB SCH ×2 (12:04→12:32)
[2021-11-24] MEDS: Heparin 5000 UNITS/ML 1 mL VIAL SUBCUT SCH ×3 (05:04→20:29)
[2021-11-24 06:18] LABS: ABS Lymphocytes 0.9 10^3/ul (1.0-4.8); ABS Monocytes 0.4 10^3/ul (0-0.8); ABS Neutrophils 2.5 10^3/ul (1.5-7.7); Eosinophil % 0.3 %; Hematocrit 25 % (42-52); Hemoglobin 8.2 g/dL (14.0-18.0); Lymphocyte % 22.5 %; Mean Corpuscular HGB Conc 33 g/dL (31-36); Mean Corpuscular Hemoglobin 30 pg (27-31); Mean Corpuscular Volume 90 fL (80-94); Mean Platelet Volume 9.9 fL (7.4-10.4); Nucleated Red Blood Cells % 0.1; Platelet Count 113 10^3/uL (150-450); Red Blood Count 2.78 10^6 /uL (4.18-5.48); Red Cell Distribution Width 22 % (10-15); White Blood Count 3.8 10^3/uL (3.5-10.8)
[2021-11-24 06:54] LABS: Calcium 8.3 mg/dL (8.6-10.3); Potassium 3.9 mmol/L (3.5-5.0); eGFR CKD-EPI 19.3 (>60)
[2021-11-24] MEDS: Ferric Gluconate IV 125 MG in NS 0.9% 100 ml BAG 100 ML IVPB SCH (11:00)
[2021-11-25] MEDS: Heparin 5000 UNITS/ML 1 mL VIAL SUBCUT SCH ×3 (05:16→20:05)
[2021-11-25 10:05] LABS: Calcium 8.9 mg/dL (8.6-10.3)
[2021-11-25] MEDS: Ferric Gluconate IV 125 MG in NS 0.9% 100 ml BAG 100 ML IVPB SCH (11:29)
[2021-11-26] MEDS: Heparin 5000 UNITS/ML 1 mL VIAL SUBCUT SCH ×3 (05:07→20:47)
[2021-11-26 06:57] LABS: ABS Lymphocytes 0.7 10^3/ul (1.0-4.8); ABS Monocytes 0.4 10^3/ul (0-0.8); Eosinophil % 0.5 %; Hematocrit 26 % (42-52); Hemoglobin 8.5 g/dL (14.0-18.0); Lymphocyte % 23.9 %; Mean Corpuscular HGB Conc 33 g/dL (31-36); Mean Corpuscular Hemoglobin 31 pg (27-31); Mean Corpuscular Volume 93 fL (80-94); Mean Platelet Volume 9.5 fL (7.4-10.4); Nucleated Red Blood Cells % 0.2; Platelet Count 134 10^3/uL (150-450); Red Blood Count 2.79 10^6 /uL (4.18-5.48); Red Cell Distribution Width 22 % (10-15); White Blood Count 3.1 10^3/uL (3.5-10.8)
[2021-11-26 07:17] LABS: Potassium 4.2 mmol/L (3.5-5.0)
[2021-11-26] MEDS: Ferric Gluconate IV 125 MG in NS 0.9% 100 ml BAG 100 ML IVPB SCH (10:18)
[2021-11-27 07:43] LABS: Calcium 9.1 mg/dL (8.6-10.3); Potassium 4.3 mmol/L (3.5-5.0); eGFR CKD-EPI 22.7 (>60)
[2021-11-27] MEDS: Heparin 5000 UNITS/ML 1 mL VIAL SUBCUT SCH ×3 (08:25→21:38)
[2021-11-27] MEDS: Ferric Gluconate IV 125 MG in NS 0.9% 100 ml BAG 100 ML IVPB SCH (12:13)
[2021-11-28] MEDS: Heparin 5000 UNITS/ML 1 mL VIAL SUBCUT SCH ×3 (06:02→22:27)
[2021-11-28 07:30] LABS: Calcium 8.8 mg/dL (8.6-10.3)
[2021-11-28 07:36] LABS: eGFR CKD-EPI 21.9 (>60)
[2021-11-28 13:21] LABS: ABS Lymphocytes 0.5 10^3/ul (1.0-4.8); ABS Monocytes 0.5 10^3/ul (0-0.8); ABS Neutrophils 3.1 10^3/ul (1.5-7.7); Eosinophil % 0.5 %; Hematocrit 29 % (42-52); Hemoglobin 8.9 g/dL (14.0-18.0); Lymphocyte % 12.5 %; Mean Corpuscular HGB Conc 31 g/dL (31-36); Mean Corpuscular Hemoglobin 30 pg (27-31); Mean Corpuscular Volume 95 fL (80-94); Mean Platelet Volume 9.6 fL (7.4-10.4); Platelet Count 163 10^3/uL (150-450); Red Cell Distribution Width 23 % (10-15); White Blood Count 4.2 10^3/uL (3.5-10.8)
[2021-11-29 07:05] LABS: ABS Lymphocytes 0.6 10^3/ul (1.0-4.8); ABS Monocytes 0.4 10^3/ul (0-0.8); ABS Neutrophils 1.4 10^3/ul (1.5-7.7); Eosinophil % 0.6 %; Hematocrit 27 % (42-52); Hemoglobin 8.7 g/dL (14.0-18.0); Lymphocyte % 25.9 %; Mean Corpuscular HGB Conc 33 g/dL (31-36); Mean Corpuscular Hemoglobin 31 pg (27-31); Mean Corpuscular Volume 96 fL (80-94); Mean Platelet Volume 9.7 fL (7.4-10.4); Nucleated Red Blood Cells % 0.2; Platelet Count 132 10^3/uL (150-450); Red Cell Distribution Width 23 % (10-15); White Blood Count 2.5 10^3/uL (3.5-10.8)
[2021-11-29 07:31] LABS: Albumin/Globulin Ratio 0.7 (1-3); Calcium 8.8 mg/dL (8.6-10.3); Globulin 4.1 g/dL (2-4); Potassium 4.1 mmol/L (3.5-5.0); Total Bilirubin 0.4 mg/dL (0.2-1.0); Total Protein 7.1 g/dL (6.4-8.9); eGFR CKD-EPI 23.2 (>60)
[2021-11-29] MEDS: Heparin 5000 UNITS/ML 1 mL VIAL SUBCUT SCH ×3 (08:14→21:54)
[2021-11-30] MEDS: Heparin 5000 UNITS/ML 1 mL VIAL SUBCUT SCH (07:13)
[2021-11-30 10:52] LABS: Calcium 8.8 mg/dL (8.6-10.3); Potassium 3.9 mmol/L (3.5-5.0); eGFR CKD-EPI 24.5 (>60)
[2021-11-30 11:29] VITALS: BP 128/53
== END 2021-11-30 16:04 | disposition home health service (06) | DRG 189 ==
LOC: ED 09:14 → EDHOLD 13:05 → SUATTDRO 13:05 → ICU 14:17 → MED 10-28 21:57 → ICU 10-31 20:55 → MED 11-08 15:43 → ICU 11-14 20:15 → MEDTELE 11-15 18:04
PROVIDERS: ADMIT Internal Medicine; ATTEND Internal Medicine Hematology & Oncology